=== PATIENT | male | born 1935 | race Caucasian/White ===

== ENCOUNTER 2016-06-15 14:42 | Outpatient (CLI) | payer MEDICARE, OTHER | END 2016-06-15 14:43 | disposition home or self-care (01) | DX: M47.816 Spondylosis without myelopathy or radiculopathy, lumbar region (principal); M51.36 Other intervertebral disc degeneration, lumbar region; M41.85 Other forms of scoliosis, thoracolumbar region ==

== ENCOUNTER 2016-12-17 10:28 | Outpatient (CLI) | payer MEDICARE, OTHER | END 2016-12-17 10:29 | disposition home or self-care (01) | LOC: SC 10:28 | PROVIDERS: ATTEND Nurse Practitioner Family | DX: G47.31 Primary central sleep apnea (principal) | CPT/HCPCS: 99214; G0463; 99212 ==

== ENCOUNTER 2017-03-09 14:54 | Outpatient (CLI) | payer MEDICARE, OTHER | END 2017-03-09 14:55 | disposition home or self-care (01) | LOC: LAB 14:54 | PROVIDERS: ATTEND Urology | DX: N40.1 Benign prostatic hyperplasia with lower urinary tract symptoms (principal) | CPT/HCPCS: 36415; 84153 ==

== ENCOUNTER 2017-05-30 11:44 | Emergency (ER) | payer MEDICARE, OTHER ==
[2017-05-30 11:49] VITALS: BP 163/101
--- NOTE | 2017-05-30 12:15 | ED Physician Documentation ---
PD HPI URI - Stated complaint Stated Complaint: COUGH/CHEST TIGHTNESS/NAUSEA - Chief complaint Chief Complaint: Resp - History obtained from History obtained from: Patient, Family () - History of Present Illness Timing - onset: Other (82-year-old gentleman with history of A. fib/pacemaker on warfarin presents with 2 days of illness. It only really got bad yesterday with cough productive of greenish sputum, mild shortness of breath. He denies fevers, chills, body aches but he does have a mild runny nose. He has had 2 episodes of chest tightness, lasting about an hour each. They were nonexertional. He has no chest pain at this time. No sick contacts or recent travel.) Review of Systems Ten Systems: 10 systems reviewed and negative Constitutional: denies: Fever, Chills Eyes: denies: Decreased vision, Photophobia Ears: denies: Ear pain, Drainage/discharge Nose: reports: Rhinorrhea / runny nose Throat: denies: Sore throat Cardiac: denies: Palpitations, Pedal edema, Calf pain Respiratory: reports: Dyspnea, Cough PD PAST MEDICAL HISTORY - Past Medical History Past Medical History: Yes Cardiovascular: Atrial fibrillation - Past Surgical History Past Surgical History: Yes Ortho: Spine surgery - Present Medications Home Medications: Ambulatory Orders Medication Instructions Recorded Confirmed Albuterol Sulfate [Proventil Hfa 1 - 2 puffs IH Q4H PRN #1 05/30/17 Inhaler] hfa.aer.ad Doxycycline Hyclate 100 mg PO BID #14 tablet 05/30/17 guaiFENesin/CODEINE [Robitussin AC] 5 - 10 ml PO Q6H PRN #120 ml 05/30/17 - Allergies Allergies/Adverse Reactions: Allergies Allergy/AdvReac Type Severity Reaction Status Date / Time No Known Drug Allergies Allergy Verified 05/30/17 11:49 - Living Situation Living Situation: reports: With spouse/s.o. - Social History Does the pt smoke?: No Smoking Status: Former smoker Does the pt drink ETOH?: Yes Does the pt have substance abuse?: No - Family History Family history: reports: Non contributory PD ED PE NORMAL - Vitals Vital signs reviewed: Yes - General General: Alert and oriented X 3, No acute distress - HEENT HEENT: PERRL, EOMI, Ears normal, Moist mucous membranes, Pharynx benign - Neck Neck: Supple, no meningeal sign, No bony TTP - Cardiac Cardiac: RRR, No murmur - Respiratory Respiratory: No respiratory distress, Other (Mildly diminished at the left base and right middle lobe) - Abdomen Abdomen: Soft, Non tender - Extremities Extremities: No deformity, No tenderness to palpate, No edema, No calf tenderness / cord - Neuro Neuro: Alert and oriented X 3, 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, Normal speech - Psych Psych: Normal mood, Normal affect Results - Vitals Vitals: Vital Signs - 24 hr 05/30/17 11:47 Temperature 37.1 C Heart Rate 83 Respiratory 20 Rate Blood Pressure 163/101 H O2 Saturation 96 Oxygen O2 Source Room air - EKG (time done) 1201 Rate: Rate (enter#) (70) Rhythm: Paced Computer interpretation: Agree with computer - Labs Labs: Laboratory Tests 05/30/17 05/30/17 05/30/17 12:30 12:30 12:30 WBC 9.8 RBC 4.10 L Hgb 13.4 L Hct 39.3 L MCV 95.9 H MCH 32.7 H MCHC 34.1 RDW 14.1 Plt Count 138 MPV 8.0 Neut # 7.6 H Lymph # 1.2 L Tama # 0.9 Eos # 0.0 Baso # 0.0 Absolute Nucleated RBC 0.00 Nucleated RBC % 0.0 PT 29.9 H INR 2.8 H Sodium 134 L Potassium 4.2 Chloride 96 L Carbon Dioxide 34 H Anion Gap 4.0 L BUN 15 Creatinine 1.0 Estimated GFR (MDRD) 72 L Glucose 113 H Calcium 9.2 Total Bilirubin 2.1 H AST 34 ALT 32 Alkaline Phosphatase 76 Troponin I Total Protein 6.7 Albumin 4.1 Globulin 2.6 Albumin/Globulin Ratio 1.6 Lipase 22 05/30/17 12:30 WBC RBC Hgb Hct MCV MCH MCHC RDW Plt Count MPV Neut # Lymph # Tama # Eos # Baso # Absolute Nucleated RBC Nucleated RBC % PT INR Sodium Potassium Chloride Carbon Dioxide Anion Gap BUN Creatinine Estimated GFR (MDRD) Glucose Calcium Total Bilirubin AST ALT Alkaline Phosphatase Troponin I < 0.04 Total Protein Albumin Globulin Albumin/Globulin Ratio Lipase - Rads (name of study) 2v chest Radiology: EMP read contemporaneously (Cardiomegaly with mild fluid overload) PD MEDICAL DECISION MAKING - ED course ED course: 82-year-old presents with a syndrome consistent with bronchitis or pneumonia, chest x-ray is relatively clear, the radiologist comments on mild fluid overload. His lab work is reassuring, INR 2.8. The bilirubin of 2.1 was discussed with him and his in follow-up was advised. Departure - Departure Disposition: Home, Self Care Clinical Impression: Bronchitis, Adequate anticoagulation on anticoagulant therapy Condition: Good Record reviewed to determine appropriate education?: Yes Instructions: ED Bronchitis Asthmatic Prescriptions: Albuterol Sulfate [Proventil Hfa Inhaler] 1 - 2 puffs IH Q4H PRN #1 hfa.aer.ad PRN Reason: Cough Doxycycline Hyclate 100 mg PO BID #14 tablet guaiFENesin/CODEINE [Robitussin AC] 5 - 10 ml PO Q6H PRN #120 ml PRN Reason: Cough Comments: Your INR today is 2.8 which is adequate, but I expect it to go up while on antibiotics. Skip your dose tomorrow night and have it checked on Wednesday as is routine. Your bilirubin is a little high at 2.1, discuss this with Dr. Rod in follow-up , follow-up with Dr. Rod later this week. Your blood pressure was elevated today on check into the emergency department. This does not mean that you have hypertension, it is a common phenomenon to come to the emergency department and have elevated blood pressure. I recommend that you see your primary care physician within the week to have it rechecked when you are feeling better.
[2017-05-30 12:37] LABS: BASOPHILS % (AUTO) 0.5 %; EOSINOPHILS % (AUTO) 0.5 %; HGB - HEMOGLOBIN 13.4 g/dL (14.0-18.0); LYMPHOCYTES # (AUTO) 1.2 10^3/uL (1.5-3.5); LYMPHOCYTES % (AUTO) 11.9 %; MEAN CORPUSCULAR HEMOGLOBIN 32.7 pg (27.0-31.0); MEAN CORPUSCULAR HGB CONC 34.1 g/dL (32.0-36.0); MEAN CORPUSCULAR VOLUME 95.9 fL (80.0-94.0); MONOCYTES # (AUTO) 0.9 10^3/uL (0.0-1.0); NEUTROPHILS # (AUTO) 7.6 10^3/uL (1.5-6.6); NEUTROPHILS % (AUTO) 78.1 %; PLT - PLATELET COUNT 138 10^3/uL (130-450); RED CELL DISTRIBUTION WIDTH 14.1 % (12.0-15.0); WHITE BLOOD COUNT 9.8 x10^3/uL (4.8-10.8)
[2017-05-30 12:43] LABS: INR 2.8 (0.8-1.2); PT - PROTHROMBIN TIME 29.9 secs (9.9-12.6)
--- NOTE | 2017-05-30 12:45 | XRAY Preliminary Report ---
Exam: XR CHEST 2 VIEW X-RAY IMPRESSION: 1. No focal consolidation. 2. Cardiomegaly with mild pulmonary vascular congestion. Superimposed infectious process cannot be ex cluded. [facility] SITE ID: [id number]
--- NOTE | 2017-05-30 12:46 | XRAY Report ---
EXAM: CHEST RADIOGRAPHY EXAM DATE: 05/30/2017 12:14 PM. CLINICAL HISTORY: Cough. COMPARISON: Chest radiograph dated 12/23/2012. TECHNIQUE: 2 views. FINDINGS: Lungs/Pleura: Increased interstitial markings in the lung bases with no focal consolidation. No pleur al effusion. Mediastinum: The heart is enlarged. This is new since the prior examination. The pulmonary vasculatur e is indistinct. Other: None. IMPRESSION: 1. No focal consolidation. 2. Cardiomegaly with mild pulmonary vascular congestion. Superimposed infectious process cannot be ex cluded. [facility] Referring Provider Line: [phone] SITE ID: [id number]
[2017-05-30 12:50] LABS: ALBUMIN 4.1 g/dL (3.2-5.5); ALBUMIN/GLOBULIN RATIO 1.6 (1.0-2.2); BILIRUBIN,TOTAL 2.1 mg/dL (0.2-1.0); CALCIUM 9.2 mg/dL (8.5-10.3); TOTAL PROTEIN 6.7 g/dL (6.7-8.2)
== END 2017-05-30 13:10 | disposition home or self-care (01) ==
LOC: ED 11:44
DX: J40 Bronchitis, not specified as acute or chronic (principal); I48.91 Unspecified atrial fibrillation; Z79.01 Long term (current) use of anticoagulants; Z95.0 Presence of cardiac pacemaker; Z87.891 Personal history of nicotine dependence; R03.0 Elevated blood-pressure reading, without diagnosis of hypertension
CPT/HCPCS: 36415; 71046; 80053; 83690; 84484; 85025; 85610; 93005; 99283; 99284

== ENCOUNTER 2017-09-28 08:00 | Outpatient (CLI) | payer MEDICARE, OTHER ==
[2017-09-28 12:43] LABS: BASOPHILS # (AUTO) 0.1 10^3/uL (0.0-0.1); BASOPHILS % (AUTO) 1.2 %; EOSINOPHILS # (AUTO) 0.1 10^3/uL (0.0-0.7); HGB - HEMOGLOBIN 13.7 g/dL (14.0-18.0); LYMPHOCYTES # (AUTO) 1.2 10^3/uL (1.5-3.5); LYMPHOCYTES % (AUTO) 28.3 %; MEAN CORPUSCULAR HEMOGLOBIN 32.7 pg (27.0-31.0); MEAN CORPUSCULAR HGB CONC 33.5 g/dL (32.0-36.0); MEAN CORPUSCULAR VOLUME 97.5 fL (80.0-94.0); MEAN PLATELET VOLUME 8.8 fL (7.4-11.4); MONOCYTES # (AUTO) 0.6 10^3/uL (0.0-1.0); MONOCYTES % (AUTO) 14.6 %; NEUTROPHILS # (AUTO) 2.3 10^3/uL (1.5-6.6); NEUTROPHILS % (AUTO) 52.9 %; PLT - PLATELET COUNT 149 10^3/uL (130-450); RED BLOOD COUNT 4.19 10^6/uL (4.70-6.10); RED CELL DISTRIBUTION WIDTH 14.8 % (12.0-15.0); WHITE BLOOD COUNT 4.4 x10^3/uL (4.8-10.8)
[2017-09-28 13:11] LABS: ALBUMIN 4.1 g/dL (3.2-5.5); ALBUMIN/GLOBULIN RATIO 1.6 (1.0-2.2); BILIRUBIN,TOTAL 0.9 mg/dL (0.2-1.0); CALCIUM 9.3 mg/dL (8.5-10.3); CREATININE 0.9 mg/dL (0.6-1.2); TOTAL PROTEIN 6.7 g/dL (6.7-8.2)
== END 2017-09-28 08:01 ==
LOC: LAB.WCP 08:00
PROVIDERS: ATTEND Family Medicine
DX: R53.83 Other fatigue (principal); I48.91 Unspecified atrial fibrillation; E74.39 Other disorders of intestinal carbohydrate absorption; N28.9 Disorder of kidney and ureter, unspecified
CPT/HCPCS: 36415; 80053; 84443; 85025

== ENCOUNTER 2017-10-04 06:48 | Emergency (ER) | payer MEDICARE, OTHER ==
[2017-10-04] MEDS ORDERED: DEXAMETHASONE 10 MG/ML VIAL PO STA (07:17)
--- NOTE | 2017-10-04 07:19 | ED Physician Documentation ---
PD HPI LOWER EXT INJURY - Stated complaint Stated Complaint: LEFT ANKLE SWOLLEN - Chief complaint Chief Complaint: Ext Problem - History obtained from History obtained from: Patient, Family - History of Present Illness PD HPI LOW EXT INJURY LOCATION: Left, Ankle Type of injury: Other (unknown) Where injury occurred: Home Timing - onset: Last night Timing - duration: Hours Timing - details: Gradual onset, Still present Improved by: Rest, Immobilization Worsened by: Moving, Palpating Associated symptoms: Swelling. No: Weakness, Numbness Contributing factors: Anticoagulated Similar symptoms before: Diagnosis (gout) Recently seen: Not recently seen - Additional information Additional information: 82-year-old male with a history of atrial fibrillation developed spontaneous left ankle pain and swelling yesterday evening. He states that he had been out in his yard came into his home sitting at his computer when he developed pain and swelling in his ankle. The pain was bad enough that he took 2 Vicodin which did not really help much with the pain. He is come in this morning limping able to walk on his ankle with swelling in his ankle. He does relate a prior history of gout Review of Systems Constitutional: denies: Fever Eyes: denies: Decreased vision Ears: denies: Ear pain Nose: denies: Congestion Throat: denies: Sore throat Cardiac: denies: Chest pain / pressure Respiratory: denies: Dyspnea, Cough GI: denies: Abdominal Pain, Nausea, Vomiting : denies: Dysuria Skin: denies: Rash Musculoskeletal: reports: Extremity pain, Joint pain, Joint swelling. denies: Neck pain, Back pain Neurologic: denies: Generalized weakness, Focal weakness, Numbness PD PAST MEDICAL HISTORY - Past Medical History Cardiovascular: Atrial fibrillation - Past Surgical History Past Surgical History: Yes Ortho: Spine surgery - Present Medications Home Medications: Ambulatory Orders Medication Instructions Recorded Confirmed Albuterol Sulfate [Proventil Hfa 1 - 2 puffs IH Q4H PRN #1 05/30/17 Inhaler] hfa.aer.ad Doxycycline Hyclate 100 mg PO BID #14 tablet 05/30/17 guaiFENesin/CODEINE [Robitussin AC] 5 - 10 ml PO Q6H PRN #120 ml 05/30/17 - Allergies Allergies/Adverse Reactions: Allergies Allergy/AdvReac Type Severity Reaction Status Date / Time No Known Drug Allergies Allergy Verified 10/04/17 06:54 - Social History Does the pt smoke?: No Smoking Status: Former smoker Does the pt drink ETOH?: Yes Does the pt have substance abuse?: No PD ED PE NORMAL - Vitals Vital signs reviewed: Yes (hypertensive ) - General General: Alert and oriented X 3, No acute distress, Well developed/nourished - HEENT HEENT: Atraumatic, PERRL, EOMI - Respiratory Respiratory: No respiratory distress - Derm Derm: Normal color, Warm and dry, No rash - Extremities Extremities: No deformity, Other (There is swelling and tenderness to the left ankle joint, both medial and lateral and pain with flexion of the foot. distal n /v intact. ) - Neuro Neuro: No motor deficit, No sensory deficit Eye Opening: Spontaneous Motor: Obeys Commands Verbal: Oriented GCS Score: 15 - Psych Psych: Normal mood, Normal affect Results - Vitals Vitals: Vital Signs - 24 hr 10/04/17 06:52 Temperature 36.5 C Heart Rate 71 Blood Pressure 150/103 H O2 Saturation 100 Oxygen O2 Source Room air - Labs Labs: Laboratory Tests 10/04/17 07:23 Whole Blood INR 2.8 H - Rads (name of study) left ankle Radiology: Prelim report reviewed (Impression: 1. Mild degenerative osteoarthritis of the ankle. 2. A small joint effusion is present. No fracture or other acute osseous abnormality. 3.Mild soft tissue swelling around the ankle.), EMP read indepedently, See rad report Procedures - Splint (location) left ankle Splint applied by: Tech Type of splint: Fiberglass, Posterior Other: Patient tolerated well, No complications, Neurovascular intact, Good alignment PD MEDICAL DECISION MAKING - ED course Complexity details: reviewed old records, reviewed results, re-evaluated patient , considered differential, d/w patient, d/w family ED course: 82-year-old male with history of atrial fibrillation on Coumadin has developed left ankle swelling and pain consistent with acute gout here. He has had gout previously he does not have any known injury to the area there is are no bony abnormalities on the x-ray of the ankle. He does have joint effusion and swelling. He is administered dexamethasone 10 mg orally. Departure - Departure Disposition: 01 Home, Self Care Clinical Impression: Adequate anticoagulation on anticoagulant therapy Gout attack Qualifiers: Gout site: ankle Gout etiology: unspecified cause Laterality: left Qualified Code(s): M10.9 - Gout, unspecified Condition: Stable Instructions: ED Arthritis Gout Follow-Up: Getachew Rod MD [Primary Care Provider] -
--- NOTE | 2017-10-04 07:51 | XRAY Preliminary Report ---
Exam: XR ANKLE 3 VIEW LT IMPRESSION: 1. Mild degenerative osteoarthritis of the ankle. A small joint effusion is present. 2. No fracture or other acute osseous abnormality. 3. Mild soft tissue swelling around the ankle. [facility] SITE ID: [id number]
--- NOTE | 2017-10-04 07:51 | XRAY Report ---
EXAM: LEFT ANKLE RADIOGRAPHY EXAM DATE: 10/04/2017 07:42 AM. CLINICAL HISTORY: Lateral swelling/pain. No known injury. COMPARISON: 01/10/2015. TECHNIQUE: 3 views. FINDINGS: Bones: No fractures or bone lesions. A small calcaneal plantar spur is present. Joints: No subluxation. The ankle mortise is normally aligned. There is mild degenerative osteoarthri tis of the ankle. Small joint effusion is present. Soft Tissues: There is mild soft tissue swelling around the ankle. Extensive vascular calcifications are present. IMPRESSION: 1. Mild degenerative osteoarthritis of the ankle. A small joint effusion is present. 2. No fracture or other acute osseous abnormality. 3. Mild soft tissue swelling around the ankle. [facility] Referring Provider Line: [phone] SITE ID: [id number]
[2017-10-04 09:36] VITALS: BP 143/87
== END 2017-10-04 09:36 | disposition home or self-care (01) ==
LOC: ED 06:48
DX: M10.9 Gout, unspecified (principal); I48.91 Unspecified atrial fibrillation; Z79.01 Long term (current) use of anticoagulants; Z87.891 Personal history of nicotine dependence
CPT/HCPCS: 29515; 85610; 99283

== ENCOUNTER 2017-11-27 08:41 | Outpatient (CLI) | payer MEDICARE, OTHER ==
--- NOTE | 2017-11-28 00:11 | CT Report ---
Procedure Date: 11/27/2017 Accession Number: [id number] / [id number] Procedure: CT - Sinuses CPT Code: FULL RESULT: EXAM: CT MAXILLOFACIAL WITHOUT CONTRAST COMPARISON: CT maxillofacial, 12/25/2014. CLINICAL HISTORY: Chronic pansinusitis, cough. TECHNIQUE: Axial images were acquired of the face without intravenous contrast. Coronal and Sagittal reconstructions are created from source data. In accordance with CT protocol optimization, one or more of the following dose reduction techniques were utilized for this exam: automated exposure control, adjustment of mA and/or KV based on patient size, or use of iterative reconstructive technique. FINDINGS: Incompletely characterized is extensive facet arthropathy involving the left C2-C3 facet, incompletely characterized. Visualized intracranial content shows no discrete masses, there is volume loss. No lytic or blastic bone lesions are seen. Mastoids are clear. Middle ears are clear. Zygomatic arches are intact. Temporomandibular joints are normally located. Medial lateral pterygoid plates are intact. Maxillary sinuses show no evidence of acute or chronic sinusitis. Ethmoid sinuses are clear, there is minimal mucosal thickening anteriorly. Sphenoid sinuses are clear. Nasofrontal ducts are open, frontal sinuses are well-aerated. Findings are quite similar to the 2015 prior study. IMPRESSION: Marked left-sided C2-C3 facet arthropathy, incompletely characterized. No convincing evidence of acute sinusitis. Minimal evidence to suggest chronic sinusitis, there is modest mucosal thickening involving the anterior ethmoid air cells, similar to the prior 2014 study.
== END 2017-11-27 08:42 | disposition home or self-care (01) ==
LOC: DI 08:41
PROVIDERS: ATTEND Otolaryngology
DX: J32.4 Chronic pansinusitis (principal); R05 Cough; M12.88 Other specific arthropathies, not elsewhere classified, other specified site
CPT/HCPCS: 70486

== ENCOUNTER 2017-12-13 10:48 | Outpatient (CLI) | payer MEDICARE, OTHER | END 2017-12-13 10:49 | disposition home or self-care (01) | LOC: SC 10:48 | PROVIDERS: ATTEND Nurse Practitioner Family | DX: G47.33 Obstructive sleep apnea (adult) (pediatric) (principal) | CPT/HCPCS: 99214; G0463; 99212 ==

== ENCOUNTER 2018-02-21 10:20 | Outpatient (CLI) | payer MEDICARE, OTHER | END 2018-02-21 10:21 | disposition home or self-care (01) | LOC: SC 10:20 | PROVIDERS: ATTEND Nurse Practitioner Family | DX: G47.33 Obstructive sleep apnea (adult) (pediatric) (principal) | CPT/HCPCS: 99214; G0463; 99212 ==

== ENCOUNTER 2018-06-07 09:25 | Outpatient (CLI) | payer MEDICARE, OTHER ==
--- NOTE | 2018-06-07 14:54 | XRAY Report ---
Reason: NECK PAIN Procedure Date: 06/07/2018 Accession Number: [id number] / [id number] Procedure: XR - Cervical Spine 2 View CPT Code: FULL RESULT: EXAM: CERVICAL SPINE RADIOGRAPHY EXAM DATE: 06/07/2018 10:22 AM. CLINICAL HISTORY: NECK PAIN. COMPARISONS: Cervical spine 06/16/2012. TECHNIQUE: 3 views. FINDINGS: Alignment: 2 mm anterolisthesis of C4 upon C5 is favored to be degenerative. There is bony fusion of facets at that level. There is cervical kyphosis likely contributing to anterior compression of the C6 vertebral body. Bones: The cervical vertebral bodies and posterior elements are well visualized from the skull base through C7-T1. No fractures or bone lesions. The lateral masses are symmetric. Disks: There is mild disk space narrowing at C3-C4 and C4-C5. There is moderate disk space narrowing at C5-C6. There is severe disk space narrowing at C6-C7 and C7-T1. There are large anterior osteophytes. Facets: Moderate to severe degenerative disease. Soft Tissues: No prevertebral soft tissue swelling. The visualized lung apices are clear. There is calcification of the nuchal ligament. IMPRESSION: Moderate to severe cervical spondylosis without appreciable change. [facility]
--- NOTE | 2018-06-08 10:06 | XRAY Report ---
Reason: NECK PAIN,ANKLE JOINT PAIN,RIGHT Procedure Date: 06/07/2018 Accession Number: [id number] / [id number] Procedure: XR - Ankle 2 View RT CPT Code: FULL RESULT: EXAM: RIGHT ANKLE RADIOGRAPHY EXAM DATE: 06/07/2018 10:19 AM. CLINICAL HISTORY: ANKLE JOINT PAIN,RIGHT. No injury. History of arthritis. COMPARISON: ANKLE 3 VIEW LT 01/10/2015 10:33 AM. TECHNIQUE: 2 views. FINDINGS: Bones: Normal. No fractures or bone lesions. Small ossicles are noted inferior to the medial and lateral malleoli. Joints: Moderate joint space narrowing at the ankle joint diffusely. No subluxation or effusion. Minimal osteophyte formation. No subchondral cyst formation or sclerosis. Soft Tissues: No soft tissue swelling. Extensive atherosclerotic calcification. IMPRESSION: Moderate right ankle joint osteoarthritis. [facility]
== END 2018-06-07 09:26 | disposition home or self-care (01) ==
LOC: DI 09:25
PROVIDERS: ATTEND Family Medicine
DX: M47.812 Spondylosis without myelopathy or radiculopathy, cervical region (principal); M50.30 Other cervical disc degeneration, unspecified cervical region; M48.02 Spinal stenosis, cervical region; M25.78 Osteophyte, vertebrae; M19.071 Primary osteoarthritis, right ankle and foot
CPT/HCPCS: 72040

== ENCOUNTER 2018-07-26 07:25 | Outpatient (CLI) | payer MEDICARE, OTHER ==
[2018-07-26 08:32] LABS: ALBUMIN 3.8 g/dL (3.2-5.5); ALBUMIN/GLOBULIN RATIO 1.3 (1.0-2.2); ALKALINE PHOSPHATASE 72 IU/L (42-121); ALT ALANINE AMINOTRANSFERASE 44 IU/L (10-60); AST ASPARTATE AMINOTRANSFERASE 41 IU/L (10-42); BILIRUBIN,TOTAL 0.7 mg/dL (0.2-1.0); BUN - BLOOD UREA NITROGEN 32 mg/dL (6-20); CHOL/HDL RATIO 2.3 (<5.0); CHOLESTEROL 195 mg/dL; CREATININE 1.4 mg/dL (0.6-1.2); GFR - MDRD 49 (>89); HDL CHOLESTEROL 85 mg/dL; LDL CHOLESTEROL,CALCULATED 101 mg/dL; LDL/HDL RATIO 1.2 (<3.6); TOTAL PROTEIN 6.7 g/dL (6.7-8.2); VLDL CHOLESTEROL 9 mg/dL
[2018-07-26 09:15] LABS: CALCIUM 9.1 mg/dL (8.5-10.3); CARBON DIOXIDE - CO2 29 mmol/L (21-32); CHLORIDE 100 mmol/L (101-111); GLUCOSE 105 mg/dL (70-100); SODIUM 139 mmol/L (135-145)
== END 2018-07-26 07:26 | disposition home or self-care (01) ==
LOC: LAB 07:25
PROVIDERS: ATTEND Internal Medicine Cardiovascular Disease
DX: E78.5 Hyperlipidemia, unspecified (principal); I10 Essential (primary) hypertension
CPT/HCPCS: 36415; 80053; 80061; 83721

== ENCOUNTER 2018-08-01 14:20 | Outpatient (CLI) | payer MEDICARE, OTHER ==
[2018-08-01 14:38] LABS: BILIRUBIN,URINE NEGATIVE (NEGATIVE); GLUCOSE, URINE (UA) NEGATIVE (NEGATIVE); KETONES,URINE (UA) NEGATIVE (NEGATIVE); LEUKOCYTE ESTERASE, URINE NEGATIVE (NEGATIVE); NITRITE,URINE NEGATIVE (NEGATIVE); OCCULT BLOOD,URINE NEGATIVE (NEGATIVE); PROTEIN,URINE NEGATIVE (NEGATIVE); UROBILINOGEN,URINE 0.2 (NORMAL) E.U./dL (NORMAL)
[2018-08-01 14:40] LABS: BASOPHILS # (AUTO) 0.1 10^3/uL (0.0-0.1); BASOPHILS % (AUTO) 1.1 %; EOSINOPHILS # (AUTO) 0.2 10^3/uL (0.0-0.7); EOSINOPHILS % (AUTO) 2.1 %; HGB - HEMOGLOBIN 13.8 g/dL (14.0-18.0); LYMPHOCYTES # (AUTO) 1.3 10^3/uL (1.5-3.5); LYMPHOCYTES % (AUTO) 17.5 %; MEAN CORPUSCULAR HEMOGLOBIN 32.5 pg (27.0-31.0); MEAN CORPUSCULAR HGB CONC 34.2 g/dL (32.0-36.0); MEAN CORPUSCULAR VOLUME 95.2 fL (80.0-94.0); MEAN PLATELET VOLUME 7.8 fL (7.4-11.4); MONOCYTES # (AUTO) 0.7 10^3/uL (0.0-1.0); NEUTROPHILS # (AUTO) 5.1 10^3/uL (1.5-6.6); NEUTROPHILS % (AUTO) 69.3 %; PLT - PLATELET COUNT 167 10^3/uL (130-450); RED BLOOD COUNT 4.26 10^6/uL (4.70-6.10); RED CELL DISTRIBUTION WIDTH 14.8 % (12.0-15.0); WHITE BLOOD COUNT 7.4 x10^3/uL (4.8-10.8)
[2018-08-01 14:45] LABS: BACTERIA,URINE None Seen /HPF (None Seen); CLARITY,URINE CLEAR (CLEAR); RBC,URINE None Seen /HPF (0-5); SQUAMOUS EPITHELIAL CELL,UR NONE SEEN (<= Few)
[2018-08-01 14:51] LABS: MICROALBUM/CREATININE RATIO,UR 7.7 ug/mg (<30.0); MICROALBUMIN,URINE 0.4 mg/dL (0-300.0)
== END 2018-08-01 14:21 | disposition home or self-care (01) ==
LOC: LAB 14:20
PROVIDERS: ATTEND Family Medicine
DX: N18.3 Chronic kidney disease, stage 3 (moderate) (principal)
CPT/HCPCS: 36415; 81001; 82043; 82570; 84443; 85025; 87086

== ENCOUNTER 2018-08-11 15:57 | Outpatient (CLI) | payer MEDICARE, OTHER ==
[2018-08-11 16:18] LABS: ALBUMIN 4.2 g/dL (3.2-5.5); CALCIUM 9.3 mg/dL (8.5-10.3); CREATININE 1.3 mg/dL (0.6-1.2); PHOSPHORUS 3.8 mg/dL (2.5-4.6)
== END 2018-08-11 15:58 | disposition home or self-care (01) ==
LOC: LAB 15:57
PROVIDERS: ATTEND Internal Medicine Nephrology
DX: R94.4 Abnormal results of kidney function studies (principal)
CPT/HCPCS: 36415; 80069

== ENCOUNTER 2018-08-15 08:00 | Outpatient (CLI) | payer MEDICARE, OTHER ==
[2018-08-15 18:50] LABS: BILIRUBIN,URINE NEGATIVE (NEGATIVE); GLUCOSE, URINE (UA) NEGATIVE (NEGATIVE); KETONES,URINE (UA) NEGATIVE (NEGATIVE); LEUKOCYTE ESTERASE, URINE NEGATIVE (NEGATIVE); NITRITE,URINE NEGATIVE (NEGATIVE); OCCULT BLOOD,URINE NEGATIVE (NEGATIVE); PROTEIN,URINE NEGATIVE (NEGATIVE); UROBILINOGEN,URINE 0.2 (NORMAL) E.U./dL (NORMAL)
[2018-08-15 18:52] LABS: CLARITY,URINE CLEAR (CLEAR)
[2018-08-15 19:05] LABS: BACTERIA,URINE None Seen /HPF (None Seen); RBC,URINE None Seen /HPF (0-5); SQUAMOUS EPITHELIAL CELL,UR NONE SEEN (<= Few)
== END 2018-08-15 23:59 | disposition home or self-care (01) ==
LOC: LAB.R 08:00
PROVIDERS: ATTEND Family Medicine
DX: N18.3 Chronic kidney disease, stage 3 (moderate) (principal)
CPT/HCPCS: 81001

== ENCOUNTER 2018-08-17 08:00 | Outpatient (CLI) | payer MEDICARE, OTHER | END 2018-08-17 23:59 | disposition home or self-care (01) | LOC: LAB.WCP 08:00 | PROVIDERS: ATTEND Family Medicine | DX: I48.91 Unspecified atrial fibrillation (principal); Z79.01 Long term (current) use of anticoagulants ==

== ENCOUNTER 2018-08-22 17:08 | Outpatient (CLI) | payer MEDICARE, OTHER ==
--- NOTE | 2018-08-23 11:01 | Ultrasound Report ---
Reason: DECREASED CALCULATED Procedure Date: 08/22/2018 Accession Number: [id number] / [id number] Procedure: US - Retroperitoneal CPT Code: FULL RESULT: EXAM: RENAL ULTRASOUND EXAM DATE: 08/22/2018 05:30 PM. CLINICAL HISTORY: Decreased GFR. History of enlarged prostate. COMPARISON: None. TECHNIQUE: Real-time scanning was performed with static images obtained. FINDINGS: Right Kidney: 11.2 x 5 x 6.4 cm. Normal echotexture with no stones, contour-deforming masses, or hydronephrosis. Possible lower pole parapelvic cyst. Left Kidney: 11 x 5.1 x 4.6 cm. Normal echotexture with no stones, contour-deforming masses, or hydronephrosis. Probable 14 mm lower pole anechoic cyst. Bladder: Bilateral jets seen. The prevoid bladder volume was 250 cc. The postvoid bladder volume was 100 cc. Other: Prostate gland measures 4.2 x 3.2 x 3.9 mm, for estimated volume of 27 cc. IMPRESSION: 1. No appreciable stone or hydronephrosis. 2. Small postvoiding residual 100 cc. [facility]
== END 2018-08-22 17:09 | disposition home or self-care (01) ==
LOC: DI 17:08
PROVIDERS: ATTEND Internal Medicine Nephrology
DX: R94.4 Abnormal results of kidney function studies (principal)
CPT/HCPCS: 76770

== ENCOUNTER 2018-10-12 14:39 | Outpatient (CLI) | payer MEDICARE, OTHER | END 2018-10-12 14:40 | disposition critical access hospital (66) | LOC: EMS 14:39 | PROVIDERS: ATTEND Surgery | DX: M54.5 Low back pain (principal) | CPT/HCPCS: A0425; A0429 ==

== ENCOUNTER 2018-10-12 14:48 | Emergency (ER) | payer MEDICARE, OTHER ==
[2018-10-12] MEDS ORDERED: oxyCODONE 5 MG TABLET PO STA (14:59)
--- NOTE | 2018-10-12 15:01 | ED Physician Documentation ---
PD HPI BACK PAIN - Stated complaint Stated Complaint: L LOWER BACK PX - Chief complaint Chief Complaint: Back Pain - History obtained from History obtained from: Patient, Family, EMS - History of Present Illness Timing - onset: Other (83-year-old gentleman with chronic back pain, also pacemaker in place and on warfarin for atrial fibrillation presents with 2 days of low back pain that started after getting up from a chair. It is severe and progressive low back pain that is sharp and worse with motion in the left lower lumbar spine. It does not radiate. There is no associated weakness, numbness, tingling, saddle anesthesia, incontinence, or fevers. No abdominal pain. He tried tramadol without relief.) Review of Systems Constitutional: denies: Fever, Chills Cardiac: reports: Reviewed and negative Respiratory: reports: Reviewed and negative GI: reports: Reviewed and negative PD PAST MEDICAL HISTORY - Past Medical History Cardiovascular: Atrial fibrillation - Past Surgical History Past Surgical History: Yes Ortho: Spine surgery - Present Medications Home Medications: Ambulatory Orders Medication Instructions Recorded Confirmed Albuterol Sulfate [Proventil Hfa 1 - 2 puffs IH Q4H PRN #1 05/30/17 Inhaler] hfa.aer.ad Doxycycline Hyclate 100 mg PO BID #14 tablet 05/30/17 guaiFENesin/CODEINE [Robitussin AC] 5 - 10 ml PO Q6H PRN #120 ml 05/30/17 Atorvastatin [Lipitor] 0 mg 10/12/18 10/12/18 Finasteride 5 mg PO 10/12/18 10/12/18 Ipratropium [Atrovent] 1 puffs INH Q6H 10/12/18 10/12/18 Lisinopril 5 mg 10/12/18 Loratadine 10 mg PO 10/12/18 10/12/18 Magnesium 250 mg PO 10/12/18 10/12/18 Metoprolol Succinate [Kapspargo 25 mg PO 10/12/18 10/12/18 Sprinkle] Oxycodone HCl/Acetaminophen 1 - 2 each PO Q6H PRN #20 tablet 10/12/18 [Percocet 5-325 mg Tablet] Tamsulosin [Flomax] 0.4 mg PO DAILY 10/12/18 10/12/18 Warfarin [Coumadin] 5 mg PO 1400 10/12/18 10/12/18 traMADol [Ultram] 50 mg PO Q4-6H 10/12/18 10/12/18 - Allergies Allergies/Adverse Reactions: Allergies Allergy/AdvReac Type Severity Reaction Status Date / Time No Known Drug Allergies Allergy Verified 10/12/18 15:04 - Social History Does the pt smoke?: No Smoking Status: Former smoker Does the pt drink ETOH?: Yes Does the pt have substance abuse?: No PD ED PE NORMAL - Vitals Vital signs reviewed: Yes - General General: Alert and oriented X 3, Other (No distress at rest but winces with motion) - Abdomen Abdomen: Soft, Non tender - Back Back: No spinal TTP, Other (Tender in the left paralumbar musculature) - Extremities Extremities: Other (The patient has equal and normal Achilles and patellar reflexes bilaterally. Normal sensation in all areas of the legs. Patient denies saddle anesthesia. Normal strength in flexion-extension at the ankles, knees, and flexion of the hips.) - Neuro Neuro: Alert and oriented X 3, Normal speech Results - Vitals Vitals: Vital Signs - 24 hr 10/12/18 14:51 Temperature 36.6 C Heart Rate 70 Respiratory 18 Rate Blood Pressure 160/93 H O2 Saturation 100 Oxygen O2 Source Room air - Labs Labs: Laboratory Tests 10/12/18 10/12/18 10/12/18 16:36 16:36 16:36 WBC 8.1 RBC 4.17 L Hgb 13.5 L Hct 40.6 L MCV 97.2 H MCH 32.4 H MCHC 33.3 RDW 14.8 Plt Count 145 MPV 8.0 Neut # (Auto) 6.1 Lymph # (Auto) 0.9 L Woodward # (Auto) 0.9 Eos # (Auto) 0.1 Baso # (Auto) 0.0 Absolute Nucleated RBC 0.00 Nucleated RBC % 0.0 PT 42.8 H INR 3.9 H Sodium 134 L Potassium 5.1 H Chloride 96 L Carbon Dioxide 29 Anion Gap 9.0 BUN 23 H Creatinine 1.0 Estimated GFR (MDRD) 72 L Glucose 112 H Calcium 9.0 - Rads (name of study) L spine CT Radiology: EMP read contemporaneously (Multilevel degenerative disease with moderate canal narrowing L4-L5 and L3-L4, no fracture. Increased disc height loss with grade 1 spondylolisthesis at L4-L5) PD MEDICAL DECISION MAKING - ED course ED course: 83-year-old gentleman presents with an acute exacerbation of chronic low back pain. CT is shown. After some pain medication he was ambulatory and functional again and requested discharge. Departure - Departure Disposition: Home, Self Care Clinical Impression: Supratherapeutic INR, Acute exacerbation of chronic low back pain Condition: Good Record reviewed to determine appropriate education?: Yes Instructions: ED Low Back Pain Injury Follow-Up: Kiko Quispe MD [Physician No Access] - Within 1 week Prescriptions: Oxycodone HCl/Acetaminophen [Percocet 5-325 mg Tablet] 1 - 2 each PO Q6H PRN #20 tablet PRN Reason: pain Comments: Skip your warfarin tonight, half dose tomorrow, get your INR checked on Wednesday.
--- NOTE | 2018-10-12 15:45 | CT Report ---
Reason: back pain, L lumbar Procedure Date: 10/12/2018 Accession Number: [id number] / [id number] Procedure: CT - LUMBAR SPINE WO CPT Code: FULL RESULT: EXAM: CT LUMBAR SPINE WITHOUT CONTRAST EXAM DATE: 10/12/2018 03:20 PM. CLINICAL HISTORY: Severe back pain. No trauma. COMPARISONS: LUMBAR SPINE W/O 06/15/2016 3:01 PM. TECHNIQUE: Thin-section axial images were acquired of the lumbar spine from T12 to S1 without contrast. Post-processing: Coronal and sagittal reformats. Other: None. In accordance with CT protocol optimization, one or more of the following dose reduction techniques were utilized for this exam: automated exposure control, adjustment of mA and/or KV based on patient size, or use of iterative reconstructive technique. FINDINGS: Alignment: There is 3 mm of spondylolisthesis at L4-L5. Alignment of the levels appears normal. Bones: Five [id number] lumbar vertebral bodies are present. Negative for acute fracture. No blastic or destructive bone lesion. There is increased degenerative disease. There is superior endplate L2 sclerosis which appears without significant change. There are moderate-sized anterior disk osteophyte spurs from L1-L5. No spondylolysis. Disk Levels/Facets: T12-L1: No significant stenosis. L1-L2: Disk bulge and bilateral mild to moderate facet hypertrophy causes mild central spinal canal narrowing. L2-L3: Broad-based disk bulge and moderate facet hypertrophy with mild disk height loss causes mild to moderate central spinal canal narrowing. L3-L4: Mild to moderate disk height loss with broad-based disk bulge and moderate bilateral facet hypertrophy causing moderate central spinal canal stenosis. L4-L5: Moderate disk height loss is increased since previous. Moderate bilateral facet hypertrophy causing moderate central canal and foraminal stenosis. L5-S1: No significant stenosis. Musculature: Musculature appears symmetric. No paravertebral hematoma or fluid collection. Other: There are diffuse arterial vascular calcifications without aneurysm. IMPRESSION: 1. Multilevel degenerative disease with disk bulge and facet hypertrophy causing moderate spinal canal narrowing L4-L5 and L3-L4. No acute fracture. 2. Increased disk height loss with grade 1 spondylolisthesis at L4-L5, mildly increased compared with 06/15/2016. RADIA
[2018-10-12] MEDS ORDERED: HYDROmorphone 1 MG/ML CARPUJECT IM STA (16:09)
[2018-10-12 16:45] LABS: BASOPHILS % (AUTO) 0.5 %; EOSINOPHILS # (AUTO) 0.1 10^3/uL (0.0-0.7); EOSINOPHILS % (AUTO) 0.9 %; HGB - HEMOGLOBIN 13.5 g/dL (14.0-18.0); LYMPHOCYTES # (AUTO) 0.9 10^3/uL (1.5-3.5); LYMPHOCYTES % (AUTO) 11.5 %; MEAN CORPUSCULAR HEMOGLOBIN 32.4 pg (27.0-31.0); MEAN CORPUSCULAR HGB CONC 33.3 g/dL (32.0-36.0); MEAN CORPUSCULAR VOLUME 97.2 fL (80.0-94.0); MONOCYTES # (AUTO) 0.9 10^3/uL (0.0-1.0); MONOCYTES % (AUTO) 11.5 %; NEUTROPHILS # (AUTO) 6.1 10^3/uL (1.5-6.6); NEUTROPHILS % (AUTO) 75.6 %; PLT - PLATELET COUNT 145 10^3/uL (130-450); RED BLOOD COUNT 4.17 10^6/uL (4.70-6.10); RED CELL DISTRIBUTION WIDTH 14.8 % (12.0-15.0); WHITE BLOOD COUNT 8.1 x10^3/uL (4.8-10.8)
[2018-10-12 16:53] LABS: INR 3.9 (0.8-1.2); PT - PROTHROMBIN TIME 42.8 secs (9.9-12.6)
[2018-10-12 17:25] VITALS: BP 136/82
== END 2018-10-12 17:43 | disposition home or self-care (01) ==
LOC: EDUNIT# → ED 14:48
DX: G89.29 Other chronic pain (principal); M54.5 Low back pain; R79.1 Abnormal coagulation profile; Z95.0 Presence of cardiac pacemaker; Z86.79 Personal history of other diseases of the circulatory system; Z79.01 Long term (current) use of anticoagulants; Z87.891 Personal history of nicotine dependence
CPT/HCPCS: 36415; 72131; 80048; 85025; 85610; 96372; 99283; 99284; A9270; J1170

== ENCOUNTER 2018-11-28 08:00 | Outpatient (CLI) | payer MEDICARE, OTHER | END 2018-11-28 08:01 | disposition home or self-care (01) | LOC: LAB.WCP 08:00 | PROVIDERS: ATTEND Family Medicine | DX: I48.91 Unspecified atrial fibrillation (principal); Z79.01 Long term (current) use of anticoagulants ==

== ENCOUNTER 2018-11-30 10:06 | Outpatient (CLI) | payer MEDICARE, OTHER ==
--- NOTE | 2018-12-05 16:34 | XRAY Report ---
Reason: COUGH Procedure Date: 11/30/2018 Accession Number: [id number] / [id number] Procedure: FL - Modified Barium Swallow W/SP CPT Code: FULL RESULT: EXAM: MODIFIED BARIUM SWALLOW EXAM DATE: 11/30/2018 10:34 AM. CLINICAL HISTORY: Cough. COMPARISON: None. TECHNIQUE: Under the direction of speech pathology, patient swallowed various consistencies of barium under lateral fluoroscopic observation of the neck. Fluoroscopy Time: 37 seconds. Number of Images: 20. FINDINGS: Swallowing Mechanism: Normal oral phase and swallowing reflex. Airway Protection: Normal epiglottic motion. No episodes of tracheal penetration or aspiration with all consistencies of barium. Pharynx: Normal. No significant vallecular or piriform sinus contrast pooling. Other: None. IMPRESSION: Normal modified barium swallow. No aspiration identified. RADIA
== END 2018-11-30 10:07 | disposition home or self-care (01) ==
LOC: DI 10:06
PROVIDERS: ATTEND Otolaryngology
DX: R05 Cough (principal)
CPT/HCPCS: 74230

== ENCOUNTER 2018-12-09 08:00 | Outpatient (CLI) | payer MEDICARE, OTHER | END 2018-12-09 08:01 | disposition home or self-care (01) | LOC: LAB.WCP 08:00 | PROVIDERS: ATTEND Family Medicine | DX: I48.91 Unspecified atrial fibrillation (principal); Z79.01 Long term (current) use of anticoagulants ==

== ENCOUNTER 2018-12-23 | Outpatient (CLI) | payer MEDICARE, OTHER | END 2018-12-23 23:59 | disposition home or self-care (01) ==

== ENCOUNTER 2019-01-06 08:00 | Outpatient (CLI) | payer MEDICARE, OTHER | END 2019-01-06 23:59 | disposition home or self-care (01) | LOC: LAB.N 08:00 | PROVIDERS: ATTEND Family Medicine | DX: I48.91 Unspecified atrial fibrillation (principal); Z79.01 Long term (current) use of anticoagulants | CPT/HCPCS: 85610 ==

== ENCOUNTER 2019-01-18 11:21 | Outpatient (CLI) | payer MEDICARE, OTHER | END 2019-01-18 23:59 | disposition home or self-care (01) | LOC: LAB.N 11:21 | PROVIDERS: ATTEND Family Medicine | DX: Z79.01 Long term (current) use of anticoagulants (principal); I48.91 Unspecified atrial fibrillation | CPT/HCPCS: 85610 ==

== ENCOUNTER 2019-01-24 16:37 | Outpatient (CLI) | payer MEDICARE, OTHER | END 2019-01-24 16:38 | disposition critical access hospital (66) | LOC: EMS 16:37 | PROVIDERS: ATTEND Surgery | DX: R11.0 Nausea (principal); R06.02 Shortness of breath; R05 Cough; R55 Syncope and collapse | CPT/HCPCS: A0425; A0427 ==

== ENCOUNTER 2019-01-24 16:47 | Inpatient (IN) | payer MEDICARE, OTHER ==
--- NOTE | 2019-01-24 16:55 | ED Physician Documentation ---
PD HPI FEVER - Stated complaint Stated Complaint: SOA - History obtained from History obtained from: Patient, EMS - History of Present Illness Timing - onset: Today (He is been very chilled with a productive cough today and feeling short of breath. Denies any pain.) Review of Systems Ten Systems: 10 systems reviewed and negative Constitutional: reports: Fever, Chills, Fatigue Cardiac: denies: Chest pain / pressure, Palpitations, Pedal edema, Calf pain Respiratory: reports: Dyspnea, Cough. denies: Hemoptysis, Wheezing GI: denies: Abdominal Pain, Nausea, Vomiting, Diarrhea PD PAST MEDICAL HISTORY - Past Medical History Cardiovascular: Atrial fibrillation - Past Surgical History Past Surgical History: Yes Ortho: Spine surgery Cardiovascular: Pacemaker - Present Medications Home Medications: Ambulatory Orders Medication Instructions Recorded Confirmed Albuterol Sulfate [Proventil Hfa 1 - 2 puffs IH Q4H PRN #1 05/30/17 Inhaler] [email or web address] Atorvastatin [Lipitor] 20 mg PO DAILY PM 10/12/18 01/24/19 Finasteride 5 mg PO DAILY PM 10/12/18 01/24/19 Ipratropium [Atrovent] 2 puffs INH TID 10/12/18 01/24/19 Loratadine 10 mg PO DAILY PM 10/12/18 01/24/19 Magnesium 500 mg PO DAILY PM 10/12/18 01/24/19 Metoprolol Succinate [Kapspargo 25 mg PO DAILY 10/12/18 01/24/19 Sprinkle] Tamsulosin [Flomax] 0.4 mg PO DAILY PM 10/12/18 01/24/19 Warfarin [Coumadin] 5 mg PO QDWARFARIN 10/12/18 01/24/19 traMADol [Ultram] 50 mg PO PRN PRN 10/12/18 01/24/19 Acetaminophen [Acetaminophen ER] 650 mg PO PRN PRN 01/24/19 01/24/19 Metoprolol Succinate [Toprol Xl] 50 mg PO DAILY PM 01/24/19 01/24/19 Warfarin [Coumadin] 2.5 mg PO QDWARFARIN 01/24/19 01/24/19 - Allergies Allergies/Adverse Reactions: Allergies Allergy/AdvReac Type Severity Reaction Status Date / Time No Known Drug Allergies Allergy Verified 01/24/19 17:02 - Social History Does the pt smoke?: No Smoking Status: Former smoker Does the pt drink ETOH?: Yes Does the pt have substance abuse?: No - Family History Family history: reports: Non contributory PD ED PE NORMAL - Vitals Vital signs reviewed: Yes - General General: Alert and oriented X 3, No acute distress, Well developed/nourished - HEENT HEENT: PERRL, EOMI - Neck Neck: Supple, no meningeal sign, No bony TTP - Cardiac Cardiac: RRR, No murmur - Respiratory Respiratory: No respiratory distress, Other (diminished B bases) - Abdomen Abdomen: Normal bowel sounds, Soft, Non tender - Back Back: No CVA TTP, No spinal TTP - Derm Derm: Normal color, Warm and dry - Extremities Extremities: No edema, No calf tenderness / cord - Neuro Neuro: Alert and oriented X 3, Normal speech Results - Vitals Vitals: Vital Signs - 24 hr 01/24/19 01/24/19 01/24/19 16:51 17:00 17:45 Temperature 37.2 C Heart Rate 69 70 70 Respiratory 24 22 18 Rate Blood Pressure 117/63 117/64 116/58 L O2 Saturation 95 96 97 01/24/19 01/24/19 01/24/19 18:00 18:30 19:00 Temperature Heart Rate 72 70 70 Respiratory 26 H 27 H 28 H Rate Blood Pressure 104/59 L 100/59 L 109/56 L O2 Saturation 98 96 96 Oxygen O2 Source Nasal cannula Oxygen Flow Rate 5 - EKG (time done) 1710 Rate: Rate (enter#) (53) Rhythm: Other (atrial paced) [place]: Normal Intervals: Normal DE QRS: Normal Ischemia: Normal ST segments Computer interpretation: Agree with computer - Labs Labs: Laboratory Tests 01/24/19 01/24/19 01/24/19 16:57 16:57 16:57 WBC 14.0 H RBC 4.05 L Hgb 13.5 L Hct 38.6 L MCV 95.3 H MCH 33.3 H MCHC 35.0 RDW 13.9 Plt Count 145 MPV 10.0 Neut # (Auto) 12.6 H Lymph # (Auto) 0.5 L [place] # (Auto) 0.7 Eos # (Auto) 0.0 Baso # (Auto) 0.1 Absolute Nucleated RBC 0.00 Nucleated RBC % 0.0 PT 43.8 H INR 3.9 H Sodium 134 L Potassium 3.8 Chloride 99 L Carbon Dioxide 22 Anion Gap 13.0 BUN 24 H Creatinine 1.0 Estimated GFR (MDRD) 72 L Glucose 148 H Lactic Acid Calcium 8.9 Total Bilirubin 1.8 H AST 37 ALT 39 Alkaline Phosphatase 73 Troponin I High Sens B-Natriuretic Peptide Total Protein 6.4 L Albumin 3.8 Globulin 2.6 Albumin/Globulin Ratio 1.5 Lipase 30 Urine Color Urine Clarity Urine pH Ur Specific [place] Urine Protein Urine Glucose (UA) Urine Ketones Urine Occult Blood Urine Nitrite Urine Bilirubin Urine Urobilinogen Ur Leukocyte Esterase Ur Microscopic Review Urine Culture Comments 01/24/19 01/24/19 01/24/19 16:57 16:57 16:57 WBC RBC Hgb Hct MCV MCH MCHC RDW Plt Count MPV Neut # (Auto) Lymph # (Auto) [place] # (Auto) Eos # (Auto) Baso # (Auto) Absolute Nucleated RBC Nucleated RBC % PT INR Sodium Potassium Chloride Carbon Dioxide Anion Gap BUN Creatinine Estimated GFR (MDRD) Glucose Lactic Acid 2.1 Calcium Total Bilirubin AST ALT Alkaline Phosphatase Troponin I High Sens 14.1 B-Natriuretic Peptide Total Protein Albumin Globulin Albumin/Globulin Ratio Lipase Urine Color YELLOW Urine Clarity CLEAR Urine pH 7.5 Ur Specific [place] 1.015 Urine Protein NEGATIVE Urine Glucose (UA) NEGATIVE Urine Ketones TRACE Urine Occult Blood NEGATIVE Urine Nitrite NEGATIVE Urine Bilirubin NEGATIVE Urine Urobilinogen 0.2 (NORMAL) Ur Leukocyte Esterase NEGATIVE Ur Microscopic Review NOT INDICATED Urine Culture Comments NOT INDICATED 01/24/19 16:58 WBC RBC Hgb Hct MCV MCH MCHC RDW Plt Count MPV Neut # (Auto) Lymph # (Auto) [place] # (Auto) Eos # (Auto) Baso # (Auto) Absolute Nucleated RBC Nucleated RBC % PT INR Sodium Potassium Chloride Carbon Dioxide Anion Gap BUN Creatinine Estimated GFR (MDRD) Glucose Lactic Acid Calcium Total Bilirubin AST ALT Alkaline Phosphatase Troponin I High Sens B-Natriuretic Peptide 354 H Total Protein Albumin Globulin Albumin/Globulin Ratio Lipase Urine Color Urine Clarity Urine pH Ur Specific [place] Urine Protein Urine Glucose (UA) Urine Ketones Urine Occult Blood Urine Nitrite Urine Bilirubin Urine Urobilinogen Ur Leukocyte Esterase Ur Microscopic Review Urine Culture Comments PD MEDICAL DECISION MAKING - ED course ED course: 83-year-old gentleman on warfarin presents with clinical pneumonia His chest x-ray does not show it yet, but given the white count, productive cough, and Rigors I am treating it as such with Rocephin and Zithromax after blood cultures. He is very mildly altered, very weak per the , 2 person assist. As such she will be being admitted for further evaluation and treatment and I spoke for Dr. Castillo for same at 7:30 PM. Departure - Departure Disposition: 66 [facility] DC/Xfer Clinical Impression: Supratherapeutic INR, Pneumonia Condition: Serious
[2019-01-24 17:06] LABS: BASOPHILS # (AUTO) 0.1 10^3/uL (0.0-0.1); BASOPHILS % (AUTO) 0.4 %; EOSINOPHILS % (AUTO) 0.1 %; HGB - HEMOGLOBIN 13.5 g/dL (14.0-18.0); LYMPHOCYTES # (AUTO) 0.5 10^3/uL (1.5-3.5); LYMPHOCYTES % (AUTO) 3.8 %; MEAN CORPUSCULAR HEMOGLOBIN 33.3 pg (27.0-31.0); MEAN CORPUSCULAR VOLUME 95.3 fL (80.0-94.0); MONOCYTES # (AUTO) 0.7 10^3/uL (0.0-1.0); MONOCYTES % (AUTO) 4.9 %; NEUTROPHILS # (AUTO) 12.6 10^3/uL (1.5-6.6); NEUTROPHILS % (AUTO) 89.9 %; PLT - PLATELET COUNT 145 10^3/uL (130-450); RED BLOOD COUNT 4.05 10^6/uL (4.70-6.10); RED CELL DISTRIBUTION WIDTH 13.9 % (12.0-15.0)
[2019-01-24 17:15] LABS: INR 3.9 (0.8-1.2); PT - PROTHROMBIN TIME 43.8 secs (9.9-12.6)
[2019-01-24 17:18] LABS: ALBUMIN 3.8 g/dL (3.2-5.5); ALBUMIN/GLOBULIN RATIO 1.5 (1.0-2.2); BILIRUBIN,TOTAL 1.8 mg/dL (0.2-1.0); CALCIUM 8.9 mg/dL (8.5-10.3); TOTAL PROTEIN 6.4 g/dL (6.7-8.2)
[2019-01-24] MEDS ORDERED: SODIUM CHLORIDE 0.9% 1,000 ML IV ONE (17:22)
--- NOTE | 2019-01-24 18:18 | XRAY Report ---
Reason: cough fever soa Procedure Date: 01/24/2019 Accession Number: [id number] / [id number] Procedure: XR - Chest 2 View X-Ray CPT Code: 29935 FULL RESULT: EXAM: CHEST RADIOGRAPHY EXAM DATE: 01/24/2019 05:44 PM. CLINICAL HISTORY: Cough fever soa. COMPARISON: CHEST 2 VIEW 05/30/2017 12:13 PM. TECHNIQUE: 2 views. FINDINGS: Lungs/Pleura: Mild pulmonary edema.no focal opacities evident. No pleural effusion. No pneumothorax. Normal volumes. Mediastinum: Moderate cardiomegaly. Dual lead ICD device projected over left chest wall. Other: None. IMPRESSION: Mild pulmonary edema.Moderate cardiomegaly. RADIA
[2019-01-24] MEDS ORDERED: cefTRIAXone 2 GM in SODIUM CHLORIDE 0.9% MINIBAG 100 ML IV STA (18:33)
[2019-01-24] MEDS ORDERED: AZITHROMYCIN INJ 500 MG in SODIUM CHLORIDE 0.9% 250 ML IV STA (18:33)
[2019-01-24 19:21] LABS: BILIRUBIN,URINE NEGATIVE (NEGATIVE); GLUCOSE, URINE (UA) NEGATIVE (NEGATIVE); KETONES,URINE (UA) TRACE mg/dL (NEGATIVE); LEUKOCYTE ESTERASE, URINE NEGATIVE (NEGATIVE); NITRITE,URINE NEGATIVE (NEGATIVE); OCCULT BLOOD,URINE NEGATIVE (NEGATIVE); PH,URINE 7.5 PH (5.0-7.5); PROTEIN,URINE NEGATIVE (NEGATIVE); UROBILINOGEN,URINE 0.2 (NORMAL) E.U./dL (NORMAL)
[2019-01-24 19:25] LABS: CLARITY,URINE CLEAR (CLEAR)
[2019-01-24] MEDS ORDERED: SODIUM CHLORIDE FLUSH 0.9% 10 ML SYRINGE IVP PRN (19:34)
[2019-01-24] MEDS ORDERED: ACETAMINOPHEN 325 MG TABLET PO PRN (19:34)
[2019-01-24] MEDS ORDERED: ONDANSETRON 4 MG/2 ML VIAL IVP PRN (19:34)
[2019-01-24] MEDS: SODIUM CHLORIDE 0.9% 1,000 ML IV SCH (20:40)
[2019-01-24] MEDS ORDERED: IPRATROPIUM/ALBUTEROL 3 ML NEB INH PRN (21:02)
--- NOTE | 2019-01-24 21:07 | HISTORY & PHYSICAL EXAMINATION ---
Chief Complaint - Chief Complaint Chief Complaint: Cough History of Present Illness - Admitted From Admitted From:: Home - History Obtained From Records Reviewed: Yes History obtained from: Patient, Spouse - History of Present Illness HPI Comment/Other: This is a 83 year old male with a past medical history significant for atrial fibrillation s/p pacemaker and on coumadin, ANISH on CPAP, and BPH who presents from home today due to a worsening cough. He reports he has had a chronic cough for a few months now and he has been evaluated by pulmonology and ENT. Last night, his cough became more severe and it woke him up from his sleep. He was unable to sleep well last night and his cough did not get better today so he seeked medical attention. He reports the cough is productive, associated with clear blood tinged sputum at times. He reports intermittent shortness of breath but currently denies dyspnea or chest pain. He also denies fevers but reports chills that began yesterday accompanied with nausea and dry heaves but no emesis. He has also had poor appetite for past 24 hours. He reports feeling weaker the past two days and that normally he ambulates on his own or uses a cane but he required two people for assistance. He reports no recent travel or sick contacts. His reports that EMS mentioned he appeared cyanotic upon their arrival. In the ER, he was afebrile, normotensive and without tachycardia. He was tachypnic and hypoxic requiring 5L of oxygen via nasal cannula. Labs were significant for an elevated white count with a left shift. He also had mild hyponatremia and elevated T bili of 1.8. Troponin was negativ. Lactic was normal. BNP elevated at 354 which is increased compared to prior value of 127 from 6 years ago. X-ray was suggestive of mild pulmonary vascular congestion. Patient will be admitted for further management of his respiratory failure. Of note, I did speak with the patient and his regarding goals of care. The patient states that he is a DNR and that he would not want CPR. He is agreeable to mechanical ventilation but only on a temporary basis. History - Past Medical History Cardiovascular: reports: Atrial fibrillation Respiratory: reports: Sleep apnea, CPAP use Neuro: reports: None Endocrine/Autoimmune: reports: None GI: reports: None : reports: None HEENT: reports: Chronic hearing loss Psych: reports: None Musculoskeletal: reports: Osteoarthritis Derm: reports: None Other Past Medical History: bipap use - Past Surgical History Ortho: reports: Spine surgery Cardiovascular: reports: Pacemaker - Family & Social History Family History Comment/Other: He reports his father from heart disease when the patient was a child. He has a brother who had Hogkin's. His mother has diabetes. He reports no other family history. Living arrangement: At home Living Situation: With spouse/s.o. Social History Notes: He has lived on [facility] for the past 20 years with his . 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 He smoked a pack a year for 20 years but quite in 1974. He drinks one glass of wine a day. - Substance History Use: Uses substance without health or social issues: Alcohol Meds/Allgy - Home Medications Home Medications: Ambulatory Orders Medication Instructions Recorded Confirmed Albuterol Sulfate [Proventil Hfa 1 - 2 puffs IH Q4H PRN #1 05/30/17 Inhaler] [email or web address] Atorvastatin [Lipitor] 20 mg PO DAILY PM 10/12/18 01/24/19 Finasteride 5 mg PO DAILY PM 10/12/18 01/24/19 Ipratropium [Atrovent] 2 puffs INH TID 10/12/18 01/24/19 Loratadine 10 mg PO DAILY PM 10/12/18 01/24/19 Magnesium 500 mg PO DAILY PM 10/12/18 01/24/19 Metoprolol Succinate [Kapspargo 25 mg PO DAILY 10/12/18 01/24/19 Sprinkle] Tamsulosin [Flomax] 0.4 mg PO DAILY PM 10/12/18 01/24/19 Warfarin [Coumadin] 5 mg PO QDWARFARIN 10/12/18 01/24/19 traMADol [Ultram] 50 mg PO PRN PRN 10/12/18 01/24/19 Acetaminophen [Acetaminophen ER] 650 mg PO PRN PRN 01/24/19 01/24/19 Metoprolol Succinate [Toprol Xl] 50 mg PO DAILY PM 01/24/19 01/24/19 Warfarin [Coumadin] 2.5 mg PO QDWARFARIN 01/24/19 01/24/19 - Allergies Allergies/Adverse Reactions: Allergies Allergy/AdvReac Type Severity Reaction Status Date / Time No Known Drug Allergies Allergy Verified 01/24/19 17:02 Review of Systems - Constitutional Constitutional: reports: Fatigue, Chills, Weakness, Poor appetite. denies: Fever - Ears, Nose & Throat Ears, Nose & Throat: reports: Hearing loss - Cardiovascular Cariovascular: reports: Decr. exercise tolerance. denies: Chest pain, Edema, Lightheadedness - Respiratory Respiratory: reports: Cough, Sputum production. denies: Hemoptysis, SOB at rest, SOB with exertion - Gastrointestinal Gastrointestinal: reports: Nausea, Poor appetite. denies: Abdominal pain, Constipation, Diarrhea, Black stools, Bloody stools, Vomiting - Genitourinary Genitourinary: denies: Dysuria, Frequency, Urgency, Hematuria - Musculoskeletal Musculoskeletal: denies: Limited range of motion, Muscle weakness - Integumentary Integumentary: denies: Rash - Neurological Neurological: reports: General weakness. denies: Focal weakness, Headache, Dizziness, Numbness - Hematologic/Lymphatic Hematologic/Lymphatic: denies: Bleeding tendencies - All Other Systems All Other Systems: reports: Reviewed and negative Prior Level of Functionality: He is independent with ADL's. Normally ambulates on his own or with a cane. Exam - Vital Signs Reviewed Vital Signs: Yes Vital Signs: Vital Signs x48h Temp Pulse Pulse Resp BP BP Pulse Ox 01/24/19 20:10 37.4 C 71 24 93/55 L 96 01/24/19 19:30 70 20 106/60 95 01/24/19 19:00 70 28 H 109/56 L 96 01/24/19 18:30 70 27 H 100/59 L 96 01/24/19 18:00 72 26 H 104/59 L 98 01/24/19 17:45 70 18 116/58 L 97 01/24/19 17:00 70 22 117/64 96 01/24/19 16:51 37.2 C 69 24 117/63 95 - Physical Exam General Appearance: positive: No acute distress, Alert Eyes Bilateral: positive: Normal inspection, Conjunctivae nml ENT: positive: Dry mucous membranes Neck: positive: Nml inspection Respiratory: positive: Rales, Other (Tachypnic but not in respiratory distress.). negative: Wheezes, Rhonchi Cardiovascular: positive: Regular rate & rhythm, No murmur. negative: Tachycardia, Bradycardia, Systolic murmur, Diastolic murmur Abdomen: positive: Non-tender, No distention. negative: Tenderness, Guarding, Rebound Skin: positive: Color nml, No rash, Warm, Dry Extremities: positive: No pedal edema Neurologic/Psychiatric: positive: Oriented x3, Other (No focal motor deficits). negative: Disoriented to person, Disoriented to place, Disoriented to time, Sensory loss Sepsis Event Note (H) - Evaluation Current Stage of Sepsis: Sepsis Possible source of Sepsis: positive: Pulmonary - Sepsis Criteria Sepsis Criteria: Recorded Respiratory Rate greater than 20, Respiratory: Increasing oxygen requirements, WBC count greater than 12,000 or less than 4000 Conclusion/Plan - Problem List (1) Acute respiratory failure with hypoxia Conclusion/Plan: Suspect this is secondary to pneumonia rather than CHF. Although his x-ray does not reveal an obvious infiltrate and is suggestive of mild pulmonary vascular c ongestion, I believe this is more likely pneumonia given his acute presentation, elevated white count and lack of lower extremity edema. His BNP is also only minimally elevated. Required 5L of oxygen via nasal cannula on admission. - IV antibiotics - Duoneb PRN - Tessalon PRN - Check Echo - Supplemental oxygen as needed, wean for goal O2 > 92% (2) Sepsis due to pneumonia Conclusion/Plan: Presented with leukocytosis, cough, hypoxia, and tachypnea. No hypotension or lactic acidosis. X-ray and symptoms and suggestive of pulmonary source. Urinalysis is unremarkable. - Ceftriaxone IV and Azithromycin to cover for community acquired pneumonia - IV hydration - Follow up blood cultures - Daily CBC (3) Atrial fibrillation Conclusion/Plan: V paced on telemetry. On Coumadin and Metoprolol. INR elevated. - Hold metoprolol in setting of sepsis, will restart as he clinically improves - Monitor on telemetry (4) Hyponatremia Conclusion/Plan: Suspect this is hypovolemic hyponatremia as he appears hypovolemic on exam. Sodium is 134. - Should improve with IV hydration - Monitor BMP (5) Supratherapeutic INR Conclusion/Plan: INR elevated at 3.9. Reports INR last week was 2.3. No signs of significant bleeding although he reports blood tinged sputum. - Hold coumadin tonight - Check INR in AM (6) BPH (benign prostatic hyperplasia) Conclusion/Plan: He is on Flomax and Finasteride at home. Stable. - Resume home medications in AM (7) ANISH on CPAP Conclusion/Plan: Stable. - Continue home CPAP (8) Hyperlipidemia Conclusion/Plan: Stable. On statin. - Resume Statin - Lab Results Lab results reviewed: Yes Lisandro Bones: 01/24/19 16:57 01/24/19 16:57 - Diagnostic Imaging Results Diagnostic Imaging Results: positive: Final report reviewed, Read independently Core Measures - Anticipated LOS I expect patient to be DC'd or transferred within 96 hours.: Yes - Issues Hospital Issues and Management Plan: Acute hypoxic respiratory failure and sepsis secondary to pneumonia requiring IV antibiotics. - DVT/VTE - Prophylaxis VTE/DVT Device ordered at admit?: Yes VTE/DVT Prophylaxis med ordered at admit?: No
[2019-01-25] MEDS: SODIUM CHLORIDE FLUSH 0.9% 10 ML SYRINGE IVP SCH ×4 (01:11→23:45)
[2019-01-25 05:25] LABS: BASOPHILS % (AUTO) 0.2 %; EOSINOPHILS % (AUTO) 0.2 %; HGB - HEMOGLOBIN 11.7 g/dL (14.0-18.0); LYMPHOCYTES % (AUTO) 5.5 %; MEAN CORPUSCULAR HEMOGLOBIN 32.8 pg (27.0-31.0); MEAN CORPUSCULAR HGB CONC 33.7 g/dL (32.0-36.0); MEAN CORPUSCULAR VOLUME 97.2 fL (80.0-94.0); MEAN PLATELET VOLUME 10.5 fL (7.4-11.4); MONOCYTES % (AUTO) 5.4 %; NEUTROPHILS % (AUTO) 87.7 %; PLT - PLATELET COUNT 122 10^3/uL (130-450); RED BLOOD COUNT 3.57 10^6/uL (4.70-6.10); RED CELL DISTRIBUTION WIDTH 14.6 % (12.0-15.0); WHITE BLOOD COUNT 16.9 x10^3/uL (4.8-10.8)
[2019-01-25 05:33] LABS: INR 3.4 (0.8-1.2); PT - PROTHROMBIN TIME 37.8 secs (9.9-12.6)
[2019-01-25 05:36] LABS: ABNORMAL LYMPHS % (MANUAL) 0 %; BAND NEUTROPHILS % (MANUAL) 0 %
[2019-01-25 05:37] LABS: CALCIUM 8.1 mg/dL (8.5-10.3); CREATININE 1.1 mg/dL (0.6-1.2); MAGNESIUM 1.6 mg/dL (1.7-2.8); PHOSPHORUS 3.7 mg/dL (2.5-4.6)
[2019-01-25 05:57] LABS: LYMPHOCYTES # (MANUAL) 0.7 10^3/uL (1.5-3.5); LYMPHOCYTES % (MANUAL) 4 %; MONOCYTES # (MANUAL) 0.8 10^3/uL (0.0-1.0)
[2019-01-25 05:58] LABS: PLATELET MORPHOLOGY NORMAL APPEARANCE (NORMAL); RBC MORPHOLOGY (MULTIPLE) NORMAL APPEARANCE (NORMAL)
[2019-01-25 05:59] LABS: DIFFERENTIAL COMMENT MANUAL DIFFERENTIAL; PLATELET ESTIMATE, MANUAL DECREASED (<130,000) (NORMAL)
[2019-01-25] MEDS: SODIUM CHLORIDE 0.9% 1,000 ML IV SCH (06:18)
[2019-01-25] MEDS ORDERED: SODIUM CHLORIDE 0.9% 1,000 ML IV SCH (07:48)
[2019-01-25] MEDS ORDERED: ALBUTEROL NEB 2.5 MG/3 ML INH PRN (07:52)
[2019-01-25] MEDS: MAGNESIUM OXIDE 400 MG TABLET PO SCH (09:12)
--- NOTE | 2019-01-25 14:17 | PROVIDER PROGRESS NOTE ---
Subjective - Prog Note Date Prog Note Date: 01/25/19 - Subjective Pt reports feeling: Improved Subjective: pt report he feel better, and breath better. his sats was 100% on room air now. But pt's WBC increased from yesterday. pt report he still had cough. he denies fever, chill, chest pain, headache. Current Medications - Current Medications Current Medications: Active Medications Acetaminophen (Tylenol) 650 mg PO Q6HR PRN PRN Reason: Pain 1 to 4 Albuterol () 2.5 mg INH RTQ4H PRN PRN Reason: Wheezing Albuterol/Ipratropium (Duoneb) 3 ml INH Q4HR PRN PRN Reason: Wheezing Atorvastatin Calcium (Lipitor) 20 mg PO QPM [facility] Benzonatate (Tessalon) 100 mg PO TID PRN PRN Reason: Cough Finasteride (Proscar) 5 mg PO DAILY PM [facility] Guaifenesin (Robitussin Liquid) 100 mg PO Q6HR PRN PRN Reason: Cough Azithromycin 500 mg/ Sodium (Chloride) 250 mls @ 250 mls/hr IV Q24H [facility] Ceftriaxone Sodium 1 gm/ (Sodium Chloride) 100 mls @ 200 mls/hr IV Q24H [facility] Magnesium Oxide (Mag Ox) 400 mg PO DAILYWM [facility] Last Admin: 01/25/19 09:12 Dose: 400 mg Metoprolol Succinate (Toprol Xl) 50 mg PO DAILY PM [facility] Non-Formulary Medication (Loratadine [Loratadine]) 10 mg PO DAILY PM [facility] Non-Formulary Medication (Metoprolol Succinate [Kapspargo Sprinkle]) 25 mg PO DAILY [facility] Ondansetron HCl (Zofran Inj) 4 mg IVP Q6HR PRN PRN Reason: Nausea / Vomiting Sodium Chloride (Normal Saline Flush 0.9%) 10 ml IVP PRN PRN PRN Reason: NEEDED PER PROVIDER ORDERS Sodium Chloride (Normal Saline Flush 0.9%) 10 ml IVP 0100,0900,1700 [facility] Last Admin: 01/25/19 09:12 Dose: Not Given Tamsulosin HCl (Flomax) 0.4 mg PO DAILY PM [facility] Tramadol HCl (Ultram) 50 mg PO PRN PRN PRN Reason: PAIN Atorvastatin [Lipitor] 20 mg PO DAILY PM 10/12/18 Finasteride 5 mg PO DAILY PM 10/12/18 Ipratropium [Atrovent] 2 puffs INH TID 10/12/18 Loratadine 10 mg PO DAILY PM 10/12/18 Magnesium 500 mg PO DAILY PM 10/12/18 Metoprolol Succinate [Kapspargo Sprinkle] 25 mg PO DAILY 10/12/18 Tamsulosin [Flomax] 0.4 mg PO DAILY PM 10/12/18 Warfarin [Coumadin] 5 mg PO QDWARFARIN 10/12/18 traMADol [Ultram] 50 mg PO PRN PRN 10/12/18 Acetaminophen [Acetaminophen ER] 650 mg PO PRN PRN 01/24/19 Metoprolol Succinate [Toprol Xl] 50 mg PO DAILY PM 01/24/19 Warfarin [Coumadin] 2.5 mg PO QDWARFARIN 01/24/19 Objective - Vital Signs/Intake & Output Reviewed Vital Signs: Yes Vital Signs: Vital Signs x48h Temp Pulse Pulse Pulse Pulse Resp BP 01/25/19 12:19 37.0 C 69 16 01/25/19 10:10 70 70 132/70 H 01/25/19 09:12 66 18 01/25/19 08:00 36.9 C 70 17 BP BP Pulse Ox 01/25/19 12:19 129/69 100 01/25/19 10:10 116/66 01/25/19 09:12 01/25/19 08:00 128/66 94 Intake & Output: Intake & Output 01/22/19 01/23/19 01/24/19 01/25/19 23:59 23:59 23:59 23:59 Intake Total 1450 1213.333 Output Total 750 Balance 1450 463.333 - Objective General Appearance: positive: No acute distress, Alert. negative: Lethargic Eyes Bilateral: positive: Normal inspection, PERRL, No lid inflammation, Conjunctivae nml ENT: positive: ENT inspection nml, Pharynx nml, No signs of dehydration. negative: Purulent nasal drainage, Pharyngeal erythema, Oral lesions Neck: positive: Nml inspection, Thyroid nml, No JVD, Trachea midline. negative: Thyromegaly, Lymphadenopathy (R), Lymphadenopathy (L), Stiff neck, Swelling/bruising, Tracheal deviation Respiratory: positive: Chest non-tender, No respiratory distress. negative: Wheezes, Rales, Rhonchi Cardiovascular: positive: Regular rate & rhythm, No murmur, No gallop. negative: Irregularly irregular, Extrasystoles, Tachycardia, Bradycardia, JVD present, Systolic murmur, Diastolic murmur Peripheral Pulses: 2+ Radial (R), 2+ Radial (L), 2+ Dorsalis pedis (R), 2+ Dorsalis pedis (L) Abdomen: positive: Non-tender, No organomegaly, Nml bowel sounds, No distention. negative: Tenderness, Guarding, Rebound Back: positive: Nml inspection. negative: CVA tenderness (R), CVA tenderness (L) Skin: positive: Color nml, No rash, Warm, Dry. negative: Cyanosis, Diaphoresis, Pallor Extremities: positive: Non-tender, Full ROM, Nml appearance. negative: Calf tenderness, Joint swelling, Wenceslao's sign/cords Neurologic/Psychiatric: positive: Oriented x3, Motor nml, Sensation nml, Mood/affect nml. negative: Weakness, Sensory loss, Facial droop, Slurred/abnml speech, Depressed mood/affect - Lab Results Fish Bones: 01/25/19 05:00 01/25/19 05:00 Other Labs: Lab Results x24hrs 01/25/19 01/25/19 01/25/19 Range/Units 05:00 05:00 05:00 WBC 16.9 H (4.8-10.8) x10^3/uL RBC 3.57 L (4.70-6.10) 10^6/uL Hgb 11.7 L (14.0-18.0) g/dL Hct 34.7 L (42.0-52.0) % MCV 97.2 H (80.0-94.0) fL MCH 32.8 H (27.0-31.0) pg MCHC 33.7 (32.0-36.0) g/dL RDW 14.6 (12.0-15.0) % Plt Count 122 L (130-450) 10^3/uL MPV 10.5 (7.4-11.4) fL Neut # (Auto) Not Reportable (1.5-6.6) 10^3/uL Lymph # (Auto) Not Reportable (1.5-3.5) 10^3/uL [place] # (Auto) Not Reportable (0.0-1.0) 10^3/uL Eos # (Auto) Not Reportable (0.0-0.7) 10^3/uL Baso # (Auto) Not Reportable (0.0-0.1) 10^3/uL Absolute Nucleated RBC Not Reportable x10^3/uL Total Counted 100 Band Neuts % (Manual) 0 (0 - 10) % Abnorm Lymph % (Manual) 0 % Nucleated RBC % Not Reportable /100WBC Neutrophils # (Manual) 15.4 H (1.5-6.6) 10^3/uL Lymphocytes # (Manual) 0.7 L (1.5-3.5) 10^3/uL Monocytes # (Manual) 0.8 (0.0-1.0) 10^3/uL Eosinophils # (Manual) 0.0 (0-0.7) 10^3/uL Basophils # (Manual) 0.0 (0-0.1) 10^3/uL Differential Comment MANUAL DIFFERENTIAL WBC Morphology NORMAL APPEARANCE (NORMAL) Platelet Estimate DECREASED (<130,000) (NORMAL) Platelet Morphology NORMAL APPEARANCE (NORMAL) RBC Morph Micro Appear NORMAL APPEARANCE (NORMAL) PT 37.8 H (9.9-12.6) secs INR 3.4 H (0.8-1.2) Sodium 137 (135-145) mmol/L Potassium 4.1 (3.5-5.0) mmol/L Chloride 104 (101-111) mmol/L Carbon Dioxide 24 (21-32) mmol/L Anion Gap 9.0 (6-13) BUN 23 H (6-20) mg/dL Creatinine 1.1 (0.6-1.2) mg/dL Estimated GFR (MDRD) 64 L (>89) Glucose 137 H (70-100) mg/dL Lactic Acid (0.5-2.2) mmol/L Calcium 8.1 L (8.5-10.3) mg/dL Phosphorus 3.7 (2.5-4.6) mg/dL Magnesium 1.6 L (1.7-2.8) mg/dL Total Bilirubin (0.2-1.0) mg/dL AST (10-42) IU/L ALT (10-60) IU/L Alkaline Phosphatase (42-121) IU/L Troponin I High Sens (2.3-19.7) pg/mL B-Natriuretic Peptide (5-100) pg/mL Total Protein (6.7-8.2) g/dL Albumin (3.2-5.5) g/dL Globulin (2.1-4.2) g/dL Albumin/Globulin Ratio (1.0-2.2) Lipase (22-51) U/L Urine Color Urine Clarity (CLEAR) Urine pH (5.0-7.5) PH Ur Specific [place] (1.002-1.030) Urine Protein (NEGATIVE) mg/dL Urine Glucose (UA) (NEGATIVE) mg/dL Urine Ketones (NEGATIVE) mg/dL Urine Occult Blood (NEGATIVE) Urine Nitrite (NEGATIVE) Urine Bilirubin (NEGATIVE) Urine Urobilinogen (NORMAL) E.U./dL Ur Leukocyte Esterase (NEGATIVE) Ur Microscopic Review Urine Culture Comments 01/24/19 01/24/19 01/24/19 Range/Units 16:58 16:57 16:57 WBC (4.8-10.8) x10^3/uL RBC (4.70-6.10) 10^6/uL Hgb (14.0-18.0) g/dL Hct (42.0-52.0) % MCV (80.0-94.0) fL MCH (27.0-31.0) pg MCHC (32.0-36.0) g/dL RDW (12.0-15.0) % Plt Count (130-450) 10^3/uL MPV (7.4-11.4) fL Neut # (Auto) (1.5-6.6) 10^3/uL Lymph # (Auto) (1.5-3.5) 10^3/uL [place] # (Auto) (0.0-1.0) 10^3/uL Eos # (Auto) (0.0-0.7) 10^3/uL Baso # (Auto) (0.0-0.1) 10^3/uL Absolute Nucleated RBC x10^3/uL Total Counted Band Neuts % (Manual) (0 - 10) % Abnorm Lymph % (Manual) % Nucleated RBC % /100WBC Neutrophils # (Manual) (1.5-6.6) 10^3/uL Lymphocytes # (Manual) (1.5-3.5) 10^3/uL Monocytes # (Manual) (0.0-1.0) 10^3/uL Eosinophils # (Manual) (0-0.7) 10^3/uL Basophils # (Manual) (0-0.1) 10^3/uL Differential Comment WBC Morphology (NORMAL) Platelet Estimate (NORMAL) Platelet Morphology (NORMAL) RBC Morph Micro Appear (NORMAL) PT (9.9-12.6) secs INR (0.8-1.2) Sodium (135-145) mmol/L Potassium (3.5-5.0) mmol/L Chloride (101-111) mmol/L Carbon Dioxide (21-32) mmol/L Anion Gap (6-13) BUN (6-20) mg/dL Creatinine (0.6-1.2) mg/dL Estimated GFR (MDRD) (>89) Glucose (70-100) mg/dL Lactic Acid 2.1 (0.5-2.2) mmol/L Calcium (8.5-10.3) mg/dL Phosphorus (2.5-4.6) mg/dL Magnesium (1.7-2.8) mg/dL Total Bilirubin (0.2-1.0) mg/dL AST (10-42) IU/L ALT (10-60) IU/L Alkaline Phosphatase (42-121) IU/L Troponin I High Sens (2.3-19.7) pg/mL B-Natriuretic Peptide 354 H (5-100) pg/mL Total Protein (6.7-8.2) g/dL Albumin (3.2-5.5) g/dL Globulin (2.1-4.2) g/dL Albumin/Globulin Ratio (1.0-2.2) Lipase (22-51) U/L Urine Color YELLOW Urine Clarity CLEAR (CLEAR) Urine pH 7.5 (5.0-7.5) PH Ur Specific [place] 1.015 (1.002-1.030) Urine Protein NEGATIVE (NEGATIVE) mg/dL Urine Glucose (UA) NEGATIVE (NEGATIVE) mg/dL Urine Ketones TRACE (NEGATIVE) mg/dL Urine Occult Blood NEGATIVE (NEGATIVE) Urine Nitrite NEGATIVE (NEGATIVE) Urine Bilirubin NEGATIVE (NEGATIVE) Urine Urobilinogen 0.2 (NORMAL) (NORMAL) E.U./dL Ur Leukocyte Esterase NEGATIVE (NEGATIVE) Ur Microscopic Review NOT INDICATED Urine Culture Comments NOT INDICATED 01/24/19 01/24/19 01/24/19 Range/Units 16:57 16:57 16:57 WBC (4.8-10.8) x10^3/uL RBC (4.70-6.10) 10^6/uL Hgb (14.0-18.0) g/dL Hct (42.0-52.0) % MCV (80.0-94.0) fL MCH (27.0-31.0) pg MCHC (32.0-36.0) g/dL RDW (12.0-15.0) % Plt Count (130-450) 10^3/uL MPV (7.4-11.4) fL Neut # (Auto) (1.5-6.6) 10^3/uL Lymph # (Auto) (1.5-3.5) 10^3/uL [place] # (Auto) (0.0-1.0) 10^3/uL Eos # (Auto) (0.0-0.7) 10^3/uL Baso # (Auto) (0.0-0.1) 10^3/uL Absolute Nucleated RBC x10^3/uL Total Counted Band Neuts % (Manual) (0 - 10) % Abnorm Lymph % (Manual) % Nucleated RBC % /100WBC Neutrophils # (Manual) (1.5-6.6) 10^3/uL Lymphocytes # (Manual) (1.5-3.5) 10^3/uL Monocytes # (Manual) (0.0-1.0) 10^3/uL Eosinophils # (Manual) (0-0.7) 10^3/uL Basophils # (Manual) (0-0.1) 10^3/uL Differential Comment WBC Morphology (NORMAL) Platelet Estimate (NORMAL) Platelet Morphology (NORMAL) RBC Morph Micro Appear (NORMAL) PT 43.8 H (9.9-12.6) secs INR 3.9 H (0.8-1.2) Sodium 134 L (135-145) mmol/L Potassium 3.8 (3.5-5.0) mmol/L Chloride 99 L (101-111) mmol/L Carbon Dioxide 22 (21-32) mmol/L Anion Gap 13.0 (6-13) BUN 24 H (6-20) mg/dL Creatinine 1.0 (0.6-1.2) mg/dL Estimated GFR (MDRD) 72 L (>89) Glucose 148 H (70-100) mg/dL Lactic Acid (0.5-2.2) mmol/L Calcium 8.9 (8.5-10.3) mg/dL Phosphorus (2.5-4.6) mg/dL Magnesium (1.7-2.8) mg/dL Total Bilirubin 1.8 H (0.2-1.0) mg/dL AST 37 (10-42) IU/L ALT 39 (10-60) IU/L Alkaline Phosphatase 73 (42-121) IU/L Troponin I High Sens 14.1 (2.3-19.7) pg/mL B-Natriuretic Peptide (5-100) pg/mL Total Protein 6.4 L (6.7-8.2) g/dL Albumin 3.8 (3.2-5.5) g/dL Globulin 2.6 (2.1-4.2) g/dL Albumin/Globulin Ratio 1.5 (1.0-2.2) Lipase 30 (22-51) U/L Urine Color Urine Clarity (CLEAR) Urine pH (5.0-7.5) PH Ur Specific [place] (1.002-1.030) Urine Protein (NEGATIVE) mg/dL Urine Glucose (UA) (NEGATIVE) mg/dL Urine Ketones (NEGATIVE) mg/dL Urine Occult Blood (NEGATIVE) Urine Nitrite (NEGATIVE) Urine Bilirubin (NEGATIVE) Urine Urobilinogen (NORMAL) E.U./dL Ur Leukocyte Esterase (NEGATIVE) Ur Microscopic Review Urine Culture Comments 01/24/19 Range/Units 16:57 WBC 14.0 H (4.8-10.8) x10^3/uL RBC 4.05 L (4.70-6.10) 10^6/uL Hgb 13.5 L (14.0-18.0) g/dL Hct 38.6 L (42.0-52.0) % MCV 95.3 H (80.0-94.0) fL MCH 33.3 H (27.0-31.0) pg MCHC 35.0 (32.0-36.0) g/dL RDW 13.9 (12.0-15.0) % Plt Count 145 (130-450) 10^3/uL MPV 10.0 (7.4-11.4) fL Neut # (Auto) 12.6 H (1.5-6.6) 10^3/uL Lymph # (Auto) 0.5 L (1.5-3.5) 10^3/uL [place] # (Auto) 0.7 (0.0-1.0) 10^3/uL Eos # (Auto) 0.0 (0.0-0.7) 10^3/uL Baso # (Auto) 0.1 (0.0-0.1) 10^3/uL Absolute Nucleated RBC 0.00 x10^3/uL Total Counted Band Neuts % (Manual) (0 - 10) % Abnorm Lymph % (Manual) % Nucleated RBC % 0.0 /100WBC Neutrophils # (Manual) (1.5-6.6) 10^3/uL Lymphocytes # (Manual) (1.5-3.5) 10^3/uL Monocytes # (Manual) (0.0-1.0) 10^3/uL Eosinophils # (Manual) (0-0.7) 10^3/uL Basophils # (Manual) (0-0.1) 10^3/uL Differential Comment WBC Morphology (NORMAL) Platelet Estimate (NORMAL) Platelet Morphology (NORMAL) RBC Morph Micro Appear (NORMAL) PT (9.9-12.6) secs INR (0.8-1.2) Sodium (135-145) mmol/L Potassium (3.5-5.0) mmol/L Chloride (101-111) mmol/L Carbon Dioxide (21-32) mmol/L Anion Gap (6-13) BUN (6-20) mg/dL Creatinine (0.6-1.2) mg/dL Estimated GFR (MDRD) (>89) Glucose (70-100) mg/dL Lactic Acid (0.5-2.2) mmol/L Calcium (8.5-10.3) mg/dL Phosphorus (2.5-4.6) mg/dL Magnesium (1.7-2.8) mg/dL Total Bilirubin (0.2-1.0) mg/dL AST (10-42) IU/L ALT (10-60) IU/L Alkaline Phosphatase (42-121) IU/L Troponin I High Sens (2.3-19.7) pg/mL B-Natriuretic Peptide (5-100) pg/mL Total Protein (6.7-8.2) g/dL Albumin (3.2-5.5) g/dL Globulin (2.1-4.2) g/dL Albumin/Globulin Ratio (1.0-2.2) Lipase (22-51) U/L Urine Color Urine Clarity (CLEAR) Urine pH (5.0-7.5) PH Ur Specific [place] (1.002-1.030) Urine Protein (NEGATIVE) mg/dL Urine Glucose (UA) (NEGATIVE) mg/dL Urine Ketones (NEGATIVE) mg/dL Urine Occult Blood (NEGATIVE) Urine Nitrite (NEGATIVE) Urine Bilirubin (NEGATIVE) Urine Urobilinogen (NORMAL) E.U./dL Ur Leukocyte Esterase (NEGATIVE) Ur Microscopic Review Urine Culture Comments ABX Reporting Has patient been on IV antibiotics over the past 48 hours?: Yes Sepsis Event Note (H) - Evaluation Current Stage of Sepsis: Sepsis Possible source of Sepsis: positive: Pulmonary - Sepsis Criteria Sepsis Criteria: Recorded Respiratory Rate greater than 20, Respiratory: Increasing oxygen requirements, WBC count greater than 12,000 or less than 4000 Assessment/Plan - Problem List (1) Acute respiratory failure with hypoxia Impression: 01/25 clinic pt had great improved. pt had 100% sats on room air. but pt's WBC continue increased continue antibiotics treatment continue breath treatment PRN check sputum culture ECHO reveals 65% EF, but mild to moderate right abnormal pressure, RVSP 48 mmHG hold IVF of NS (2) Sepsis due to pneumonia Conclusion/Plan: 01/25 great improved. pt's BP is normative now, 100% sats on room air. but WBC continue increased. continue antibiotics followup blood culture continue lab and vital monitor (3) Atrial fibrillation Conclusion/Plan: 01/25 stable. since pt's BP is normal, reconcile pt's home metoprolol hold Coumadin, daily PT/INR test continue tele and vital monitor (4) Hyponatremia Conclusion/Plan: 01/25 resolved. (5) Supratherapeutic INR Conclusion/Plan: 01/25 pt's INR was still 3.4, pt is on antibiotics hold Coumadin today, continue PT/INR test (6) BPH (benign prostatic hyperplasia) Conclusion/Plan: Resume home medications (7) ANISH on CPAP Conclusion/Plan: Stable, Continue home CPAP (8) Hyperlipidemia Conclusion/Plan: Stable. Resume Statin
[2019-01-25] MEDS: AZITHROMYCIN INJ 500 MG in SODIUM CHLORIDE 0.9% 250 ML IV SCH (17:03)
[2019-01-25] MEDS: cefTRIAXone 1 GM in SODIUM CHLORIDE 0.9% MINIBAG 100 ML IV SCH (19:14)
[2019-01-25] MEDS: BENZONATATE 100 MG CAPSULE PO PRN (21:04)
[2019-01-25] MEDS: ATORVASTATIN 40 MG TABLET PO SCH (21:04)
[2019-01-25] MEDS: TAMSULOSIN 0.4 MG CAPSULE PO SCH (21:05)
[2019-01-25] MEDS: FINASTERIDE 5 MG TABLET PO SCH (21:05)
[2019-01-25] MEDS: METOPROLOL SUCCINATE 50 MG TABLET PO SCH (21:05)
[2019-01-25] MEDS: LORATADINE 10 MG TABLET PO SCH (21:09)
[2019-01-25] MEDS: ZOLPIDEM 5 MG TABLET PO PRN (22:33)
[2019-01-26] MEDS: traMADol 50 MG TABLET PO PRN (04:34)
[2019-01-26] MEDS: guaiFENesin 100 MG/5 ML UDC PO PRN ×2 (04:34→16:42)
[2019-01-26 05:12] LABS: BASOPHILS % (AUTO) 0.3 %; EOSINOPHILS # (AUTO) 0.1 10^3/uL (0.0-0.7); EOSINOPHILS % (AUTO) 0.5 %; HGB - HEMOGLOBIN 11.4 g/dL (14.0-18.0); LYMPHOCYTES # (AUTO) 0.9 10^3/uL (1.5-3.5); LYMPHOCYTES % (AUTO) 8.7 %; MEAN CORPUSCULAR HEMOGLOBIN 33.1 pg (27.0-31.0); MEAN CORPUSCULAR HGB CONC 33.9 g/dL (32.0-36.0); MEAN CORPUSCULAR VOLUME 97.7 fL (80.0-94.0); MEAN PLATELET VOLUME 10.9 fL (7.4-11.4); MONOCYTES # (AUTO) 0.8 10^3/uL (0.0-1.0); MONOCYTES % (AUTO) 7.8 %; NEUTROPHILS # (AUTO) 8.3 10^3/uL (1.5-6.6); PLT - PLATELET COUNT 112 10^3/uL (130-450); RED BLOOD COUNT 3.44 10^6/uL (4.70-6.10); RED CELL DISTRIBUTION WIDTH 14.5 % (12.0-15.0); WHITE BLOOD COUNT 10.1 x10^3/uL (4.8-10.8)
[2019-01-26 05:20] LABS: CALCIUM 8.4 mg/dL (8.5-10.3); CREATININE 0.9 mg/dL (0.6-1.2); MAGNESIUM 1.8 mg/dL (1.7-2.8)
[2019-01-26 05:30] LABS: INR 2.5 (0.8-1.2); PT - PROTHROMBIN TIME 27.7 secs (9.9-12.6)
[2019-01-26] MEDS: METOPROLOL SUCCINATE 25 MG TABLET PO SCH (08:53)
[2019-01-26] MEDS: MAGNESIUM OXIDE 400 MG TABLET PO SCH (08:53)
[2019-01-26] MEDS: POLYETHYLENE GLYCOL 3350 17 GM PACKET PO SCH (08:53)
[2019-01-26] MEDS: SODIUM CHLORIDE FLUSH 0.9% 10 ML SYRINGE IVP SCH ×3 (08:53→23:49)
[2019-01-26] MEDS ORDERED: WARFARIN 2.5 MG TABLET PO SCH (14:00)
--- NOTE | 2019-01-26 15:12 | PROVIDER PROGRESS NOTE ---
Subjective - Prog Note Date Prog Note Date: 01/26/19 - Subjective Pt reports feeling: Improved Subjective: pt report he still strong cough with bloody stain on the sputum. pt report he is previous smoker, wish to have CT image study of his chest. pt denies chest pain, fever, chill. Current Medications - Current Medications Current Medications: Active Medications Acetaminophen (Tylenol) 650 mg PO Q6HR PRN PRN Reason: Pain 1 to 4 Albuterol () 2.5 mg INH RTQ4H PRN PRN Reason: Wheezing Albuterol/Ipratropium (Duoneb) 3 ml INH Q4HR PRN PRN Reason: Wheezing Atorvastatin Calcium (Lipitor) 20 mg PO QPM [facility] Last Admin: 01/25/19 21:04 Dose: 20 mg Benzonatate (Tessalon) 100 mg PO TID PRN PRN Reason: Cough Last Admin: 01/25/19 21:04 Dose: 100 mg Finasteride (Proscar) 5 mg PO QPM [facility] Last Admin: 01/25/19 21:05 Dose: 5 mg Guaifenesin (Robitussin Liquid) 100 mg PO Q6HR PRN PRN Reason: Cough Last Admin: 01/26/19 04:34 Dose: 100 mg Azithromycin 500 mg/ Sodium (Chloride) 250 mls @ 250 mls/hr IV Q24H [facility] Last Infusion: 01/25/19 18:03 Dose: Infused Ceftriaxone Sodium 1 gm/ (Sodium Chloride) 100 mls @ 200 mls/hr IV Q24H [facility] Last Infusion: 01/25/19 19:44 Dose: Infused Loratadine (Claritin) 10 mg PO QPM [facility] Last Admin: 01/25/19 21:09 Dose: 10 mg Magnesium Oxide (Mag Ox) 400 mg PO DAILYWM [facility] Last Admin: 01/26/19 08:53 Dose: 400 mg Metoprolol Succinate (Toprol Xl) 25 mg PO DAILY [facility] Last Admin: 01/26/19 08:53 Dose: 25 mg Metoprolol Succinate (Toprol Xl) 50 mg PO QPM [facility] Last Admin: 01/25/19 21:05 Dose: 50 mg Ondansetron HCl (Zofran Inj) 4 mg IVP Q6HR PRN PRN Reason: Nausea / Vomiting Polyethylene Glycol (Miralax) 17 gm PO DAILY [facility] Last Admin: 01/26/19 08:53 Dose: 17 gm Sodium Chloride (Normal Saline Flush 0.9%) 10 ml IVP PRN PRN PRN Reason: NEEDED PER PROVIDER ORDERS Sodium Chloride (Normal Saline Flush 0.9%) 10 ml IVP 0100,0900,1700 [facility] Last Admin: 01/26/19 08:53 Dose: 10 ml Tamsulosin HCl (Flomax) 0.4 mg PO QPM [facility] Last Admin: 01/25/19 21:05 Dose: 0.4 mg Tramadol HCl (Ultram) 50 mg PO Q6H PRN PRN Reason: PAIN Last Admin: 01/26/19 04:34 Dose: 50 mg Warfarin Sodium (Coumadin) 2.5 mg PO QDWARFARIN [facility] Warfarin Sodium (Coumadin) 5 mg PO QDWARFARIN [facility] Zolpidem Tartrate (Ambien) 5 mg PO QPM PRN PRN Reason: Insomnia Last Admin: 01/25/19 22:33 Dose: 5 mg Atorvastatin [Lipitor] 20 mg PO DAILY PM 10/12/18 Finasteride 5 mg PO DAILY PM 10/12/18 Ipratropium [Atrovent] 2 puffs INH TID 10/12/18 Loratadine 10 mg PO DAILY PM 10/12/18 Magnesium 500 mg PO DAILY PM 10/12/18 Metoprolol Succinate [Kapspargo Sprinkle] 25 mg PO DAILY 10/12/18 Tamsulosin [Flomax] 0.4 mg PO DAILY PM 10/12/18 Warfarin [Coumadin] 5 mg PO QDWARFARIN 10/12/18 traMADol [Ultram] 50 mg PO PRN PRN 10/12/18 Acetaminophen [Acetaminophen ER] 650 mg PO PRN PRN 01/24/19 Metoprolol Succinate [Toprol Xl] 50 mg PO DAILY PM 01/24/19 Warfarin [Coumadin] 2.5 mg PO QDWARFARIN 01/24/19 Objective - Vital Signs/Intake & Output Reviewed Vital Signs: Yes Vital Signs: Vital Signs x48h Temp Pulse Resp BP Pulse Ox 01/26/19 13:00 37.1 C 74 17 130/76 98 01/26/19 09:00 37.1 C 70 19 125/70 91 L Intake & Output: Intake & Output 01/23/19 01/24/19 01/25/19 09/05/19 23:59 23:59 23:59 23:59 Intake Total 1450 2253.333 0 Output Total 1970 1025 Balance 1450 283.333 -1025 - Objective General Appearance: positive: No acute distress, Alert. negative: Lethargic Eyes Bilateral: positive: Normal inspection, PERRL, No lid inflammation, Conjunctivae nml ENT: positive: ENT inspection nml, Pharynx nml, No signs of dehydration. negative: Purulent nasal drainage, Pharyngeal erythema, Oral lesions Neck: positive: Nml inspection, Thyroid nml, No JVD, Trachea midline. negative: Thyromegaly, Lymphadenopathy (R), Lymphadenopathy (L), Stiff neck, Swe lling/bruising, Tracheal deviation Respiratory: positive: Chest non-tender, No respiratory distress. negative: Wheezes, Rales, Rhonchi Cardiovascular: positive: Regular rate & rhythm, No murmur, No gallop. negative: Irregularly irregular, Extrasystoles, Tachycardia, Bradycardia, JVD present, Systolic murmur, Diastolic murmur Peripheral Pulses: 2+ Radial (R), 2+ Radial (L), 2+ Dorsalis pedis (R), 2+ Dorsalis pedis (L) Abdomen: positive: Non-tender, No organomegaly, Nml bowel sounds, No distention. negative: Tenderness, Guarding, Rebound Back: positive: Nml inspection. negative: CVA tenderness (R), CVA tenderness (L) Skin: positive: Color nml, No rash, Warm, Dry. negative: Cyanosis, Diaphoresis, Pallor Extremities: positive: Non-tender, Full ROM, Nml appearance. negative: Calf tenderness, Joint swelling, Wenceslao's sign/cords Neurologic/Psychiatric: positive: Oriented x3, Motor nml, Sensation nml, Mood/affect nml. negative: Weakness, Sensory loss, Facial droop, Slurred/abnml speech, Depressed mood/affect - Lab Results Fish Bones: 01/26/19 04:55 01/26/19 04:55 Other Labs: Lab Results x24hrs 01/26/19 01/26/19 01/26/19 Range/Units 04:55 04:55 04:55 WBC (4.8-10.8) x10^3/uL RBC (4.70-6.10) 10^6/uL Hgb (14.0-18.0) g/dL Hct (42.0-52.0) % MCV (80.0-94.0) fL MCH (27.0-31.0) pg MCHC (32.0-36.0) g/dL RDW (12.0-15.0) % Plt Count (130-450) 10^3/uL MPV (7.4-11.4) fL Neut # (Auto) (1.5-6.6) 10^3/uL Lymph # (Auto) (1.5-3.5) 10^3/uL [place] # (Auto) (0.0-1.0) 10^3/uL Eos # (Auto) (0.0-0.7) 10^3/uL Baso # (Auto) (0.0-0.1) 10^3/uL Absolute Nucleated RBC x10^3/uL Nucleated RBC % /100WBC PT 27.7 H (9.9-12.6) secs INR 2.5 H (0.8-1.2) Sodium 134 L (135-145) mmol/L Potassium 4.0 (3.5-5.0) mmol/L Chloride 101 (101-111) mmol/L Carbon Dioxide 26 (21-32) mmol/L Anion Gap 7.0 (6-13) BUN 17 (6-20) mg/dL Creatinine 0.9 (0.6-1.2) mg/dL Estimated GFR (MDRD) 81 L (>89) Glucose 122 H (70-100) mg/dL Calcium 8.4 L (8.5-10.3) mg/dL Phosphorus 2.0 L (2.5-4.6) mg/dL Magnesium 1.8 (1.7-2.8) mg/dL B-Natriuretic Peptide 287 H (5-100) pg/mL 01/26/19 Range/Units 04:55 WBC 10.1 (4.8-10.8) x10^3/uL RBC 3.44 L (4.70-6.10) 10^6/uL Hgb 11.4 L (14.0-18.0) g/dL Hct 33.6 L (42.0-52.0) % MCV 97.7 H (80.0-94.0) fL MCH 33.1 H (27.0-31.0) pg MCHC 33.9 (32.0-36.0) g/dL RDW 14.5 (12.0-15.0) % Plt Count 112 L (130-450) 10^3/uL MPV 10.9 (7.4-11.4) fL Neut # (Auto) 8.3 H (1.5-6.6) 10^3/uL Lymph # (Auto) 0.9 L (1.5-3.5) 10^3/uL [place] # (Auto) 0.8 (0.0-1.0) 10^3/uL Eos # (Auto) 0.1 (0.0-0.7) 10^3/uL Baso # (Auto) 0.0 (0.0-0.1) 10^3/uL Absolute Nucleated RBC 0.00 x10^3/uL Nucleated RBC % 0.0 /100WBC PT (9.9-12.6) secs INR (0.8-1.2) Sodium (135-145) mmol/L Potassium (3.5-5.0) mmol/L Chloride (101-111) mmol/L Carbon Dioxide (21-32) mmol/L Anion Gap (6-13) BUN (6-20) mg/dL Creatinine (0.6-1.2) mg/dL Estimated GFR (MDRD) (>89) Glucose (70-100) mg/dL Calcium (8.5-10.3) mg/dL Phosphorus (2.5-4.6) mg/dL Magnesium (1.7-2.8) mg/dL B-Natriuretic Peptide (5-100) pg/mL ABX Reporting Has patient been on IV antibiotics over the past 48 hours?: Yes Sepsis Event Note (H) - Evaluation Current Stage of Sepsis: Sepsis Possible source of Sepsis: positive: Pulmonary - Sepsis Criteria Sepsis Criteria: Recorded Respiratory Rate greater than 20, Respiratory: Increasing oxygen requirements, WBC count greater than 12,000 or less than 4000 Assessment/Plan - Problem List (1) Acute respiratory failure with hypoxia Impression: 01/26 improved. 98% sats on room air. WBC is 10.1 continue antibiotics 01/25 clinic pt had great improved. pt had 100% sats on room air. but pt's WBC continue increased continue antibiotics treatment continue breath treatment PRN check sputum culture ECHO reveals 65% EF, but mild to moderate right abnormal pressure, RVSP 48 mmHG hold IVF of NS (2) Sepsis due to pneumonia Conclusion/Plan: 01/26 resolved. BP is normative 01/25 great improved. pt's BP is normative now, 100% sats on room air. but WBC continue increased. continue antibiotics followup blood culture continue lab and vital monitor (3) Atrial fibrillation Conclusion/Plan: 01/26 INR is 2.5 now, hold Coumadin today. pt report he had bloody stained sputum continue PT/INR check 01/25 stable. since pt's BP is normal, reconcile pt's home metoprolol hold Coumadin, daily PT/INR test continue tele and vital monitor (4) Hyponatremia Conclusion/Plan: 01/25 resolved. (5) Supratherapeutic INR Conclusion/Plan: 01/25 pt's INR was still 3.4, pt is on antibiotics hold Coumadin today, continue PT/INR test (6) BPH (benign prostatic hyperplasia) Conclusion/Plan: Resume home medications (7) ANISH on CPAP Conclusion/Plan: Stable, Continue home CPAP (8) Hyperlipidemia Conclusion/Plan: Stable. Resume Statin (9) cough with bloody stained sputum 01/26 will do CTA scan for pt, unfortunately CTA is not working today, will order for tomorrow. HGB is stable now. pt has hx of cigarette smoker hold Coumadin sputum culture
[2019-01-26] MEDS: BENZONATATE 100 MG CAPSULE PO PRN (16:42)
[2019-01-26] MEDS ORDERED: SODIUM CHLORIDE 0.9% 1,000 ML IV SCH (17:00)
[2019-01-26] MEDS: AZITHROMYCIN INJ 500 MG in SODIUM CHLORIDE 0.9% 250 ML IV SCH (18:01)
--- NOTE | 2019-01-26 18:05 | XRAY Report ---
Reason: fever Procedure Date: 01/26/2019 Accession Number: [id number] / [id number] Procedure: XR - Chest 1 View X-Ray CPT Code: 82284 FULL RESULT: EXAM: CHEST RADIOGRAPHY. EXAM DATE: 01/26/2019 04:54 PM. CLINICAL HISTORY: Fever. COMPARISON: CHEST 2 VIEW 01/24/2019 5:29 PM. TECHNIQUE: 1 view. FINDINGS: Lungs/Pleura: Perihilar and infrahilar haziness, right worse than left. No peripheral opacities evident. No pleural effusion. No pneumothorax. Mediastinum: Large heart. Other: Stable dual-lead left pacemaker. IMPRESSION: Cardiomegaly with perihilar and infrahilar haziness concerning for pulmonary edema, pneumonia less likely. [facility]
[2019-01-26] MEDS: cefTRIAXone 1 GM in SODIUM CHLORIDE 0.9% MINIBAG 100 ML IV SCH (19:19)
[2019-01-26] MEDS: FINASTERIDE 5 MG TABLET PO SCH (20:35)
[2019-01-26] MEDS: TAMSULOSIN 0.4 MG CAPSULE PO SCH (20:35)
[2019-01-26] MEDS: METOPROLOL SUCCINATE 50 MG TABLET PO SCH (20:36)
[2019-01-26] MEDS: ATORVASTATIN 40 MG TABLET PO SCH (20:36)
[2019-01-26] MEDS: LORATADINE 10 MG TABLET PO SCH (20:36)
[2019-01-27] MEDS: traMADol 50 MG TABLET PO PRN (00:17)
[2019-01-27] MEDS: guaiFENesin 100 MG/5 ML UDC PO PRN (00:17)
[2019-01-27 05:29] LABS: BASOPHILS % (AUTO) 0.4 %; EOSINOPHILS # (AUTO) 0.1 10^3/uL (0.0-0.7); EOSINOPHILS % (AUTO) 1.7 %; HGB - HEMOGLOBIN 10.6 g/dL (14.0-18.0); LYMPHOCYTES # (AUTO) 0.9 10^3/uL (1.5-3.5); LYMPHOCYTES % (AUTO) 12.3 %; MEAN CORPUSCULAR HEMOGLOBIN 33.1 pg (27.0-31.0); MEAN CORPUSCULAR HGB CONC 34.2 g/dL (32.0-36.0); MEAN CORPUSCULAR VOLUME 96.9 fL (80.0-94.0); MEAN PLATELET VOLUME 10.3 fL (7.4-11.4); MONOCYTES # (AUTO) 0.7 10^3/uL (0.0-1.0); MONOCYTES % (AUTO) 9.1 %; NEUTROPHILS # (AUTO) 5.7 10^3/uL (1.5-6.6); NEUTROPHILS % (AUTO) 75.7 %; PLT - PLATELET COUNT 121 10^3/uL (130-450); RED CELL DISTRIBUTION WIDTH 13.9 % (12.0-15.0); WHITE BLOOD COUNT 7.5 x10^3/uL (4.8-10.8)
[2019-01-27 05:39] LABS: INR 1.7 (0.8-1.2); PT - PROTHROMBIN TIME 19.6 secs (9.9-12.6)
[2019-01-27 05:40] LABS: CALCIUM 8.1 mg/dL (8.5-10.3); CREATININE 0.8 mg/dL (0.6-1.2); MAGNESIUM 1.8 mg/dL (1.7-2.8); PHOSPHORUS 2.6 mg/dL (2.5-4.6)
[2019-01-27] MEDS ORDERED: IOVERSOL 320 100 ML VIAL IVP ONE ×2 (07:50→10:18)
[2019-01-27] MEDS: POLYETHYLENE GLYCOL 3350 17 GM PACKET PO SCH (08:24)
[2019-01-27] MEDS: METOPROLOL SUCCINATE 25 MG TABLET PO SCH (08:24)
[2019-01-27] MEDS: MAGNESIUM OXIDE 400 MG TABLET PO SCH (08:24)
[2019-01-27] MEDS: SODIUM CHLORIDE FLUSH 0.9% 10 ML SYRINGE IVP SCH ×3 (08:25→23:42)
[2019-01-27] MEDS ORDERED: FUROSEMIDE 20 MG TABLET PO SCH (09:00)
--- NOTE | 2019-01-27 09:03 | CT Report ---
Reason: cough with bloody stain Procedure Date: 01/27/2019 Accession Number: [id number] / [id number] Procedure: CT - ANGIO CHEST W/WO CPT Code: FULL RESULT: EXAM: CT ANGIOGRAM CHEST EXAM DATE: 01/27/2019 08:26 AM. CLINICAL HISTORY: Cough with bloody stain. COMPARISON: None. TECHNIQUE: Routine helical imaging was performed through the chest in the pulmonary arterial phase. IV Contrast: Opti-320 80 mL. Reconstructions: Coronal 3-D MIP reconstructions.Sagittal and coronal. In accordance with CT protocol optimization, one or more of the following dose reduction techniques were utilized for this exam: automated exposure control, adjustment of mA and/or KV based on patient size, or use of iterative reconstructive technique. FINDINGS: Pulmonary Arteries: Diagnostic quality: Adequate through the segmental arteries. No evidence for acute or chronic pulmonary emboli. Lungs/Pleura: Small layering lateral pleural effusions. Extensive left lower lobe consolidation. Bilateral interstitial thickening. 2 adjacent versus 1 lobulated region of consolidation posterior right lower lobe measures 3 x 1.2 cm on series 5 image 77. A similar area of consolidation within the posterior right upper lobe measures 1.6 x 1.2 cm on series 5 image 68. Elongated consolidation within posterior aspect lateral right middle of series 5 image 79 corresponding to sagittal image 140. Mediastinum: Cardiomegaly with cardiothoracic ratio 15.5/26.3. Extensive LAD and circumflex with internal calcifications. Mediastinal adenopathy with left lower paratracheal lymph node measuring 1.2 cm short axis. Increased number of mediastinal lymph nodes. Shotty bilateral hilar lymph nodes. Thoracic Aorta: Unremarkable. Upper Abdomen: Partial fatty replacement of visualized pancreatic tail and body. Nodular liver contour. Small calcific density along gallbladder and adjacent to the right liver lobe. Other: Thoracic spine DISH. IMPRESSION: 1. No pulmonary emboli. 2. Congestive heart failure with small layering bilateral pleural effusions and interstitial edema. 3. Multiple areas of consolidation, most pronounced within left lower lobe. Nodular regions of consolidation within posterior right lower lobe, lateral right middle lobe and posterior right upper lobe. Mediastinal adenopathy. Question pneumonia. Cannot exclude neoplasm. Recommend follow-up. 4. Cirrhotic liver morphology with nodular contour. Recommend clinical correlation. 5. Small calcification along the gallbladder and adjacent liver. Question liver parenchymal calcification/granuloma or gallstone. RADIA
[2019-01-27] MEDS: AZITHROMYCIN 250 MG TABLET PO SCH (10:35)
--- NOTE | 2019-01-27 12:33 | Discharge Plan ---
Discharge Plan Problem Reviewed?: Yes Disposition: Home, Self Care Condition: Poor Prescriptions: Benzonatate [Tessalon] 100 mg PO TID PRN #15 capsule PRN Reason: Cough cefUROXime axetil [Ceftin] 500 mg PO Q12H #14 tablet Diet: Regular Activity Restrictions: Activity as Tolerated Shower Restrictions: No (fall precaution) Instruction Topics: Cefuroxime tablets, ED Cough Chronic Cause Unkn Ch, Pneumonia Health Concerns: chronic cough with consolidations and mediastinal adenopathy. Plan of Treatment: your report you had chronic cough for over three years. you have CTA of your chest study on today. Discuss the result of CTA and care plan with your . advise you followup business rules analyst closely. You are prescribed Ceftin antibiotic to finish the treatment course. Care Goals: stabilization and improvement of your medical conditions Assessment: assessment as the above discussion. Additional Instructions or Follow Up instructions: you may followup your PCP in one week, and recheck your PT/INR. You may followup your business rules analyst as out-pt. Should your symptoms return or worsen, you may present ER or call 911 for help. No Smoking: If you smoke, Please STOP! Call for help. Follow-up with: GERMANIA TAVERA MD [Primary Care Provider] -
--- NOTE | 2019-01-27 12:50 | DISCHARGE SUMMARY ---
Discharge Summary Discharge Date: 01/27/19 Discharging Provider: SCOTT Primary Care Provider: Dr. Lr Condition at Discharge: Poor Discharge Disposition: 01 Home, Self Care Discharge Facility Name: home - ALLERGIES Allergies/Adverse Reactions: Allergies Allergy/AdvReac Type Severity Reaction Status Date / Time No Known Drug Allergies Allergy Verified 01/24/19 17:02 - MEDICATIONS Home Medications: Ambulatory Orders Medication Instructions Recorded Confirmed Albuterol Sulfate [Proventil Hfa 1 - 2 puffs IH Q4H PRN #1 05/30/17 01/25/19 Inhaler] [email or web address] Atorvastatin [Lipitor] 20 mg PO DAILY PM 10/12/18 01/24/19 Finasteride 5 mg PO DAILY PM 10/12/18 01/24/19 Ipratropium [Atrovent] 2 puffs INH TID 10/12/18 01/24/19 Loratadine 10 mg PO DAILY PM 10/12/18 01/24/19 Magnesium 500 mg PO DAILY PM 10/12/18 01/24/19 Metoprolol Succinate [Kapspargo 25 mg PO DAILY 10/12/18 01/24/19 Sprinkle] Tamsulosin [Flomax] 0.4 mg PO DAILY PM 10/12/18 01/24/19 Warfarin [Coumadin] 5 mg PO QDWARFARIN 10/12/18 01/24/19 traMADol [Ultram] 50 mg PO PRN PRN 10/12/18 01/24/19 Acetaminophen [Acetaminophen ER] 650 mg PO PRN PRN 01/24/19 01/24/19 Metoprolol Succinate [Toprol Xl] 50 mg PO DAILY PM 01/24/19 01/24/19 Warfarin [Coumadin] 2.5 mg PO QDWARFARIN 01/24/19 01/24/19 Benzonatate [Tessalon] 100 mg PO TID PRN #15 capsule 01/27/19 cefUROXime axetil [Ceftin] 500 mg PO Q12H #14 tablet 01/27/19 - LABS Result Diagrams: 01/27/19 05:00 01/27/19 05:00 - SEPSIS Current Stage of Sepsis: Sepsis Possible source of Sepsis: Pulmonary Sepsis Criteria: Recorded Respiratory Rate greater than 20, Respiratory: Increasing oxygen requirements, WBC count greater than 12,000 or less than 4000
[2019-01-27] MEDS ORDERED: WARFARIN 5 MG TABLET PO SCH (14:00)
--- NOTE | 2019-01-27 16:42 | PROVIDER PROGRESS NOTE ---
Subjective - Prog Note Date Prog Note Date: 01/27/19 - Subjective Pt reports feeling: Improved Subjective: pt report he still had bloody stain sputum and has persistent cough. pt's report pt had over three years chronic cough from . CTA of chest today reveals multiple areas of consolidation, mediastinal adenopathy, question pneumonia, can not exclude neoplasm, recommend followup. Pt had heat treating operator in [facility]. I called [facility], Dr. Hicks, she was on the call. She recommended pt followup her on next week. her office will call pt on next Wednesday01/30/19, also she gave pt her office phone number for communication. Plan: continue treat pt's pneumonia today, d/c pt on tomorrow with oral antibiotics and followup Dr Hicks on her office in next week. pt's BNP increased. CTA reveals CHF, small pleural effusion and interstitial edema Current Medications - Current Medications Current Medications: Active Medications Acetaminophen (Tylenol) 650 mg PO Q6HR PRN PRN Reason: Pain 1 to 4 Albuterol () 2.5 mg INH RTQ4H PRN PRN Reason: Wheezing Albuterol/Ipratropium (Duoneb) 3 ml INH Q4HR PRN PRN Reason: Wheezing Atorvastatin Calcium (Lipitor) 20 mg PO QPM [facility] Last Admin: 01/26/19 20:36 Dose: 20 mg Azithromycin (Zithromax) 250 mg PO DAILY [facility] Last Admin: 01/27/19 10:35 Dose: 250 mg Benzonatate (Tessalon) 100 mg PO TID PRN PRN Reason: Cough Last Admin: 01/26/19 16:42 Dose: 100 mg Docusate Sodium (Colace 250mg Capsule) 250 - 500 mg PO DAILY [facility] Finasteride (Proscar) 5 mg PO QPM [facility] Last Admin: 01/26/19 20:35 Dose: 5 mg Furosemide (Lasix) 20 mg PO BIDDIURETIC [facility] Guaifenesin (Robitussin Liquid) 100 mg PO Q6HR PRN PRN Reason: Cough Last Admin: 01/27/19 00:17 Dose: 100 mg Ceftriaxone Sodium 1 gm/ (Sodium Chloride) 100 mls @ 200 mls/hr IV Q24H [facility] Last Infusion: 01/26/19 19:50 Dose: Infused Loratadine (Claritin) 10 mg PO QPM [facility] Last Admin: 01/26/19 20:36 Dose: 10 mg Magnesium Oxide (Mag Ox) 400 mg PO DAILYWM [facility] Last Admin: 01/27/19 08:24 Dose: 400 mg Metoprolol Succinate (Toprol Xl) 25 mg PO DAILY [facility] Last Admin: 01/27/19 08:24 Dose: 25 mg Metoprolol Succinate (Toprol Xl) 50 mg PO QPM [facility] Last Admin: 01/26/19 20:36 Dose: 50 mg Ondansetron HCl (Zofran Inj) 4 mg IVP Q6HR PRN PRN Reason: Nausea / Vomiting Polyethylene Glycol (Miralax) 17 gm PO DAILY [facility] Last Admin: 01/27/19 08:24 Dose: 17 gm Senna (Senokot) 8.6 - 17.2 mg PO DAILY [facility] Sodium Chloride (Normal Saline Flush 0.9%) 10 ml IVP PRN PRN PRN Reason: NEEDED PER PROVIDER ORDERS Sodium Chloride (Normal Saline Flush 0.9%) 10 ml IVP 0100,0900,1700 [facility] Last Admin: 01/27/19 08:25 Dose: 10 ml Tamsulosin HCl (Flomax) 0.4 mg PO QPM [facility] Last Admin: 01/26/19 20:35 Dose: 0.4 mg Tramadol HCl (Ultram) 50 mg PO Q6H PRN PRN Reason: PAIN Last Admin: 01/27/19 00:17 Dose: 50 mg Zolpidem Tartrate (Ambien) 5 mg PO QPM PRN PRN Reason: Insomnia Last Admin: 01/25/19 22:33 Dose: 5 mg Atorvastatin [Lipitor] 20 mg PO DAILY PM 10/12/18 Finasteride 5 mg PO DAILY PM 10/12/18 Ipratropium [Atrovent] 2 puffs INH TID 10/12/18 Loratadine 10 mg PO DAILY PM 10/12/18 Magnesium 500 mg PO DAILY PM 10/12/18 Metoprolol Succinate [Kapspargo Sprinkle] 25 mg PO DAILY 10/12/18 Tamsulosin [Flomax] 0.4 mg PO DAILY PM 10/12/18 Warfarin [Coumadin] 5 mg PO QDWARFARIN 10/12/18 traMADol [Ultram] 50 mg PO PRN PRN 10/12/18 Acetaminophen [Acetaminophen ER] 650 mg PO PRN PRN 01/24/19 Metoprolol Succinate [Toprol Xl] 50 mg PO DAILY PM 01/24/19 Warfarin [Coumadin] 2.5 mg PO QDWARFARIN 01/24/19 Objective - Vital Signs/Intake & Output Reviewed Vital Signs: Yes Vital Signs: Vital Signs x48h Temp Pulse Resp BP Pulse Ox 01/27/19 15:58 37.4 C 74 20 110/69 97 01/27/19 11:52 36.6 C 71 18 120/79 98 Intake & Output: Intake & Output 01/24/19 01/25/19 01/26/19 01/27/19 23:59 23:59 23:59 23:59 Intake Total 1450 2253.333 750 340 Output Total 1970 1325 1550 Balance 1450 283.333 -752 -1210 - Objective General Appearance: positive: No acute distress, Alert. negative: Lethargic Eyes Bilateral: positive: Normal inspection, PERRL, No lid inflammation, Conjunctivae nml ENT: positive: ENT inspection nml, Pharynx nml, No signs of dehydration. negative: Purulent nasal drainage, Pharyngeal erythema, Oral lesions Neck: positive: Nml inspection, Thyroid nml, No JVD, Trachea midline. negative: Thyromegaly, Lymphadenopathy (R), Lymphadenopathy (L), Stiff neck, Swel ling/bruising, Tracheal deviation Respiratory: positive: Chest non-tender, No respiratory distress. negative: Wheezes, Rales, Rhonchi Cardiovascular: positive: Regular rate & rhythm, No murmur, No gallop. negative: Irregularly irregular, Extrasystoles, Tachycardia, Bradycardia, JVD present, Systolic murmur, Diastolic murmur Peripheral Pulses: 2+ Radial (R), 2+ Radial (L), 2+ Dorsalis pedis (R), 2+ Dorsalis pedis (L) Abdomen: positive: Non-tender, No organomegaly, Nml bowel sounds, No distention. negative: Tenderness, Guarding, Rebound Back: positive: Nml inspection. negative: CVA tenderness (R), CVA tenderness (L) Skin: positive: Color nml, No rash, Warm, Dry. negative: Cyanosis, Diaphoresis, Pallor Extremities: positive: Non-tender, Full ROM, Nml appearance. negative: Calf tenderness, Joint swelling, Wenceslao's sign/cords Neurologic/Psychiatric: positive: Oriented x3, Sensation nml, Mood/affect nml. negative: Weakness, Sensory loss, Facial droop, Slurred/abnml speech, Depressed mood/affect - Lab Results Fish Bones: 01/27/19 05:00 01/27/19 05:00 Other Labs: Lab Results x24hrs 01/27/19 01/27/19 01/27/19 Range/Units 15:07 05:00 05:00 WBC (4.8-10.8) x10^3/uL RBC (4.70-6.10) 10^6/uL Hgb (14.0-18.0) g/dL Hct (42.0-52.0) % MCV (80.0-94.0) fL MCH (27.0-31.0) pg MCHC (32.0-36.0) g/dL RDW (12.0-15.0) % Plt Count (130-450) 10^3/uL MPV (7.4-11.4) fL Neut # (Auto) (1.5-6.6) 10^3/uL Lymph # (Auto) (1.5-3.5) 10^3/uL Yell # (Auto) (0.0-1.0) 10^3/uL Eos # (Auto) (0.0-0.7) 10^3/uL Baso # (Auto) (0.0-0.1) 10^3/uL Absolute Nucleated RBC x10^3/uL Nucleated RBC % /100WBC PT (9.9-12.6) secs INR (0.8-1.2) Sodium 134 L (135-145) mmol/L Potassium 4.2 (3.5-5.0) mmol/L Chloride 102 (101-111) mmol/L Carbon Dioxide 26 (21-32) mmol/L Anion Gap 6.0 (6-13) BUN 17 (6-20) mg/dL Creatinine 0.8 (0.6-1.2) mg/dL Estimated GFR (MDRD) 93 (>89) Glucose 110 H (70-100) mg/dL Lactic Acid (0.5-2.2) mmol/L Calcium 8.1 L (8.5-10.3) mg/dL Phosphorus 2.6 (2.5-4.6) mg/dL Magnesium 1.8 (1.7-2.8) mg/dL B-Natriuretic Peptide 413 H 398 H (5-100) pg/mL 01/27/19 01/27/19 01/26/19 Range/Units 05:00 05:00 17:00 WBC 7.5 (4.8-10.8) x10^3/uL RBC 3.20 L (4.70-6.10) 10^6/uL Hgb 10.6 L (14.0-18.0) g/dL Hct 31.0 L (42.0-52.0) % MCV 96.9 H (80.0-94.0) fL MCH 33.1 H (27.0-31.0) pg MCHC 34.2 (32.0-36.0) g/dL RDW 13.9 (12.0-15.0) % Plt Count 121 L (130-450) 10^3/uL MPV 10.3 (7.4-11.4) fL Neut # (Auto) 5.7 (1.5-6.6) 10^3/uL Lymph # (Auto) 0.9 L (1.5-3.5) 10^3/uL Yell # (Auto) 0.7 (0.0-1.0) 10^3/uL Eos # (Auto) 0.1 (0.0-0.7) 10^3/uL Baso # (Auto) 0.0 (0.0-0.1) 10^3/uL Absolute Nucleated RBC 0.00 x10^3/uL Nucleated RBC % 0.0 /100WBC PT 19.6 H (9.9-12.6) secs INR 1.7 H (0.8-1.2) Sodium (135-145) mmol/L Potassium (3.5-5.0) mmol/L Chloride (101-111) mmol/L Carbon Dioxide (21-32) mmol/L Anion Gap (6-13) BUN (6-20) mg/dL Creatinine (0.6-1.2) mg/dL Estimated GFR (MDRD) (>89) Glucose (70-100) mg/dL Lactic Acid 1.3 (0.5-2.2) mmol/L Calcium (8.5-10.3) mg/dL Phosphorus (2.5-4.6) mg/dL Magnesium (1.7-2.8) mg/dL B-Natriuretic Peptide (5-100) pg/mL ABX Reporting Has patient been on IV antibiotics over the past 48 hours?: Yes Sepsis Event Note (H) - Evaluation Current Stage of Sepsis: Sepsis Possible source of Sepsis: positive: Pulmonary - Sepsis Criteria Sepsis Criteria: Recorded Respiratory Rate greater than 20, Respiratory: Increasing oxygen requirements, WBC count greater than 12,000 or less than 4000 Assessment/Plan - Problem List (1) Acute respiratory failure with hypoxia Impression: 01/27 stable, 97% sats on room air. continue antibiotics, plan d/c pt on tomorrow, followup pt's heat treating operator on Friday 01/26 improved. 98% sats on room air. WBC is 10.1 continue antibiotics 01/25 clinic pt had great improved. pt had 100% sats on room air. but pt's WBC continue increased continue antibiotics treatment continue breath treatment PRN check sputum culture ECHO reveals 65% EF, but mild to moderate right abnormal pressure, RVSP 48 mmHG hold IVF of NS (2) Sepsis due to pneumonia Conclusion/Plan: 01/27 stable, BP is normotensive, 97% sats on room air CTA of chest reveals multiple areas of consolidation, mediastinal adenopathy, question pneumonia, can not exclude neoplasm, recommend followup. multiple calls were made. pt's heat treating operator will call pt on Wednesday and followup 01/26 resolved. BP is normative 01/25 great improved. pt's BP is normative now, 100% sats on room air. but WBC continue increased. continue antibiotics followup blood culture continue lab and vital monitor (3) Atrial fibrillation Conclusion/Plan: 01/26 INR is 2.5 now, hold Coumadin today. pt report he had bloody stained sputum continue PT/INR check 01/25 stable. since pt's BP is normal, reconcile pt's home metoprolol hold Coumadin, daily PT/INR test continue tele and vital monitor (4) Hyponatremia Conclusion/Plan: 01/25 resolved. (5) Supratherapeutic INR Conclusion/Plan: 01/25 pt's INR was still 3.4, pt is on antibiotics hold Coumadin today, continue PT/INR test (6) BPH (benign prostatic hyperplasia) Conclusion/Plan: Resume home medications (7) ANISH on CPAP Conclusion/Plan: Stable, Continue home CPAP (8) Hyperlipidemia Conclusion/Plan: Stable. Resume Statin (9) cough with bloody stained sputum 01/27 CTA reveals no PE, but has multiple areas of consolidation, mediastinal adenopathy, question pneumonia, can not exclude neoplasm, recommend followup. multiple calls were made. pt's heat treating operator will call pt on Wednesday and followup hold Coumadin because pt still cough with bloody staining sputum H&H 01/26 will do CTA scan for pt, unfortunately CTA is not working today, will order for tomorrow. HGB is stable now. pt has hx of cigarette smoker hold Coumadin sputum culture (10) diastolic heart failure ECHO reveals mild to moderate abnormal right heart pressure. pt has increased BNP. image reveals CHF, small pleural effusion and interstitial edema Lasix 20 po bid fluid restriction daily weight cardiac diet check BNP, tele and vital monitor
[2019-01-27 18:11] LABS: ABSOLUTE RETICS # AUTO 0.063 10^6/uL (0.020-0.110); RED BLOOD COUNT 3.59 10^6/uL (4.70-6.10)
[2019-01-27 18:13] LABS: HGB - HEMOGLOBIN 11.7 g/dL (14.0-18.0)
[2019-01-27 18:30] LABS: % IRON SATURATION 8 % (20-50); IRON 20 ug/dL (45-182); TOTAL IRON BINDING CAPACITY 245 ug/dL (250-450); TRANSFERRIN 175 mg/dL (180-329)
[2019-01-27] MEDS: FUROSEMIDE 20 MG TABLET PO SCH (18:36)
[2019-01-27] MEDS: cefTRIAXone 1 GM in SODIUM CHLORIDE 0.9% MINIBAG 100 ML IV SCH (18:36)
[2019-01-27 18:49] LABS: FERRITIN 455.3 ng/mL (23.9-336.2)
[2019-01-27] MEDS: TAMSULOSIN 0.4 MG CAPSULE PO SCH (20:41)
[2019-01-27] MEDS: FINASTERIDE 5 MG TABLET PO SCH (20:41)
[2019-01-27] MEDS: BENZONATATE 100 MG CAPSULE PO PRN (20:41)
[2019-01-27] MEDS: ZOLPIDEM 5 MG TABLET PO PRN (20:41)
[2019-01-27] MEDS: ATORVASTATIN 40 MG TABLET PO SCH (20:41)
[2019-01-27] MEDS: METOPROLOL SUCCINATE 50 MG TABLET PO SCH (20:41)
[2019-01-27] MEDS: LORATADINE 10 MG TABLET PO SCH (20:42)
[2019-01-28 05:18] LABS: BASOPHILS % (AUTO) 0.5 %; EOSINOPHILS # (AUTO) 0.1 10^3/uL (0.0-0.7); EOSINOPHILS % (AUTO) 1.8 %; HGB - HEMOGLOBIN 11.1 g/dL (14.0-18.0); LYMPHOCYTES # (AUTO) 0.8 10^3/uL (1.5-3.5); LYMPHOCYTES % (AUTO) 14.9 %; MEAN CORPUSCULAR HEMOGLOBIN 32.5 pg (27.0-31.0); MEAN CORPUSCULAR HGB CONC 33.2 g/dL (32.0-36.0); MEAN CORPUSCULAR VOLUME 97.7 fL (80.0-94.0); MEAN PLATELET VOLUME 10.6 fL (7.4-11.4); MONOCYTES # (AUTO) 0.8 10^3/uL (0.0-1.0); NEUTROPHILS # (AUTO) 3.8 10^3/uL (1.5-6.6); NEUTROPHILS % (AUTO) 68.3 %; PLT - PLATELET COUNT 142 10^3/uL (130-450); RED BLOOD COUNT 3.42 10^6/uL (4.70-6.10); RED CELL DISTRIBUTION WIDTH 14.1 % (12.0-15.0); WHITE BLOOD COUNT 5.6 x10^3/uL (4.8-10.8)
[2019-01-28 05:27] LABS: CALCIUM 8.7 mg/dL (8.5-10.3); CREATININE 0.9 mg/dL (0.6-1.2)
[2019-01-28] MEDS: FUROSEMIDE 20 MG TABLET PO SCH (05:32)
[2019-01-28] MEDS ORDERED: FERROUS SULFATE 325 MG TABLET PO SCH (08:00)
[2019-01-28] MEDS: MAGNESIUM OXIDE 400 MG TABLET PO SCH (08:34)
[2019-01-28] MEDS ORDERED: DOCUSATE SODIUM 250 MG CAPSULE PO SCH (09:00)
[2019-01-28] MEDS ORDERED: SENNA 8.6 MG TABLET PO SCH (09:00)
--- NOTE | 2019-01-28 10:15 | Discharge Plan ---
Discharge Plan Problem Reviewed?: Yes Disposition: Home, Self Care Condition: Poor Prescriptions: Benzonatate [Tessalon] 100 mg PO TID PRN #15 capsule PRN Reason: Cough cefUROXime axetil [Ceftin] 500 mg PO Q12H #10 tablet Diet: Regular Activity Restrictions: Activity as Tolerated Shower Restrictions: No (fall precaution) Instruction Topics: Cefuroxime tablets, Pneumonia, ED Cough Chronic Cause Unkn Ch Health Concerns: chronic cough with consolidations and mediastinal adenopathy. Plan of Treatment: you had chronic cough for over three years. you have CTA of your chest study on today. Discuss the result of CTA and care plan with you and your . advise you followup environmental attorney Dr. Hicks on next week. Her office will contact with you, you also had her office phone number. You are prescribed Ceftin antibiotic to finish the treatment course. Care Goals: stabilization and improvement of your medical conditions Assessment: assessment as the above discussion. Additional Instructions or Follow Up instructions: you may followup your PCP in one week, and recheck your PT/INR. You may followup your environmental attorney in next week. Should your symptoms return or worsen, you may present ER or call 911 for help. No Smoking: If you smoke, Please STOP! Call for help. Follow-up with: GERMANIA TAVERA MD [Primary Care Provider] -
[2019-01-28] MEDS ORDERED: WARFARIN 5 MG TABLET PO SCH ×2 (10:22→14:00)
--- NOTE | 2019-01-28 10:26 | DISCHARGE SUMMARY ---
Discharge Summary Discharge Date: 01/28/19 Discharging Provider: SCOTT Primary Care Provider: Jaswinder Joyce Condition at Discharge: Poor Discharge Disposition: 01 Home, Self Care Discharge Facility Name: home - DIAGNOSES Admission Diagnoses: (1) Acute respiratory failure with hypoxia (2) Sepsis due to pneumonia (3) Atrial fibrillation (4) Hyponatremia (5) Supratherapeutic INR (6) BPH (benign prostatic hyperplasia) (7) ANISH on CPAP (8) Hyperlipidemia Discharge Diagnoses with Status of Each Condition: (1) Acute respiratory failure with hypoxia resolved. 95% sats on room air (2) Sepsis due to pneumonia resolved. pt is hemodynamic stable (3) Atrial fibrillation stable (4) Hyponatremia resolved (5) Supratherapeutic INR resolved (6) BPH (benign prostatic hyperplasia) stable (7) ANISH on CPAP stable (8) Hyperlipidemia stable (9) cough with bloody stained sputum stable. very mild bloody stained sputum. pt was scheduled to see his pulmonol ogist on next week. (10) diastolic heart failure stable. - HPI History of Present Illness: refer from Dr. peña's HPI on 01/24/19 This is a 83 year old male with a past medical history significant for atrial fibrillation s/p pacemaker and on coumadin, ANISH on CPAP, and BPH who presents from home today due to a worsening cough. He reports he has had a chronic cough for a few months now and he has been evaluated by pulmonology and ENT. Last night, his cough became more severe and it woke him up from his sleep. He was unable to sleep well last night and his cough did not get better today so he seeked medical attention. He reports the cough is productive, associated with clear blood tinged sputum at times. He reports intermittent shortness of breath but currently denies dyspnea or chest pain. He also denies fevers but reports c hills that began yesterday accompanied with nausea and dry heaves but no emesis. He has also had poor appetite for past 24 hours. He reports feeling weaker the past two days and that normally he ambulates on his own or uses a cane but he required two people for assistance. He reports no recent travel or sick contacts. His reports that EMS mentioned he appeared cyanotic upon their arrival. In the ER, he was afebrile, normotensive and without tachycardia. He was tachypnic and hypoxic requiring 5L of oxygen via nasal cannula. Labs were significant for an elevated white count with a left shift. He also had mild hyponatremia and elevated T bili of 1.8. Troponin was negativ. Lactic was harlan l. BNP elevated at 354 which is increased compared to prior value of 127 from 6 years ago. X-ray was suggestive of mild pulmonary vascular congestion. Patient will be admitted for further management of his respiratory failure. Of note, I did speak with the patient and his regarding goals of care. The patient states that he is a DNR and that he would not want CPR. He is agreeable to mechanical ventilation but only on a temporary basis. - HOSPITAL COURSE Hospital Course: pt was admitted for worsening cough and respiratory failure with hypoxia. pt was required to have 5 liter of O2 by MT in the admission. pt was found to have pneumonia. pt was treated with antibiotics. pt's report he had chronic cough over 3 yrs, with clear mild bloody stained sputum. After treatment, pt has no more respiratory distress, 95/98% sat on room air. CTA of chest today reveals multiple areas of consolidation, mediastinal adenopathy, question pneumonia, can not exclude neoplasm, recommend followup. pt's teasel setter Dr. Hicks was called and scheduled pt to followup her on next week. Dr. Hicks told me her office will call pt on next Wednesday. Dr. Hicks's office number was given to pt as well. the detail hospital course is as the below 1) Acute respiratory failure with hypoxia resolved. pt has 95/98% sats on room air (2) Sepsis due to pneumonia resolved. pt is hemodynamic stable. pt is prescribed ceftin to finish the treatment course. (3) Atrial fibrillation stable (4) Hyponatremia resolved (5) Supratherapeutic INR resolved (6) BPH (benign prostatic hyperplasia) stable (7) ANISH on CPAP stable (8) Hyperlipidemia stable (9) cough with bloody stained sputum stable. very mild bloody stained clear sputum. pt was scheduled to see his teasel setter on next week. (10) diastolic heart failure stable. - ALLERGIES Allergies/Adverse Reactions: Allergies Allergy/AdvReac Type Severity Reaction Status Date / Time No Known Drug Allergies Allergy Verified 01/24/19 17:02 - MEDICATIONS Home Medications: Ambulatory Orders Medication Instructions Recorded Confirmed Albuterol Sulfate [Proventil Hfa 1 - 2 puffs IH Q4H PRN #1 01/07/18 09/04/19 Inhaler] [email or web address] Atorvastatin [Lipitor] 20 mg PO DAILY PM 10/12/18 01/24/19 Finasteride 5 mg PO DAILY PM 10/12/18 01/24/19 Ipratropium [Atrovent] 2 puffs INH TID 10/12/18 01/24/19 Loratadine 10 mg PO DAILY PM 10/12/18 01/24/19 Magnesium 500 mg PO DAILY PM 10/12/18 01/24/19 Metoprolol Succinate [Kapspargo 25 mg PO DAILY 10/12/18 01/24/19 Sprinkle] Tamsulosin [Flomax] 0.4 mg PO DAILY PM 10/12/18 01/24/19 Warfarin [Coumadin] 5 mg PO QDWARFARIN 10/12/18 01/24/19 traMADol [Ultram] 50 mg PO PRN PRN 10/12/18 01/24/19 Acetaminophen [Acetaminophen ER] 650 mg PO PRN PRN 01/24/19 01/24/19 Metoprolol Succinate [Toprol Xl] 50 mg PO DAILY PM 01/24/19 01/24/19 Warfarin [Coumadin] 2.5 mg PO QDWARFARIN 01/24/19 01/24/19 Benzonatate [Tessalon] 100 mg PO TID PRN #15 capsule 01/27/19 cefUROXime axetil [Ceftin] 500 mg PO Q12H #10 tablet 01/28/19 - PHYSICAL EXAM AT DISCHARGE General Appearance: positive: No acute distress, Alert. negative: Lethargic Eyes Bilateral: positive: Normal inspection, PERRL, No lid inflammation, Conjunctivae nml ENT: positive: ENT inspection nml, Pharynx nml, No signs of dehydration. negative: Purulent nasal drainage, Pharyngeal erythema, Oral lesions Neck: positive: Nml inspection, Thyroid nml, No JVD, Trachea midline. negative: Thyromegaly, Lymphadenopathy (R), Lymphadenopathy (L), Stiff neck, Swelling/bruising, Tracheal deviation Respiratory: positive: Chest non-tender, No respiratory distress. negative: Wheezes, Rales, Rhonchi Cardiovascular: positive: Regular rate & rhythm, No murmur, No gallop. negative: Irregularly irregular, Extrasystoles, Tachycardia, Bradycardia, JVD present, Systolic murmur, Diastolic murmur Peripheral Pulses: positive: 2+ Abdomen: positive: Non-tender, No organomegaly, Nml bowel sounds, No distention. negative: Tenderness, Guarding, Rebound Back: positive: Nml inspection. negative: CVA tenderness (R), CVA tenderness (L) Skin: positive: Color nml, No rash, Warm, Dry. negative: Cyanosis, Diaphoresis, Pallor Extremities: positive: Non-tender, Full ROM, Nml appearance. negative: Calf tenderness, Joint swelling, Wenceslao's sign/cords Neurologic/Psychiatric: positive: Oriented x3, Motor nml, Sensation nml, Mood/affect nml. negative: Weakness, Sensory loss, Facial droop, Slurred/abnml speech, Depressed mood/affect - LABS Result Diagrams: 01/28/19 04:48 01/28/19 04:48 - SEPSIS Current Stage of Sepsis: Sepsis Possible source of Sepsis: Pulmonary Sepsis Criteria: Recorded Respiratory Rate greater than 20, Respiratory: Increasing oxygen requirements, WBC count greater than 12,000 or less than 4000 - FOLLOW UP Follow Up: you had chronic cough for over three years. you have CTA of your chest study on today. Discuss the result of CTA and care plan with you and your . advise you followup teasel setter Dr. Hicks on next week. Her office will contact with you, you also had her office phone number. You are prescribed Ceftin antibiotic to finish the treatment course. you may followup your PCP in one week, and recheck your PT/INR. You may followup your teasel setter in next week. Should your symptoms return or worsen, you may present ER or call 911 for help. - TIME SPENT Time Spent in Discharge (Minutes): 60
[2019-01-28] MEDS: AZITHROMYCIN 250 MG TABLET PO SCH (10:31)
[2019-01-28] MEDS: METOPROLOL SUCCINATE 25 MG TABLET PO SCH (10:31)
[2019-01-28] MEDS: POLYETHYLENE GLYCOL 3350 17 GM PACKET PO SCH (10:32)
[2019-01-28 12:27] VITALS: BP 140/64
== END 2019-01-28 12:45 | disposition home or self-care (01) | DRG 871 ==
LOC: EDUNIT# → ED 16:47 → MS2 19:34
PROVIDERS: ADMIT Internal Medicine; ATTEND Nurse Practitioner Gerontology
DX: A41.9 Sepsis, unspecified organism (principal); J96.01 Acute respiratory failure with hypoxia; J18.9 Pneumonia, unspecified organism; E87.1 Hypo-osmolality and hyponatremia; K92.0 Hematemesis; I50.30 Unspecified diastolic (congestive) heart failure; I48.91 Unspecified atrial fibrillation; G47.33 Obstructive sleep apnea (adult) (pediatric); E78.5 Hyperlipidemia, unspecified; R59.0 Localized enlarged lymph nodes; R79.1 Abnormal coagulation profile; M19.90 Unspecified osteoarthritis, unspecified site; H91.90 Unspecified hearing loss, unspecified ear; Z79.51 Long term (current) use of inhaled steroids; Z79.01 Long term (current) use of anticoagulants; Z87.891 Personal history of nicotine dependence; Z95.0 Presence of cardiac pacemaker; Z66 Do not resuscitate
CPT/HCPCS: 36415; 71045; 71046; 71275; 80048; 80053; 81003; 82607; 82728; 83540; 83605; 83615; 83690; 83735; 83880; 84100; 84466; 84484; 85014; 85018; 85025; 85044; 85610; 87040; 87070; 87205; 93005; 93306; 96361; 96365; 96368; 97161; 99283; 99285; A9270; Q9967; 81001; 87086

== ENCOUNTER 2019-02-03 08:00 | Outpatient (CLI) | payer MEDICARE, OTHER | END 2019-02-03 23:59 | disposition home or self-care (01) | LOC: LAB.N 08:00 | PROVIDERS: ATTEND Family Medicine | DX: I48.91 Unspecified atrial fibrillation (principal); Z79.01 Long term (current) use of anticoagulants | CPT/HCPCS: 85610 ==

== ENCOUNTER 2019-02-17 09:56 | Outpatient (CLI) | payer MEDICARE, OTHER ==
[2019-02-17 10:37] LABS: ALBUMIN 3.6 g/dL (3.2-5.5); ALBUMIN/GLOBULIN RATIO 1.2 (1.0-2.2); ALKALINE PHOSPHATASE 76 IU/L (42-121); ALT ALANINE AMINOTRANSFERASE 27 IU/L (10-60); AST ASPARTATE AMINOTRANSFERASE 31 IU/L (10-42); BILIRUBIN,TOTAL 0.7 mg/dL (0.2-1.0); BUN - BLOOD UREA NITROGEN 26 mg/dL (6-20); CALCIUM 9.2 mg/dL (8.5-10.3); CARBON DIOXIDE - CO2 32 mmol/L (21-32); CHLORIDE 101 mmol/L (101-111); CHOL/HDL RATIO 2.5 (<5.0); CHOLESTEROL 177 mg/dL; CREATININE 1.1 mg/dL (0.6-1.2); GFR - MDRD 64 (>89); GLUCOSE 108 mg/dL (70-100); HDL CHOLESTEROL 71 mg/dL; SODIUM 140 mmol/L (135-145); TOTAL PROTEIN 6.6 g/dL (6.7-8.2)
== END 2019-02-17 09:57 | disposition home or self-care (01) ==
LOC: LAB 09:56
PROVIDERS: ATTEND Internal Medicine Cardiovascular Disease
DX: E78.5 Hyperlipidemia, unspecified (principal); E87.1 Hypo-osmolality and hyponatremia; Z79.01 Long term (current) use of anticoagulants; I48.91 Unspecified atrial fibrillation
CPT/HCPCS: 36415; 80053; 80061; 83721; 85610

== ENCOUNTER 2019-02-17 13:55 | Outpatient (CLI) | payer MEDICARE, OTHER | END 2019-02-17 23:59 | disposition home or self-care (01) | LOC: LAB.N 13:55 | PROVIDERS: ATTEND Family Medicine | DX: Z79.01 Long term (current) use of anticoagulants (principal); I48.91 Unspecified atrial fibrillation | CPT/HCPCS: 85610 ==

== ENCOUNTER 2019-02-22 15:22 | Outpatient (CLI) | payer MEDICARE, OTHER ==
[2019-02-22 16:18] VITALS: BP 106/64
--- NOTE | 2019-02-22 16:19 | SLEEP CARE CONSULTATION ---
Information from patient questionnaire entered by Rochelle Rojas. I have reviewed and concur with the information entered by Rochelle Rojas. This document represents the service I personally performed and the decisions made by me, Ashley Alfaro, RN, MSN, [place] [employer]. History of Present Illness Previous diagnosis: Severe, Central Sleep Apnea-Hypopnea Syndrome AHI: 46.7 Reason for CPAP/BiPAP follow up: annual Equipment type: BiPAP Equipment obtained from: [facility] (Patient very frustrated with trying to get equipment) Mask style: Nasal pillows (pilaro) Backup mask available: Yes Last cushion change: 2 months Prior sleep studies: Yes Year and Where: 2012 [facility] CPAP Compliance Data - Data Reviewed with Patient Average duration of nightly device use: 8h 56m Compliance rate %: 97.8 Current pressure setting (cmH2O): 12/7 Humidity settin Heated hose settin Average residual AHI: 6.5 Central apnea: 4.6 Obstructive apnea: 0.5 Hypopnea: 1.4 Subjective Missed days of use due to: reports: illness (hospitalized with pneumonia ) Patient concerns: reports: dry mouth, nose, throat (rare ). denies: aerophagia, mask discomfort, air blowing in eyes, mask leak noise, condensation in mask/hose, nasal congestion, epistaxis Observed to snore while using device: Yes (rare) Current pressure setting perceived as: comfortable On therapy, patient: reports: sleeping better, awakening more refreshed, being more awake and alert during the day, more rested overall. denies: drowsiness while driving Initial [place] Sleepiness Scale score: 11 Current [place] Sleepiness Scale score: 14 Allergies and Home Medications Known drug allergies: No Home medication list reviewed: Yes Allergy and home medication list: Medication Name (generic/name brand) Strength & Dosage Atorvastatin Calcium 20mg tab one daily in the pm Finasteride 5mg tab one daily Flomax 0.4mg cap one daily Ipratropium [place] 0.06% nasal solution Inhale two puffs three times daily prn Warfarin Sodium 5mg tab take as directed Magnesium Oxide 400mg tab one daily at bedtime Metoprolol Tartrate 50mg tab one twice daily Hydrocodone-Acetaminophen 5-325mg one-two at night prn Lisinopril 10mg tab one daily Tamsulosin 0.4mg tab one daily Tramadol 50mg tab prn Allacure 1tablet HS Review of Systems Review of systems same as previous: No (hospitalized pneumonia last month ) Physical Exam Blood Pressure: 106/64 Cuff size: long Heart Rate: 83 O2 Saturation: 94 Weight: 186 lb 9.6 oz Weight change since last visit: gained 6 pounds Impression and Plan 1. Central Sleep Apnea-Hypopnea Syndrome, severe, with good treatment compliance and good apnea control. On BiPAP therapy, the patient has better sleep quality and is more rested overall. His residual AHI was elevated during two periods of time when he had exceptional mask leaks only so the pressure will not be change d. Patient advised to change mask cushion more often. For his supply concerns, he would like to transfer to [facility]. I will have staff inform him of his options and make a DWO prescription. If continued problems, he is to contact this office. For oral dryness, he is advised to adjust humidity if continues. If snore does not resolve with reduction of mask leaks contact this office for pressure change. Patient's apnea severity and rationale for treatment to reduce apnea, improve sleep quality and reduce cardiovascular and cerebrovascular events was reviewed. I also reviewed the benefit of consistent device use of BiPAP for hypertension, arrhythmia. * Continue BiPAP pressure at 12/7cmH2O * change mask cushion more frequently * Notify me if snoring with mask or feeling that the pressure is too much or too little * Attempt to lose weight * Transfer to new [facility]. * Return for follow up in 1 year , or sooner if concerns arise I spent 100% of this 30 minute visit face to face with the patient with greater than 50% of this was spent time counseling the patient and coordination of care.
== END 2019-02-22 15:23 | disposition home or self-care (01) ==
LOC: SC 15:22
PROVIDERS: ATTEND Nurse Practitioner Family
DX: G47.31 Primary central sleep apnea (principal)
CPT/HCPCS: 99214; G0463; 99212

== ENCOUNTER 2019-03-03 08:00 | Outpatient (CLI) | payer MEDICARE, OTHER | END 2019-03-03 23:59 | LOC: LAB.N 08:00 | PROVIDERS: ATTEND Family Medicine | DX: I48.91 Unspecified atrial fibrillation (principal); Z79.01 Long term (current) use of anticoagulants | CPT/HCPCS: 85610 ==

== ENCOUNTER 2019-03-23 15:17 | Outpatient (CLI) | payer MEDICARE, OTHER | END 2019-03-23 23:59 | disposition home or self-care (01) | LOC: LAB.N 15:17 | PROVIDERS: ATTEND Family Medicine | DX: I48.91 Unspecified atrial fibrillation (principal); Z79.01 Long term (current) use of anticoagulants | CPT/HCPCS: 85610 ==

== ENCOUNTER 2019-03-31 14:26 | Outpatient (CLI) | payer MEDICARE, OTHER | END 2019-03-31 23:59 | disposition home or self-care (01) | LOC: LAB.N 14:26 | PROVIDERS: ATTEND Family Medicine | DX: Z79.01 Long term (current) use of anticoagulants (principal); I48.91 Unspecified atrial fibrillation | CPT/HCPCS: 85610 ==

== ENCOUNTER 2019-04-14 13:57 | Outpatient (CLI) | payer MEDICARE, OTHER | END 2019-04-14 23:59 | disposition home or self-care (01) | LOC: LAB.N 13:57 | PROVIDERS: ATTEND Family Medicine | DX: Z79.01 Long term (current) use of anticoagulants (principal); I48.91 Unspecified atrial fibrillation | CPT/HCPCS: 85610 ==

== ENCOUNTER 2019-05-01 14:10 | Outpatient (CLI) | payer MEDICARE, OTHER | END 2019-05-01 23:59 | disposition home or self-care (01) | LOC: LAB.N 14:10 | PROVIDERS: ATTEND Family Medicine | DX: Z79.01 Long term (current) use of anticoagulants (principal); I48.91 Unspecified atrial fibrillation | CPT/HCPCS: 85610 ==

== ENCOUNTER 2019-05-12 08:00 | Outpatient (CLI) | payer MEDICARE, OTHER | END 2019-05-12 23:59 | LOC: LAB.N 08:00 | PROVIDERS: ATTEND Family Medicine | DX: Z79.01 Long term (current) use of anticoagulants (principal); I48.91 Unspecified atrial fibrillation | CPT/HCPCS: 85610 ==

== ENCOUNTER 2019-05-23 08:00 | Outpatient (CLI) | payer MEDICARE, OTHER | END 2019-05-23 23:59 | disposition home or self-care (01) | LOC: LAB.N 08:00 | PROVIDERS: ATTEND Family Medicine | DX: Z79.01 Long term (current) use of anticoagulants (principal); I48.91 Unspecified atrial fibrillation | CPT/HCPCS: 85610 ==

== ENCOUNTER 2019-06-01 08:00 | Outpatient (CLI) | payer MEDICARE, OTHER ==
[2019-06-01 18:39] LABS: BASOPHILS % (AUTO) 0.8 %; EOSINOPHILS # (AUTO) 0.1 10^3/uL (0.0-0.7); EOSINOPHILS % (AUTO) 1.8 %; HGB - HEMOGLOBIN 13.4 g/dL (14.0-18.0); LYMPHOCYTES # (AUTO) 1.2 10^3/uL (1.5-3.5); LYMPHOCYTES % (AUTO) 23.7 %; MEAN CORPUSCULAR HEMOGLOBIN 31.8 pg (27.0-31.0); MEAN CORPUSCULAR HGB CONC 32.5 g/dL (32.0-36.0); MEAN CORPUSCULAR VOLUME 97.9 fL (80.0-94.0); MEAN PLATELET VOLUME 11.6 fL (7.4-11.4); MONOCYTES # (AUTO) 0.8 10^3/uL (0.0-1.0); MONOCYTES % (AUTO) 16.5 %; NEUTROPHILS # (AUTO) 2.8 10^3/uL (1.5-6.6); NEUTROPHILS % (AUTO) 56.8 %; PLT - PLATELET COUNT 119 10^3/uL (130-450); RED BLOOD COUNT 4.21 10^6/uL (4.70-6.10); RED CELL DISTRIBUTION WIDTH 14.6 % (12.0-15.0); WHITE BLOOD COUNT 4.9 x10^3/uL (4.8-10.8)
[2019-06-01 18:50] LABS: CALCIUM 9.3 mg/dL (8.5-10.3); CREATININE 1.2 mg/dL (0.6-1.2)
== END 2019-06-01 23:59 | disposition home or self-care (01) ==
LOC: LAB.N 08:00
PROVIDERS: ATTEND Family Medicine
DX: Z01.818 Encounter for other preprocedural examination (principal); N28.9 Disorder of kidney and ureter, unspecified; Z79.01 Long term (current) use of anticoagulants; I48.91 Unspecified atrial fibrillation
CPT/HCPCS: 36415; 80048; 85025; 85610

== ENCOUNTER 2019-06-19 08:00 | Outpatient (CLI) | payer MEDICARE, OTHER | END 2019-06-19 23:59 | disposition home or self-care (01) | LOC: LAB.N 08:00 | PROVIDERS: ATTEND Family Medicine | DX: Z79.01 Long term (current) use of anticoagulants (principal); I48.91 Unspecified atrial fibrillation | CPT/HCPCS: 85610 ==

== ENCOUNTER 2019-07-03 09:53 | Outpatient (CLI) | payer MEDICARE, OTHER | END 2019-07-03 23:59 | disposition home or self-care (01) | LOC: LAB.N 09:53 | PROVIDERS: ATTEND Family Medicine | DX: Z79.01 Long term (current) use of anticoagulants (principal); I48.91 Unspecified atrial fibrillation | CPT/HCPCS: 85610 ==

== ENCOUNTER 2019-07-14 11:53 | Outpatient (CLI) | payer MEDICARE, OTHER | END 2019-07-14 23:59 | disposition home or self-care (01) | LOC: LAB.N 11:53 | PROVIDERS: ATTEND Family Medicine | DX: I48.91 Unspecified atrial fibrillation (principal); Z79.01 Long term (current) use of anticoagulants | CPT/HCPCS: 85610 ==

== ENCOUNTER 2019-07-21 08:00 | Outpatient (CLI) | payer MEDICARE, OTHER | END 2019-07-21 23:59 | disposition home or self-care (01) | LOC: LAB.R 08:00 | PROVIDERS: ATTEND Family Medicine | DX: I48.91 Unspecified atrial fibrillation (principal) | CPT/HCPCS: 85610 ==

== ENCOUNTER 2019-07-28 11:00 | Outpatient (CLI) | payer MEDICARE, OTHER | END 2019-07-28 23:59 | disposition home or self-care (01) | LOC: LAB.N 11:00 | PROVIDERS: ATTEND Family Medicine | DX: I48.91 Unspecified atrial fibrillation (principal); Z79.01 Long term (current) use of anticoagulants | CPT/HCPCS: 85610 ==

== ENCOUNTER 2019-08-07 11:08 | Outpatient (CLI) | payer MEDICARE, OTHER | END 2019-08-07 23:59 | disposition home or self-care (01) | LOC: LAB.N 11:08 | PROVIDERS: ATTEND Family Medicine | DX: I48.91 Unspecified atrial fibrillation (principal); Z79.01 Long term (current) use of anticoagulants | CPT/HCPCS: 85610 ==

== ENCOUNTER 2019-08-21 08:00 | Outpatient (CLI) | payer MEDICARE, OTHER | END 2019-08-21 23:59 | disposition home or self-care (01) | LOC: LAB.N 08:00 | PROVIDERS: ATTEND Family Medicine | DX: I48.91 Unspecified atrial fibrillation (principal); Z79.01 Long term (current) use of anticoagulants | CPT/HCPCS: 36415; 85610 ==

== ENCOUNTER 2019-09-18 08:00 | Outpatient (CLI) | payer MEDICARE, OTHER | END 2019-09-18 23:59 | disposition home or self-care (01) | LOC: LAB.WCP 08:00 | PROVIDERS: ATTEND Family Medicine | DX: I48.91 Unspecified atrial fibrillation (principal); Z79.01 Long term (current) use of anticoagulants ==

== ENCOUNTER 2019-09-20 08:00 | Outpatient (CLI) | payer MEDICARE, OTHER ==
[2019-09-20 13:40] LABS: BASOPHILS # (AUTO) 0.1 10^3/uL (0.0-0.1); BASOPHILS % (AUTO) 1.4 %; EOSINOPHILS # (AUTO) 0.1 10^3/uL (0.0-0.7); EOSINOPHILS % (AUTO) 2.8 %; HGB - HEMOGLOBIN 13.6 g/dL (14.0-18.0); LYMPHOCYTES # (AUTO) 1.1 10^3/uL (1.5-3.5); LYMPHOCYTES % (AUTO) 26.5 %; MEAN CORPUSCULAR HEMOGLOBIN 32.2 pg (27.0-31.0); MEAN CORPUSCULAR HGB CONC 32.7 g/dL (32.0-36.0); MEAN CORPUSCULAR VOLUME 98.3 fL (80.0-94.0); MEAN PLATELET VOLUME 11.5 fL (7.4-11.4); MONOCYTES # (AUTO) 0.6 10^3/uL (0.0-1.0); MONOCYTES % (AUTO) 13.6 %; NEUTROPHILS # (AUTO) 2.4 10^3/uL (1.5-6.6); NEUTROPHILS % (AUTO) 55.7 %; PLT - PLATELET COUNT 118 10^3/uL (130-450); RED BLOOD COUNT 4.23 10^6/uL (4.70-6.10); RED CELL DISTRIBUTION WIDTH 14.2 % (12.0-15.0); WHITE BLOOD COUNT 4.3 x10^3/uL (4.8-10.8)
[2019-09-20 14:05] LABS: ALBUMIN 4.2 g/dL (3.2-5.5); ALBUMIN/GLOBULIN RATIO 1.6 (1.0-2.2); ALKALINE PHOSPHATASE 89 IU/L (42-121); ALT ALANINE AMINOTRANSFERASE 28 IU/L (10-60); AST ASPARTATE AMINOTRANSFERASE 40 IU/L (10-42); BILIRUBIN,TOTAL 0.9 mg/dL (0.2-1.0); BUN - BLOOD UREA NITROGEN 24 mg/dL (6-20); CALCIUM 9.2 mg/dL (8.5-10.3); CARBON DIOXIDE - CO2 32 mmol/L (21-32); CHLORIDE 102 mmol/L (101-111); CHOL/HDL RATIO 2.2 (<5.0); CHOLESTEROL 154 mg/dL; CREATININE 1.1 mg/dL (0.6-1.2); GLUCOSE 100 mg/dL (70-100); HDL CHOLESTEROL 69 mg/dL; LDL CHOLESTEROL,CALCULATED 77 mg/dL; LDL/HDL RATIO 1.1 (<3.6); SODIUM 139 mmol/L (135-145); TOTAL PROTEIN 6.8 g/dL (6.7-8.2); VLDL CHOLESTEROL 8 mg/dL
== END 2019-09-20 23:59 | disposition home or self-care (01) ==
LOC: LAB.WCP 08:00
PROVIDERS: ATTEND Family Medicine
DX: I10 Essential (primary) hypertension (principal); E78.5 Hyperlipidemia, unspecified; N28.9 Disorder of kidney and ureter, unspecified
CPT/HCPCS: 36415; 80053; 80061; 83721; 84443; 85025

== ENCOUNTER 2019-11-14 08:00 | Outpatient (CLI) | payer MEDICARE, OTHER | END 2019-11-14 23:59 | disposition home or self-care (01) | LOC: LAB.WCP 08:00 | PROVIDERS: ATTEND Physician Assistant Medical | DX: I48.91 Unspecified atrial fibrillation (principal); Z79.01 Long term (current) use of anticoagulants ==

== ENCOUNTER 2019-12-12 08:00 | Outpatient (CLI) | payer MEDICARE, OTHER | END 2019-12-12 23:59 | disposition home or self-care (01) | LOC: LAB.WCP 08:00 | PROVIDERS: ATTEND Family Medicine | DX: Z79.01 Long term (current) use of anticoagulants (principal) ==

== ENCOUNTER 2020-02-13 08:00 | Outpatient (CLI) | payer MEDICARE, OTHER | END 2020-02-13 23:59 | disposition home or self-care (01) | LOC: LAB.WCP 08:00 | PROVIDERS: ATTEND Nurse Practitioner Family | DX: Z79.01 Long term (current) use of anticoagulants (principal) ==

== ENCOUNTER 2020-02-22 08:00 | Outpatient (CLI) | payer MEDICARE, OTHER | END 2020-02-22 23:59 | disposition home or self-care (01) | LOC: LAB.WCP 08:00 | PROVIDERS: ATTEND Family Medicine | DX: Z79.01 Long term (current) use of anticoagulants (principal) ==

== ENCOUNTER 2020-02-22 15:13 | Outpatient (CLI) | payer MEDICARE, OTHER ==
[2020-02-22 16:18] VITALS: BP 160/90
--- NOTE | 2020-02-22 16:18 | SLEEP CARE CONSULTATION ---
Information from patient questionnaire entered by Hannah Hicks. I have reviewed and concur with the information entered by Hannah Hicks. This document represents the service I personally performed and the decisions made by me, Ashley Alfaro, RN, MSN, [employer]. History of Present Illness Service Date and Time: 02/22/2020 1513 Previous diagnosis: Severe, Central Sleep Apnea-Hypopnea Syndrome AHI: 46.7 (in 2013) Reason for follow up: annual (last seen 2019) Equipment type: BiPAP Mask style: Nasal pillows (pilaro) Backup mask available: Yes (old mask ) Last cushion change: about 2 weeks ago Prior sleep studies: Yes Year and Where: 2013 - [facility] - Results Prior sleep studies: Yes Year and Where: 2012 [facility] CPAP Compliance Data - Data Reviewed with Patient Average duration of nightly device use: 8.75 Compliance rate %: 100 (180 days) Current pressure setting (cmH2O): 12/7 Humidity settin Heated hose settin Average residual AHI: 4.5 Average large leak: 3 min 5 sec Subjective Patient concerns: reports: dry mouth, nose, throat (occasional ), other (very pleased with new [facility] ). denies: aerophagia, mask discomfort, air blowing in eyes, mask leak noise, condensation in mask/hose, nasal congestion, epistaxis Observed to snore while using device: No Current pressure setting perceived as: comfortable On therapy, patient: reports: sleeping better, awakening more refreshed, being more awake and alert during the day, more rested overall. denies: drowsiness while driving Initial [place] Sleepiness Scale score: 11 (in 2013) Allergies and Home Medications Known drug allergies: No Home medication list reviewed: Yes (no changes ) Review of Systems Review of systems same as previous: No (tachycardia 3 weeks ago /heart cath/ new pacemaker next week) Physical Exam Blood Pressure: 160/90 (monitors at home ) Cuff size: long Heart Rate: 82 O2 Saturation: 94 Height: 6 ft Weight: 188 lb 9.6 oz Body Mass Index: 25.5 BMI Classification: Overweight Impression and Plan 1. Central Sleep Apnea-Hypopnea Syndrome, severe, with good treatment compliance and good apnea control. On BiPAP therapy, the patient has better sleep quality and is more rested overall. Occasional oral dryness can be reduced by adjusting humidity setting higher or heated hose lower or by adjusting both settings. Patient aware how to change settings. Patient's apnea severity and rationale for treatment to reduce apnea, improve sleep quality and reduce cardiovascular and cerebrovascular events was reviewed. I also reviewed the benefit of consistent device use of CPAP for hypertension, arrhythmia. 2. Elevated Blood pressure this visit. 160/90 and same at end of visit. Patients usual blood pressure range was 115/70 this morning but can be higher range. The patient was advised to monitor at home and retake today after resting and contact their primary care provider if still elevated for guidelines and further evaluation. Health risks associated with high blood pressure reviewed and when urgent follow up is indicated. * Continue BiPAP pressure at 13/7 cmH2O * Contact PCP if blood pressure remains elevated * Notify me if snoring with mask or feeling that the pressure is too much or too little * Attempt to lose some weight * Call this office if any problems using CPAP * Return for follow up in 1 year , or sooner if concerns arise Visit Type: In Office Time Spent with Patient (minutes): 20 Provider Statement: I spent 100% of the Face to Face Visit with the patient with greater than 50% spent counseling the patient and coordination of care.
== END 2020-02-22 15:14 | disposition home or self-care (01) ==
LOC: SC 15:13
PROVIDERS: ATTEND Nurse Practitioner Family
DX: G47.31 Primary central sleep apnea (principal); E66.3 Overweight; Z68.25 Body mass index [BMI] 25.0-25.9, adult; R03.0 Elevated blood-pressure reading, without diagnosis of hypertension
CPT/HCPCS: 99214; G0463; 99212

== ENCOUNTER 2020-03-05 08:00 | Outpatient (CLI) | payer MEDICARE, OTHER ==
[2020-03-05 19:27] LABS: ALBUMIN 3.9 g/dL (3.2-5.5); ALBUMIN/GLOBULIN RATIO 1.4 (1.0-2.2); BILIRUBIN,TOTAL 0.6 mg/dL (0.2-1.0); CALCIUM 9.5 mg/dL (8.5-10.3); CREATININE 1.8 mg/dL (0.6-1.2); TOTAL PROTEIN 6.6 g/dL (6.7-8.2)
== END 2020-03-05 23:59 | disposition home or self-care (01) ==
LOC: LAB.WCP 08:00
PROVIDERS: ATTEND Physician Assistant
DX: I47.2 Ventricular tachycardia (principal); Z79.01 Long term (current) use of anticoagulants
CPT/HCPCS: 36415; 80053

== ENCOUNTER 2020-03-12 08:00 | Outpatient (CLI) | payer MEDICARE, OTHER | END 2020-03-12 23:59 | disposition home or self-care (01) | LOC: LAB.WCP 08:00 | PROVIDERS: ATTEND Family Medicine | DX: Z79.01 Long term (current) use of anticoagulants (principal) ==

== ENCOUNTER 2020-03-27 08:00 | Outpatient (CLI) | payer MEDICARE, OTHER | END 2020-03-27 23:59 | disposition home or self-care (01) | LOC: LAB.WCP 08:00 | PROVIDERS: ATTEND Physician Assistant Medical | DX: Z79.01 Long term (current) use of anticoagulants (principal) ==

== ENCOUNTER 2020-04-03 08:00 | Outpatient (CLI) | payer MEDICARE, OTHER | END 2020-04-03 23:59 | disposition home or self-care (01) | LOC: LAB.WCP 08:00 | PROVIDERS: ATTEND Family Medicine | DX: Z79.01 Long term (current) use of anticoagulants (principal) ==

== ENCOUNTER 2020-04-15 14:27 | Outpatient (CLI) | payer MEDICARE, OTHER ==
[2020-04-15 15:01] LABS: ALBUMIN/GLOBULIN RATIO 1.5 (1.0-2.2); BILIRUBIN,TOTAL 1.1 mg/dL (0.2-1.0); CALCIUM 9.1 mg/dL (8.5-10.3); CREATININE 1.7 mg/dL (0.6-1.2); TOTAL PROTEIN 6.6 g/dL (6.7-8.2)
== END 2020-04-15 14:28 | disposition home or self-care (01) ==
LOC: LAB 14:27
PROVIDERS: ATTEND Internal Medicine Cardiovascular Disease
DX: I47.2 Ventricular tachycardia (principal)
CPT/HCPCS: 36415; 80053

== ENCOUNTER 2020-04-17 08:00 | Outpatient (CLI) | payer MEDICARE, OTHER | END 2020-04-17 23:59 | disposition home or self-care (01) | LOC: LAB.WCP 08:00 | PROVIDERS: ATTEND Family Medicine | DX: Z79.01 Long term (current) use of anticoagulants (principal) ==

== ENCOUNTER 2020-05-01 08:00 | Outpatient (CLI) | payer MEDICARE, OTHER | END 2020-05-01 23:59 | disposition home or self-care (01) | LOC: LAB.WCP 08:00 | PROVIDERS: ATTEND Family Medicine | DX: Z79.01 Long term (current) use of anticoagulants (principal) ==

== ENCOUNTER 2020-06-17 08:00 | Outpatient (CLI) | payer MEDICARE, OTHER | END 2020-06-17 23:59 | disposition home or self-care (01) | LOC: LAB.WCP 08:00 | PROVIDERS: ATTEND Family Medicine | DX: Z79.01 Long term (current) use of anticoagulants (principal) ==

== ENCOUNTER 2020-07-23 07:39 | Outpatient (CLI) | payer MEDICARE, OTHER ==
[2020-07-23 08:56] LABS: INR 3.9 (0.8-1.2); PT - PROTHROMBIN TIME 39.8 secs (9.9-12.6)
[2020-07-23 08:59] LABS: ALBUMIN 3.7 g/dL (3.2-5.5); ALBUMIN/GLOBULIN RATIO 1.3 (1.0-2.2); ALKALINE PHOSPHATASE 86 IU/L (42-121); ALT ALANINE AMINOTRANSFERASE 42 IU/L (10-60); AST ASPARTATE AMINOTRANSFERASE 49 IU/L (10-42); BILIRUBIN,TOTAL 0.6 mg/dL (0.2-1.0); BUN - BLOOD UREA NITROGEN 32 mg/dL (6-20); CALCIUM 9.4 mg/dL (8.5-10.3); CARBON DIOXIDE - CO2 27 mmol/L (21-32); CHLORIDE 102 mmol/L (101-111); CHOL/HDL RATIO 2.1 (<5.0); CHOLESTEROL 193 mg/dL; CREATININE 1.7 mg/dL (0.6-1.2); GFR - MDRD 39 (>89); GLUCOSE 105 mg/dL (70-100); HDL CHOLESTEROL 90 mg/dL; LDL CHOLESTEROL,CALCULATED 95 mg/dL; LDL/HDL RATIO 1.1 (<3.6); POTASSIUM 5.1 mmol/L (3.5-5.0); SODIUM 139 mmol/L (135-145); TOTAL PROTEIN 6.5 g/dL (6.7-8.2); TRIGLYCERIDES 41 mg/dL; VLDL CHOLESTEROL 8 mg/dL
== END 2020-07-23 07:40 | disposition home or self-care (01) ==
LOC: LAB 07:39
PROVIDERS: ATTEND Internal Medicine Cardiovascular Disease
DX: I10 Essential (primary) hypertension (principal); R94.2 Abnormal results of pulmonary function studies; Z79.899 Other long term (current) drug therapy; Z79.01 Long term (current) use of anticoagulants
CPT/HCPCS: 36415; 80053; 80061; 83721; 84443; 85610

== ENCOUNTER 2020-07-24 08:00 | Outpatient (CLI) | payer MEDICARE, OTHER | END 2020-07-24 23:59 | disposition home or self-care (01) | LOC: LAB.WCP 08:00 | PROVIDERS: ATTEND Family Medicine | DX: I48.91 Unspecified atrial fibrillation (principal); Z79.01 Long term (current) use of anticoagulants ==

== ENCOUNTER 2020-07-29 08:00 | Outpatient (CLI) | payer MEDICARE, OTHER ==
[2020-07-29 11:52] LABS: CALCIUM 9.7 mg/dL (8.5-10.3); CREATININE 1.7 mg/dL (0.6-1.2); POTASSIUM 4.8 mmol/L (3.5-5.0)
== END 2020-07-29 23:59 | disposition home or self-care (01) ==
LOC: LAB.WCP 08:00
PROVIDERS: ATTEND Family Medicine
DX: N18.32 Chronic kidney disease, stage 3b (principal); Z79.01 Long term (current) use of anticoagulants
CPT/HCPCS: 36415; 80048

== ENCOUNTER 2020-08-14 08:00 | Outpatient (CLI) | payer MEDICARE, OTHER | END 2020-08-14 23:59 | disposition home or self-care (01) | LOC: LAB.WCP 08:00 | PROVIDERS: ATTEND Family Medicine | DX: Z79.01 Long term (current) use of anticoagulants (principal) ==

== ENCOUNTER 2020-09-25 08:00 | Outpatient (CLI) | payer MEDICARE, OTHER | END 2020-09-25 23:59 | disposition home or self-care (01) | LOC: LAB.WCP 08:00 | PROVIDERS: ATTEND Family Medicine | DX: Z79.01 Long term (current) use of anticoagulants (principal); I48.91 Unspecified atrial fibrillation ==

== ENCOUNTER 2020-10-23 08:00 | Outpatient (CLI) | payer MEDICARE, OTHER | END 2020-10-23 23:59 | disposition home or self-care (01) | LOC: LAB.WCP 08:00 | PROVIDERS: ATTEND Family Medicine | DX: I48.91 Unspecified atrial fibrillation (principal); Z79.01 Long term (current) use of anticoagulants ==

== ENCOUNTER 2020-11-20 08:00 | Outpatient (CLI) | payer MEDICARE, OTHER | END 2020-11-20 23:59 | disposition home or self-care (01) | LOC: LAB.WCP 08:00 | PROVIDERS: ATTEND Family Medicine | DX: Z79.01 Long term (current) use of anticoagulants (principal); I48.91 Unspecified atrial fibrillation ==

== ENCOUNTER 2020-12-05 09:29 | Outpatient (CLI) | payer MEDICARE, OTHER ==
--- NOTE | 2020-12-05 11:21 | CT Report ---
PROCEDURE: LUMBAR SPINE WO INDICATIONS: LUMBAR RADICULOPATHY TECHNIQUE: Noncontrast 3 mm thick sections acquired from the T12 level to the sacrum. Sagittal and coronal refo rmats were constructed. For radiation dose reduction, the following was used: automated exposure co ntrol, adjustment of mA and/or kV according to patient size. COMPARISON: None. FINDINGS: Image quality: Excellent. Bones: 5 lumbar type vertebral bodies are present by CT. There is mild, grade 1 anterolisthesis of L 4 on L5. No acute vertebral body compression fractures. No suspicious lytic or blastic bony lesions. Multilevel disc space narrowing and endplate osteophyte formation throughout the mid and lower lumba r spine. Facet hypertrophy throughout the mid and lower lumbar spine is present. No pars defects. T12-L1: Mild disc height loss and diffuse disc bulge. Mild facet hypertrophy. Mild canal stenosis. M ild left and moderate right foraminal stenosis. No significant change. L1-L2: Mild disc height loss and diffuse disc bulge. Mild facet hypertrophy bilaterally. Mild earlene l stenosis. Moderate bilateral foraminal stenosis. No significant change. L2-L3: Moderate disc height loss and desiccation. Mild diffuse disc bulge. Mild bilateral facet an d ligament flavum hypertrophy. Moderate canal stenosis. Moderate bilateral foraminal stenosis. No sig nificant change. L3-L4: Right hemilaminotomy Vacuum phenomenon within the disc space. Moderate disc height loss and desiccation. Moderate diffuse disc bulge. Moderate bilateral facet hypertrophy. Moderate canal stenos is. Severe bilateral foraminal stenosis with bilateral L3 nerve root compression. No significant huggins ge. L4-L5: Moderate disc height loss and desiccation. Mild diffuse disc bulge. Moderate bilateral facet hypertrophy. Severe canal stenosis. Moderate bilateral foraminal stenosis. No significant change. L5-S1: Mild disc height loss. Mild diffuse disc bulge. Mild bilateral facet hypertrophy. Mild canal stenosis. Moderate bilateral foraminal stenosis. No significant change. Soft tissues: No retroperitoneal masses or hematomas. Visualized aorta is normal in caliber. IMPRESSION: 1. Post surgical sequelae. 2. Multilevel degenerative disc and facet disease, in addition to epidural lipomatosis and ligamentum flavum hypertrophy. 3. Multilevel canal stenoses, worst at L4-L5 where there is severe canal stenosis. 4. Multilevel foraminal stenoses, worst at L3-L4 where there is associated intraforaminal nerve root compression. 5. Correlation with clinical symptoms, MRI or CT myelography is recommended for confirmation of findi ngs prior to any lumbar spinal intervention. Reviewed by: Jose Andersen MD on 12/05/2020 11:20 AM PDT Approved by: Jose Andersen MD on 12/05/2020 11:20 AM PDT Station ID: [id number]
== END 2020-12-05 09:30 | disposition home or self-care (01) ==
LOC: DI 09:29
PROVIDERS: ATTEND Family Medicine
DX: M47.815 Spondylosis without myelopathy or radiculopathy, thoracolumbar region (principal); M47.816 Spondylosis without myelopathy or radiculopathy, lumbar region; M47.817 Spondylosis without myelopathy or radiculopathy, lumbosacral region; M51.35 Other intervertebral disc degeneration, thoracolumbar region; M48.05 Spinal stenosis, thoracolumbar region; M51.36 Other intervertebral disc degeneration, lumbar region; M48.061 Spinal stenosis, lumbar region without neurogenic claudication; M51.37 Other intervertebral disc degeneration, lumbosacral region; M48.07 Spinal stenosis, lumbosacral region; E88.2 Lipomatosis, not elsewhere classified

== ENCOUNTER 2020-12-18 08:00 | Outpatient (CLI) | payer MEDICARE, OTHER | END 2020-12-18 23:59 | disposition home or self-care (01) | LOC: LAB.WCP 08:00 | PROVIDERS: ATTEND Family Medicine | DX: I48.91 Unspecified atrial fibrillation (principal); Z79.01 Long term (current) use of anticoagulants ==

== ENCOUNTER 2020-12-23 09:16 | Outpatient (CLI) | payer MEDICARE, OTHER | END 2020-12-23 09:17 | disposition home or self-care (01) | LOC: RT 09:16 | PROVIDERS: ATTEND Internal Medicine Cardiovascular Disease | DX: R06.02 Shortness of breath (principal); Z79.899 Other long term (current) drug therapy | CPT/HCPCS: 94010; 94727; 94729 ==

== ENCOUNTER 2021-01-15 08:00 | Outpatient (CLI) | payer MEDICARE, OTHER | END 2021-01-15 23:59 | disposition home or self-care (01) | LOC: LAB.WCP 08:00 | PROVIDERS: ATTEND Family Medicine | DX: Z79.01 Long term (current) use of anticoagulants (principal); I48.91 Unspecified atrial fibrillation ==

== ENCOUNTER 2021-01-21 07:43 | Outpatient (CLI) | payer MEDICARE, OTHER ==
[2021-01-21 08:12] LABS: BASOPHILS # (AUTO) 0.1 10^3/uL (0.0-0.1); BASOPHILS % (AUTO) 1.1 %; EOSINOPHILS # (AUTO) 0.2 10^3/uL (0.0-0.7); EOSINOPHILS % (AUTO) 3.7 %; HCT - HEMATOCRIT 40.2 % (42.0-52.0); HGB - HEMOGLOBIN 13.1 g/dL (14.0-18.0); LYMPHOCYTES % (AUTO) 18.1 %; MEAN CORPUSCULAR HEMOGLOBIN 32.2 pg (27.0-31.0); MEAN CORPUSCULAR HGB CONC 32.6 g/dL (32.0-36.0); MEAN CORPUSCULAR VOLUME 98.8 fL (80.0-94.0); MEAN PLATELET VOLUME 9.7 fL (7.4-11.4); MONOCYTES # (AUTO) 0.7 10^3/uL (0.0-1.0); MONOCYTES % (AUTO) 12.3 %; NEUTROPHILS # (AUTO) 3.7 10^3/uL (1.5-6.6); NEUTROPHILS % (AUTO) 64.3 %; PLT - PLATELET COUNT 146 10^3/uL (130-450); RED BLOOD COUNT 4.07 10^6/uL (4.70-6.10); RED CELL DISTRIBUTION WIDTH 14.9 % (12.0-15.0); WHITE BLOOD COUNT 5.7 x10^3/uL (4.8-10.8)
[2021-01-21 08:20] LABS: CALCIUM 9.5 mg/dL (8.5-10.3); CREATININE 1.8 mg/dL (0.6-1.2); POTASSIUM 5.4 mmol/L (3.5-5.0)
== END 2021-01-21 07:44 | disposition home or self-care (01) ==
LOC: LAB 07:43
PROVIDERS: ATTEND Family Medicine
DX: I12.9 Hypertensive chronic kidney disease with stage 1 through stage 4 chronic kidney disease, or unspecified chronic kidney disease (principal); N18.32 Chronic kidney disease, stage 3b; M54.16 Radiculopathy, lumbar region; Z79.01 Long term (current) use of anticoagulants
CPT/HCPCS: 36415; 80048; 85025

== ENCOUNTER 2021-01-24 07:33 | Outpatient (CLI) | payer MEDICARE, OTHER ==
[2021-01-24 07:55] LABS: CALCIUM 9.2 mg/dL (8.5-10.3); CREATININE 1.8 mg/dL (0.6-1.2); POTASSIUM 5.1 mmol/L (3.5-5.0)
== END 2021-01-24 07:34 | disposition home or self-care (01) ==
LOC: LAB 07:33
PROVIDERS: ATTEND Internal Medicine Cardiovascular Disease
DX: I10 Essential (primary) hypertension (principal)
CPT/HCPCS: 36415; 80048

== ENCOUNTER 2021-02-14 08:00 | Outpatient (CLI) | payer MEDICARE, OTHER | END 2021-02-14 23:59 | disposition home or self-care (01) | LOC: LAB.WCP 08:00 | PROVIDERS: ATTEND Family Medicine | DX: I48.91 Unspecified atrial fibrillation (principal); Z79.01 Long term (current) use of anticoagulants ==

== ENCOUNTER 2021-02-28 08:00 | Outpatient (CLI) | payer MEDICARE, OTHER | END 2021-02-28 23:59 | disposition home or self-care (01) | LOC: LAB.WCP 08:00 | PROVIDERS: ATTEND Family Medicine | DX: Z79.01 Long term (current) use of anticoagulants (principal) ==

== ENCOUNTER 2021-03-06 09:53 | Outpatient (CLI) | payer MEDICARE, OTHER ==
[2021-03-06 10:38] VITALS: BP 135/52
--- NOTE | 2021-03-06 10:38 | SLEEP CARE CONSULTATION ---
Information from patient questionnaire entered by Rochelle Rojas. I have reviewed and concur with the information entered by Rochelle Rojas. This document represents the service I personally performed and the decisions made by me, Lalita Trammell ARNP. History of Present Illness Service Date and Time: 03/06/2021 0953 Previous diagnosis: Severe, Central Sleep Apnea-Hypopnea Syndrome AHI: 46.7 (in 2012) Reason for follow up: annual Equipment type: BiPAP Equipment obtained from: [facility] (getting supplies as needed) Mask style: Nasal pillows (pilaro) Backup mask available: Yes (old mask) Last cushion change: 1 week Prior sleep studies: Yes Year and Where: 2012 [facility] Type of Sleep Study: Polysomnography HPI additional information: LANE LONG was diagnosed to have severe, AHI 46.7, central sleep apnea-hypopnea syndrome and returned today for BIPAP therapy annual follow-up. Sleep Study - Results Prior sleep studies: Yes Year and Where: 2012 [facility] CPAP Compliance Data - Data Reviewed with Patient Average duration of nightly device use: 8 hours 50 minutes Compliance rate %: 98.9 Current pressure setting (cmH2O): 12/7 Humidity settin Heated hose settin Average residual AHI: 2.4 Average large leak: 1 minute 58 seconds Subjective Patient concerns: reports: dry mouth, nose, throat (sometimes, little bit). denies: aerophagia, mask discomfort, air blowing in eyes, mask leak noise, condensation in mask/hose, nasal congestion, epistaxis, other Observed to snore while using device: No Current pressure setting perceived as: comfortable On therapy, patient: reports: sleeping better, awakening more refreshed, being more awake and alert during the day, more rested overall. denies: drowsiness while driving Initial [place] Sleepiness Scale score: 11 (in 2013) Current [place] Sleepiness Scale score: 10 Allergies and Home Medications Home medication list reviewed: Yes (no changes) Review of Systems Review of systems same as previous: Yes (no changes) Physical Exam Blood Pressure: 135/52 Cuff size: wrist Heart Rate: 70 O2 Saturation: 98 Height: 6 ft Weight: 188 lb Body Mass Index: 25.4 BMI Classification: Overweight Impression and Plan 1. Central Sleep Apnea-Hypopnea Syndrome, severe, with good treatment compliance and good apnea control. On BIPAP therapy, the patient has better sleep quality and is more rested overall. Patient is very satisfied with his current BIPAP therapy and pressure settings are comfortable. No changes needed today. Patient has not concerns or issues with using the BIPAP. Patient has heard something about the recall and comes in for further information. We discussed the particulars of the recall and his device in particular that may be on the recall. Patient was encouraged to register their device online with [employer] for the recall to see if their device is affected. If their device is affected they should start a claim. Patient denies any black particles seen in machine or hoses, any unusual odors coming from device. Patient has not experienced any physical symptoms such as upper airway irritation, headache, skin or eye irritation, asthma, nausea/vomiting, difficulty breathing or chest pain. Since the patients current machine is at least 5 years old the patient is opting to update their device with a device that is not on the recall. Patient informed follow-up needed after he obtains his new device. Patient voiced understanding and agreement with plan. Patient has not lost or gained any weight since his last visit. He was encouraged to try to lose weight to reduce apneas and improve his overall health. Patient's apnea severity and rationale for treatment to reduce apnea, improve sleep quality and reduce cardiovascular and cerebrovascular events was reviewed. I also reviewed the benefit of consistent device use of BIPAP for hypertension and arrhythmia. * Continue BIPAP pressure at 12/7 cmH2O * Update device * Update supplies as needed * Notify me if snoring with mask or feeling that the pressure is too much or too little * Attempt to lose weight * Call this office if any problems using BIPAP * Return for follow up one month after obtaining new device, or sooner if concerns arise Counseling Topics: Spare mask, Weight loss health impact Visit Type: In Office Time Spent with Patient (minutes): 20 Provider Statement: I spent 100% of the Face to Face Visit with the patient with greater than 50% spent counseling the patient and coordination of care.
== END 2021-03-06 09:54 | disposition home or self-care (01) ==
LOC: SC 09:53
PROVIDERS: ATTEND Nurse Practitioner Family
DX: G47.31 Primary central sleep apnea (principal)
CPT/HCPCS: 99213; G0463; 99212

== ENCOUNTER 2021-03-21 08:00 | Outpatient (CLI) | payer MEDICARE, OTHER | END 2021-03-21 23:59 | disposition home or self-care (01) | LOC: LAB.WCP 08:00 | PROVIDERS: ATTEND Family Medicine | DX: Z79.01 Long term (current) use of anticoagulants (principal); I48.91 Unspecified atrial fibrillation ==

== ENCOUNTER 2021-04-21 08:00 | Outpatient (CLI) | payer MEDICARE, OTHER | END 2021-04-21 23:59 | disposition home or self-care (01) | LOC: LAB.WCP 08:00 | PROVIDERS: ATTEND Family Medicine | DX: I48.91 Unspecified atrial fibrillation (principal); Z79.01 Long term (current) use of anticoagulants ==

== ENCOUNTER 2021-04-28 08:03 | Outpatient (CLI) | payer MEDICARE, OTHER ==
[2021-04-28 08:42] LABS: ALBUMIN 4.2 g/dL (3.2-5.5); ALBUMIN/GLOBULIN RATIO 1.6 (1.0-2.2); ALKALINE PHOSPHATASE 89 IU/L (42-121); ALT ALANINE AMINOTRANSFERASE 23 IU/L (10-60); AST ASPARTATE AMINOTRANSFERASE 34 IU/L (10-42); BILIRUBIN,TOTAL 0.7 mg/dL (0.2-1.0); BUN - BLOOD UREA NITROGEN 29 mg/dL (6-20); CALCIUM 9.1 mg/dL (8.5-10.3); CARBON DIOXIDE - CO2 29 mmol/L (21-32); CHLORIDE 101 mmol/L (101-111); CHOL/HDL RATIO 2.4 (<5.0); CHOLESTEROL 200 mg/dL; CREATININE 1.5 mg/dL (0.6-1.2); GFR - MDRD 45 (>89); GLUCOSE 108 mg/dL (70-100); HDL CHOLESTEROL 83 mg/dL; LDL CHOLESTEROL,CALCULATED 104 mg/dL; LDL/HDL RATIO 1.3 (<3.6); POTASSIUM 4.6 mmol/L (3.5-5.0); SODIUM 138 mmol/L (135-145); TOTAL PROTEIN 6.8 g/dL (6.7-8.2); TRIGLYCERIDES 65 mg/dL; VLDL CHOLESTEROL 13 mg/dL
== END 2021-04-28 08:04 | disposition home or self-care (01) ==
LOC: LAB 08:03
PROVIDERS: ATTEND Internal Medicine Cardiovascular Disease
DX: E78.5 Hyperlipidemia, unspecified (principal); Z79.899 Other long term (current) drug therapy
CPT/HCPCS: 36415; 80053; 80061; 83721; 84443

== ENCOUNTER 2021-05-05 08:00 | Outpatient (CLI) | payer MEDICARE, OTHER | END 2021-05-05 23:59 | disposition home or self-care (01) | LOC: LAB.N 08:00 | PROVIDERS: ATTEND Family Medicine | DX: I48.91 Unspecified atrial fibrillation (principal); Z79.01 Long term (current) use of anticoagulants ==

== ENCOUNTER 2021-05-27 15:50 | Outpatient (CLI) | payer MEDICARE, OTHER ==
[2021-05-27 16:22] VITALS: BP 169/78
--- NOTE | 2021-05-27 16:22 | SLEEP CARE CONSULTATION ---
Information from patient questionnaire entered by Steven Womack MA. I have reviewed and concur with the information entered by Steven Womack MA. This document represents the service I personally performed and the decisions made by , Lalita Trammell ARNP. History of Present Illness Service Date and Time: 05/27/2021 1550 Previous diagnosis: Severe, Central Sleep Apnea-Hypopnea Syndrome AHI: 46.7 (in 2012) Reason for follow up: first compliance (REPL DEV, 04/09 RESMED) Equipment type: BiPAP Equipment obtained from: Other ([facility] : getting supplies as needed) Mask style: Nasal pillows (pilaro) Backup mask available: Yes (old mask) Prior sleep studies: Yes Year and Where: 2012 [facility] Type of Sleep Study: Polysomnography HPI additional information: L[address] [place] was diagnosed to have severe, AHI 46.7, central sleep apnea-hypopnea syndrome and returned today for BIPAP therapy [first compliance after updating device] follow-up. Sleep Study - Results Type of Sleep Study: Polysomnography Prior sleep studies: Yes Year and Where: 2012 [facility] CPAP Compliance Data - Data Reviewed with Patient Average duration of nightly device use: 8 HOURS 37 MINUTES Compliance rate %: 100 Current pressure setting (cmH2O): 12/ Heated hose settin Average residual AHI: 5.1 Subjective Missed days of use due to: reports: other (POWER OUTAGE) Patient concerns: reports: dry mouth, nose, throat (very little, occasional). denies: aerophagia, mask discomfort, air blowing in eyes, mask leak noise, condensation in mask/hose, nasal congestion, epistaxis, other Observed to snore while using device: No Current pressure setting perceived as: comfortable On therapy, patient: reports: sleeping better, awakening more refreshed, being more awake and alert during the day, more rested overall. denies: drowsiness while driving Initial [place] Sleepiness Scale score: 11 (in 2012) Current [place] Sleepiness Scale score: 6 (2021) Allergies and Home Medications Known drug allergies: No Drug allergies reviewed: Yes Home medication list reviewed: Yes (no changes) Review of Systems Review of systems same as previous: Yes (no changes) Physical Exam Vital signs obtained and entered by: Feliciano WOMACK CMA AANJ Blood Pressure: 169/78 (RIGHT) Cuff size: wrist Heart Rate: 70 O2 Saturation: 97 (PAPER MASK) Height: 6 ft Weight: 185 lb (WITH CLOTHES PER PT) Weight change since last visit: 3 lb loss Body Mass Index: 25.0 BMI Classification: Overweight Impression and Plan 1. Central Sleep Apnea-Hypopnea Syndrome, severe, with good treatment compliance and good apnea control. On BIPAP therapy, the patient has better sleep quality and is more rested overall. He has been liking the new device except for how the water chamber is harder to fill. He has very little dry mouth and is using a nasal mask. Patient's apnea severity and rationale for treatment to reduce apnea, improve sleep quality and reduce cardiovascular and cerebrovascular events was reviewed. I also reviewed the benefit of consistent device use of BIPAP for hypertension and arrhythmia. Patient has lost about 3 pounds. He was encouraged to continue to try to lose weight. * Continue BIPAP pressure at 12/7 cmH2O * Notify me if snoring with mask or feeling that the pressure is too much or too little * Continue to try to lose weight * Call this office if any problems using BIPAP * Return for follow up in 1 year, or sooner if concerns arise Counseling Topics: Spare mask, Weight loss health impact Visit Type: In Office Time Spent with Patient (minutes): 21 Provider Statement: I spent 100% of the Face to Face Visit with the patient with greater than 50% spent counseling the patient and coordination of care.
== END 2021-05-27 15:51 | disposition home or self-care (01) ==
LOC: SC 15:50
PROVIDERS: ATTEND Nurse Practitioner Family
DX: G47.31 Primary central sleep apnea (principal)
CPT/HCPCS: 99213; G0463; 99212

== ENCOUNTER 2021-08-12 12:25 | Outpatient (CLI) | payer MEDICARE, OTHER ==
[2021-08-12 12:58] LABS: ALBUMIN/GLOBULIN RATIO 1.5 (1.0-2.2); ALKALINE PHOSPHATASE 85 IU/L (42-121); ALT ALANINE AMINOTRANSFERASE 22 IU/L (10-60); AST ASPARTATE AMINOTRANSFERASE 26 IU/L (10-42); BUN - BLOOD UREA NITROGEN 27 mg/dL (6-20); CALCIUM 9.3 mg/dL (8.5-10.3); CARBON DIOXIDE - CO2 28 mmol/L (21-32); CHLORIDE 98 mmol/L (101-111); CHOL/HDL RATIO 2.1 (<5.0); CHOLESTEROL 178 mg/dL; CREATININE 1.6 mg/dL (0.6-1.2); GFR - MDRD 41 (>89); GLUCOSE 199 mg/dL (70-100); HDL CHOLESTEROL 85 mg/dL; LDL CHOLESTEROL,CALCULATED 82 mg/dL; POTASSIUM 4.5 mmol/L (3.5-5.0); SODIUM 135 mmol/L (135-145); TOTAL PROTEIN 6.7 g/dL (6.7-8.2); TRIGLYCERIDES 57 mg/dL; VLDL CHOLESTEROL 11 mg/dL
[2021-08-12 13:08] LABS: THYROID STIMULATING HORMONE 0.68 uIU/mL (0.34-5.60)
== END 2021-08-12 12:26 | disposition home or self-care (01) ==
LOC: LAB 12:25
PROVIDERS: ATTEND Internal Medicine
DX: I12.9 Hypertensive chronic kidney disease with stage 1 through stage 4 chronic kidney disease, or unspecified chronic kidney disease (principal); N18.32 Chronic kidney disease, stage 3b; R19.4 Change in bowel habit
CPT/HCPCS: 36415; 80053; 80061; 83721; 84443

== ENCOUNTER 2021-10-07 06:55 | Outpatient (CLI) | payer MEDICARE, OTHER ==
[2021-10-07 07:10] LABS: BASOPHILS # (AUTO) 0.1 10^3/uL (0.0-0.1); BASOPHILS % (AUTO) 0.9 %; EOSINOPHILS # (AUTO) 0.2 10^3/uL (0.0-0.7); EOSINOPHILS % (AUTO) 2.8 %; HCT - HEMATOCRIT 42.1 % (42.0-52.0); HGB - HEMOGLOBIN 13.9 g/dL (14.0-18.0); LYMPHOCYTES # (AUTO) 1.1 10^3/uL (1.5-3.5); LYMPHOCYTES % (AUTO) 18.7 %; MEAN CORPUSCULAR HEMOGLOBIN 32.6 pg (27.0-31.0); MEAN CORPUSCULAR VOLUME 98.6 fL (80.0-94.0); MONOCYTES # (AUTO) 0.8 10^3/uL (0.0-1.0); MONOCYTES % (AUTO) 13.1 %; NEUTROPHILS # (AUTO) 3.7 10^3/uL (1.5-6.6); PLT - PLATELET COUNT 160 10^3/uL (130-450); RED BLOOD COUNT 4.27 10^6/uL (4.70-6.10); RED CELL DISTRIBUTION WIDTH 14.6 % (12.0-15.0); WHITE BLOOD COUNT 5.8 x10^3/uL (4.8-10.8)
[2021-10-07 07:22] LABS: ALBUMIN 3.9 g/dL (3.2-5.5); ALBUMIN/GLOBULIN RATIO 1.4 (1.0-2.2); CALCIUM 9.3 mg/dL (8.5-10.3); CREATININE 1.7 mg/dL (0.6-1.2); POTASSIUM 5.1 mmol/L (3.5-5.0); TOTAL PROTEIN 6.7 g/dL (6.7-8.2)
== END 2021-10-07 06:56 | disposition home or self-care (01) ==
LOC: LAB 06:55
PROVIDERS: ATTEND Nurse Practitioner Acute Care
DX: I47.2 Ventricular tachycardia (principal)
CPT/HCPCS: 36415; 80053; 85025

== ENCOUNTER 2021-10-10 07:47 | Day surgery (SDC) | payer MEDICARE, OTHER ==
[2021-10-10] MEDS ORDERED: LACTATED RINGERS 1,000 ML IV ONE ×2 (07:52→10:10)
--- NOTE | 2021-10-10 08:43 | ANESTHESIA ---
Pre-Anesthesia VS, & Labs - Diagnosis positive cologuard - Procedure colonoscopy Vital Signs: Temp Pulse Resp BP Pulse Ox 36.7 C 70 16 165/85 H 100 10/10/21 08:16 10/10/21 08:16 10/10/21 08:16 10/10/21 08:16 10/10/21 08:16 Height: 6 ft Weight (kg): 84.7 kg Body Mass Index: 25.3 BMI Classification: Overweight - NPO >8 hours Home Medications and Allergies Home Medications: Ambulatory Orders Amiodarone [Pacerone] 200 mg PO BID 10/10/21 Apixaban [Eliquis] 2.5 mg PO BID 10/10/21 Atorvastatin [Lipitor] 20 mg PO DAILY PM 10/12/18 Finasteride 5 mg PO DAILY PM 10/12/18 Ipratropium [Atrovent] 2 puffs INH TID 10/12/18 Metoprolol Succinate [Kapspargo Sprinkle] 25 mg PO DAILY 10/12/18 Tamsulosin [Flomax] 0.4 mg PO DAILY PM 10/12/18 traMADol [Ultram] 50 mg PO PRN PRN 10/12/18 Acetaminophen [Acetaminophen ER] 650 mg PO PRN PRN 01/24/19 Metoprolol Succinate [Toprol Xl] 50 mg PO DAILY PM 01/24/19 Amiodarone [Pacerone] 200 mg PO BID 10/10/21 Apixaban [Eliquis] 2.5 mg PO BID 10/10/21 Allergies/Adverse Reactions: Allergies Allergy/AdvReac Type Severity Reaction Status Date / Time No Known Drug Allergies Allergy Verified 01/24/19 17:02 Anes History & Medical History - Anesthetic History Anesthesia Complications: reports: No previous complications - Medical History Cardiovascular: reports: Hypertension, High cholesterol, Atrial fibrillation Pulmonary: reports: Sleep apnea, CPAP use Gastrointestinal: reports: None Urinary: reports: None Neuro: reports: None Musculoskeletal: reports: Osteoarthritis Endocrine/Autoimmune: reports: None Blood Disorders: reports: None Skin: reports: None Smoking Status: Former smoker (quit 40 years ago) Psychosocial: reports: Alcohol (mixed drink and wine daily) History of Cancer?: No - Surgical History Cardiothoracic: reports: Pacemaker Orthopedic: reports: Spine surgery Exam General: Alert, Oriented x3, Cooperative, No acute distress Dental: WNL Mouth Openin Fingerbreadth Neck Mobility: Normal Mallampati classification: IV Thyromental Distance: 4-6 cm Mental/Cognitive Status: Alert/Oriented X3, Normal for patient Plan Anesthesia Type: General, Total IV Consent for Procedure(s) Verified and Reviewed: Yes Code Status: Attempt Resuscitation ASA classification: 3-Severe systemic disease Is this case an emergency?: No
[2021-10-10] MEDS ORDERED: PROPOFOL 500 MG/50 ML 500 MG/50 ML VIAL ONE (09:00)
--- NOTE | 2021-10-10 09:32 | HISTORY & PHYSICAL EXAMINATION ---
Chief Complaint - Chief Complaint Chief Complaint: here for colon cancer screening History of Present Illness - History Obtained From Records Reviewed: yes History obtained from: pt Exam Limitations: none - History of Present Illness HPI Comment/Other: positive cologuard. no symptoms or problems History - Past Medical History Cardiovascular: reports: Hypertension, High cholesterol, Atrial fibrillation Respiratory: reports: Sleep apnea, CPAP use Neuro: reports: None Endocrine/Autoimmune: reports: None GI: reports: None : reports: None HEENT: reports: Chronic hearing loss Psych: reports: None Musculoskeletal: reports: Osteoarthritis Derm: reports: None MRSA Hx?: No - Past Surgical History Ortho: reports: Spine surgery Cardiovascular: reports: Pacemaker - Family & Social History Family History Comment/Other: He reports his father from heart disease when the patient was a child. He has a brother who had Hogkin's. His mot her has diabetes. He reports no other family history. Social History Notes: He has lived on [facility] for the past 20 years with his . 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 He smoked a pack a year for 20 years but quite in 1974. He drinks one glass of wine a day. - Substance History Use: Uses substance without health or social issues: Alcohol Meds/Allgy - Home Medications Home Medications: Ambulatory Orders Medication Instructions Recorded Confirmed Atorvastatin [Lipitor] 20 mg PO DAILY PM 10/12/18 10/10/21 Finasteride 5 mg PO DAILY PM 10/12/18 10/10/21 Ipratropium [Atrovent] 2 puffs INH TID 10/12/18 10/10/21 Metoprolol Succinate [Kapspargo 25 mg PO DAILY 10/12/18 10/10/21 Sprinkle] Tamsulosin [Flomax] 0.4 mg PO DAILY PM 10/12/18 10/10/21 traMADol [Ultram] 50 mg PO PRN PRN 10/12/18 10/10/21 Acetaminophen [Acetaminophen ER] 650 mg PO PRN PRN 01/24/19 10/10/21 Metoprolol Succinate [Toprol Xl] 50 mg PO DAILY PM 01/24/19 10/10/21 Amiodarone [Pacerone] 200 mg PO BID 10/10/21 10/10/21 Apixaban [Eliquis] 2.5 mg PO BID 10/10/21 10/10/21 - Allergies Allergies/Adverse Reactions: Allergies Allergy/AdvReac Type Severity Reaction Status Date / Time No Known Drug Allergies Allergy Verified 01/24/19 17:02 Review of Systems - Other Findings Other Findings: 10 pt ros as above otherwise unremarkable Exam - Vital Signs Vital Signs: Vital Signs x48h Temp Pulse Resp BP Pulse Ox 10/10/21 08:16 36.7 C 70 16 165/85 H 100 - Physical Exam General Appearance: positive: No acute distress, Alert Eyes Bilateral: positive: PERRL, EOMI ENT: positive: No signs of dehydration Neck: positive: No JVD Respiratory: positive: No respiratory distress, Breath sounds nml Cardiovascular: positive: Irregularly irregular Abdomen: positive: Non-tender, No distention Neurologic/Psychiatric: positive: Oriented x3 Conclusion/Plan - Problem List (1) Abnormal stool test Conclusion/Plan: positive cologuard. plan colonoscopy. parq held and consent obtained
[2021-10-10 10:39] VITALS: BP 133/77
--- NOTE | 2021-10-10 10:52 | ANESTHESIA POST OP EVALUATION ---
Anesthesia Post Eval - Post Anesthesia Eval Vitals: Last Vital Signs Temp 36.5 C 10/10/21 10:37 Pulse 70 10/10/21 10:37 Resp 18 10/10/21 10:37 BP 133/77 H 10/10/21 10:37 Pulse Ox 99 10/10/21 10:37 CV Function Including HR & BP: Stable Pain Control: Satisfactory Nausea & Vomiting: Negative Mental Status: Baseline Respiratory Status: Airway Patent Hydration Status: Satisfactory Anesthesia Complications: None
== END 2021-10-10 07:48 | disposition home or self-care (01) ==
LOC: SDS 07:47
PROVIDERS: ATTEND Surgery
DX: R19.5 Other fecal abnormalities (principal); I12.9 Hypertensive chronic kidney disease with stage 1 through stage 4 chronic kidney disease, or unspecified chronic kidney disease; N18.32 Chronic kidney disease, stage 3b; Z79.01 Long term (current) use of anticoagulants; I48.91 Unspecified atrial fibrillation; G47.30 Sleep apnea, unspecified
CPT/HCPCS: 45378; J7120

== ENCOUNTER 2021-11-19 08:39 | Outpatient (CLI) | payer MEDICARE, OTHER ==
[2021-11-19 09:02] LABS: CALCIUM 9.4 mg/dL (8.5-10.3); POTASSIUM 5.1 mmol/L (3.5-5.0)
== END 2021-11-19 08:40 | disposition home or self-care (01) ==
LOC: LAB 08:39
PROVIDERS: ATTEND Nurse Practitioner Family
DX: I27.20 Pulmonary hypertension, unspecified (principal)
CPT/HCPCS: 36415; 80048

== ENCOUNTER 2022-05-06 10:08 | Emergency (ER) | payer MEDICARE, OTHER ==
--- NOTE | 2022-05-06 10:20 | ED Physician Documentation ---
PD HPI ALTERED MENTAL STATUS - Stated complaint Stated Complaint: DIFFICULTY SPEAKING - History obtained from History obtained from: Patient, EMS - History of Present Illness Timing - onset: How many hours ago (2) Timing - duration: Hours (2) Timing - details: Abrupt onset, Now resolved Quality / character: Other (He states he was walking to his computer room using walker and did okay with that. Then sat at desk and started using his mouse, but hand was weak and fumbly. He felt he was unable to think of words clearly. He tried talking but could not find simple words/sentence structure. Lasted about 15 min.) Associated symptoms: No: Fever, Headache, Dyspnea, Cough, NVD Contributing factors: Anticoagulated (was on DOAC, but due to cost, is switching to coumadin. He stopped DOAC 3 days ago and has taken Coumadin the past 3 days.). No: Recent med change, Recent illness Basline status: Alert and oriented X 3, Ambulatory, Cane, Walker Similar symptoms before: Has not had sx before Recently seen: Clinic (seen routine visit at [facility] and changed anticoagulants due to cost.) Review of Systems Constitutional: denies: Fever, Chills Nose: denies: Rhinorrhea / runny nose, Congestion Throat: denies: Sore throat Cardiac: denies: Chest pain / pressure, Palpitations Respiratory: denies: Dyspnea, Cough GI: denies: Abdominal Pain, Nausea, Vomiting Neurologic: denies: Generalized weakness, Near syncope, Headache, Head injury PD PAST MEDICAL HISTORY - Past Medical History Cardiovascular: Hypertension, High cholesterol, Atrial fibrillation Respiratory: Sleep apnea, CPAP use Neuro: None Endocrine/Autoimmune: None GI: None : None HEENT: Chronic hearing loss Psych: None Musculoskeletal: Osteoarthritis Derm: None - Past Surgical History Past Surgical History: Yes Ortho: Spine surgery Cardiovascular: Pacemaker - Present Medications Home Medications: Ambulatory Orders Medication Instructions Recorded Confirmed Atorvastatin [Lipitor] 20 mg PO DAILY PM 10/12/18 10/10/21 Finasteride 5 mg PO DAILY PM 10/12/18 10/10/21 Ipratropium [Atrovent] 2 puffs INH TID 10/12/18 10/10/21 Metoprolol Succinate [Kapspargo 25 mg PO DAILY 10/12/18 10/10/21 Sprinkle] Tamsulosin [Flomax] 0.4 mg PO DAILY PM 10/12/18 10/10/21 traMADol [Ultram] 50 mg PO PRN PRN 10/12/18 10/10/21 Acetaminophen [Acetaminophen ER] 650 mg PO PRN PRN 01/24/19 10/10/21 Metoprolol Succinate [Toprol Xl] 50 mg PO DAILY PM 01/24/19 10/10/21 Amiodarone [Pacerone] 200 mg PO BID 10/10/21 10/10/21 Apixaban [Eliquis] 2.5 mg PO BID 10/10/21 10/10/21 - Allergies Allergies/Adverse Reactions: Allergies Allergy/AdvReac Type Severity Reaction Status Date / Time No Known Drug Allergies Allergy Verified 05/06/22 10:19 - Social History Does the pt smoke?: No Smoking Status: Former smoker (quit 40 years ago) Does the pt drink ETOH?: Yes Does the pt have substance abuse?: No PD ED PE NORMAL - Vitals Vital signs reviewed: Yes - General General: Alert and oriented X 3, No acute distress, Well developed/nourished - HEENT HEENT: Atraumatic, PERRL, EOMI - Neck Neck: Supple, no meningeal sign, No adenopathy - Cardiac Cardiac: RRR (regular. Pacemaker noted left chest wall without redness/tenderness. 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, No motor deficit, No sensory deficit, Normal speech NIHSS - Level of Consciousness Level of consciousness: (0) Alert, Keenly responsive LOC Questions: (0) Answers both Q's correct LOC Commands: (0) Performs both correctly - Gaze Best Gaze: (0) Normal - Visual Visual: (0) No loss - Facial Palsy Facial Palsy: (0) Normal, symmetrical movement - Motor Arms (both separate) Motor Arm (right): (0) No drift Motor Arm (left): (0) No drift - Motor Legs (both separate) Motor Leg (right): (0) No drift Motor Leg (left): (0) No drift - Limb Ataxia Limb Ataxia: (0) Absent - Sensory Sensory: (0) Normal - Best Language Best Language: (0) No aphasia - Dysarthria Dysarthria: (0) Normal - Extinction and Inattention (formally neg Extinction and inattention: (0) No abnormality - Total Score/Results Total Score/Result: 0 Results - Vitals Vitals: Vital Signs - 24 hr 05/06/22 05/06/22 05/06/22 10:19 11:06 13:04 Temperature 36.4 C L Heart Rate 70 70 70 Respiratory 19 28 H 18 Rate Blood Pressure 194/103 H 187/94 H 185/98 H O2 Saturation 99 100 98 Oxygen O2 Source Room air - Labs Labs: Laboratory Tests 05/06/22 05/06/22 05/06/22 10:43 10:43 10:43 WBC 5.2 RBC 4.29 L Hgb 13.7 L Hct 40.8 L MCV 95.1 H MCH 31.9 H MCHC 33.6 RDW 13.1 Plt Count 144 MPV 9.9 Neut # (Auto) 3.2 Lymph # (Auto) 1.2 L [place] # (Auto) 0.6 Eos # (Auto) 0.2 Baso # (Auto) 0.0 Absolute Nucleated RBC 0.00 Nucleated RBC % 0.0 PT 14.2 H INR 1.3 H Sodium 135 Potassium 4.3 Chloride 105 Carbon Dioxide 23 Anion Gap 7.0 BUN 22 H Creatinine 1.3 H Estimated GFR (MDRD) 52 L Glucose 98 Calcium 9.3 Magnesium 1.7 Total Bilirubin 1.3 H AST 25 ALT 19 Alkaline Phosphatase 89 Total Protein 6.6 L Albumin 4.0 Globulin 2.6 Albumin/Globulin Ratio 1.5 Lipase 39 - Rads (name of study) head/neck CTA Radiology: Prelim report reviewed (no bleed nor acute structural changes. no LVO nor critical stenoses. ), See rad report PD MEDICAL DECISION MAKING - ED course Complexity details: reviewed results, considered differential (sounds like tia symptoms. He had switched anticoag and so that may have allowed a window for hypercoag. Symptoms resolved and no LVO on CTA. So continue with anticoag. gave Lovenox to bridge anticoag as the Coumadin becomes more effective.), d/w patient Departure - Departure Disposition: 01 Home, Self Care Clinical Impression: TIA (transient ischemic attack), Subtherapeutic international normalized ratio (INR) Condition: Stable Record reviewed to determine appropriate education?: Yes Instructions: ED Transient Ischemic Attack Comments: I presume you are difficulty with use of the hand and some speech problems relate to transient alteration of blood flow to part of the brain (TIA equals transient ischemic attack). Your CT scan does not show any signs of bleeding, masses, swelling or obvious areas of lacking blood flow. The dye portion of it did not show any hemodynamically significant blockages that would need intervention. At this point we would have you continue with your blood thinner and hopes of that keeping further episodes from happening. Your Coumadin level was slightly low with an INR of 1.3. That could have provided an opportunity for mild clotting. We did give you an injection of another blood thinner called Lovenox that will last for a day while your Coumadin level is becoming more therapeutic. Continue with the Coumadin dosing you have been directed with initiating the C oumadin. It should be more effective within the next day or 2. Follow-up with your primary care. Your blood pressure was elevated here today but I presume that is more reactive to the situation. Check it over the next several days to week and see if it maintains being high or goes back to normal. Discharge Date/Time: 05/06/22 13:52
[2022-05-06] MEDS ORDERED: HYDROmorphone 0.5 MG/0.5 ML SYRINGE IVP STA (10:33)
[2022-05-06] MEDS ORDERED: KETOROLAC 15 MG/ML VIAL IVP STA (10:33)
[2022-05-06 10:49] LABS: BASOPHILS % (AUTO) 0.8 %; EOSINOPHILS # (AUTO) 0.2 10^3/uL (0.0-0.7); EOSINOPHILS % (AUTO) 2.9 %; HCT - HEMATOCRIT 40.8 % (42.0-52.0); HGB - HEMOGLOBIN 13.7 g/dL (14.0-18.0); LYMPHOCYTES # (AUTO) 1.2 10^3/uL (1.5-3.5); LYMPHOCYTES % (AUTO) 22.9 %; MEAN CORPUSCULAR HEMOGLOBIN 31.9 pg (27.0-31.0); MEAN CORPUSCULAR HGB CONC 33.6 g/dL (32.0-36.0); MEAN CORPUSCULAR VOLUME 95.1 fL (80.0-94.0); MEAN PLATELET VOLUME 9.9 fL (7.4-11.4); MONOCYTES # (AUTO) 0.6 10^3/uL (0.0-1.0); MONOCYTES % (AUTO) 11.4 %; NEUTROPHILS # (AUTO) 3.2 10^3/uL (1.5-6.6); PLT - PLATELET COUNT 144 10^3/uL (130-450); RED BLOOD COUNT 4.29 10^6/uL (4.70-6.10); RED CELL DISTRIBUTION WIDTH 13.1 % (12.0-15.0); WHITE BLOOD COUNT 5.2 x10^3/uL (4.8-10.8)
[2022-05-06 10:55] LABS: INR 1.3 (0.8-1.2); PT - PROTHROMBIN TIME 14.2 secs (9.9-12.6)
[2022-05-06 11:01] LABS: ALBUMIN/GLOBULIN RATIO 1.5 (1.0-2.2); BILIRUBIN,TOTAL 1.3 mg/dL (0.2-1.0); CALCIUM 9.3 mg/dL (8.5-10.3); CREATININE 1.3 mg/dL (0.6-1.2); MAGNESIUM 1.7 mg/dL (1.7-2.8); POTASSIUM 4.3 mmol/L (3.5-5.0); TOTAL PROTEIN 6.6 g/dL (6.7-8.2)
[2022-05-06] MEDS ORDERED: iohexoL-300 100 ML VIAL ONE (11:10)
--- NOTE | 2022-05-06 12:44 | CT Report ---
PROCEDURE: ANGIO HEAD W/WO INDICATIONS: L sided facial droop CONTRAST: 80ml Omnipaque 300 TECHNIQUE: Precontrast 4.5 mm thick angled axial sections acquired from the foramen magnum to the vertex. Afte r the administration of intravenous contrast, 1 mm thick sections acquired through the [place] of [place] is. Postcontrast 4.5 mm thick sections then re-acquired from the foramen magnum to the vertex. 3-di mensional tdwrvta-uyiiofdil-ecawnmkgck (MIP) and/or volume rendering reformats were acquired of the c entral intracranial vasculature. For radiation dose reduction, the following was used: automated ex posure control, adjustment of mA and/or kV according to patient size. COMPARISON: None. FINDINGS: Image quality: Excellent. Anterior circulation: Intracranial internal carotid arteries demonstrated mild atherosclerotic calci fications without significant stenosis.. The flow within the paired anterior cerebral arteries is no rmal and symmetric. The flow within the middle cerebral arteries is normal and symmetric. The anter ior communicating artery is seen. No aneurysms are seen. Posterior circulation: Visualized portions of the vertebral arteries demonstrate normal caliber, and join to form a normal appearing basilar artery. Flow within the posterior cerebral arteries is norm al and symmetric. No aneurysms are seen. CSF spaces: Ventricles are normal in size and shape. Basal cisterns are patent. No extra-axial flu id collections. Brain: No midline shift. No acute intracranial hemorrhage or mass effect. Scattered and confluent hy podensities in the subcortical and periventricular white matter are most commonly seen in the setting of chronic microvascular ischemic changes. There is mild age-related diffuse cerebral and cerebellar volume loss. Skull and face: Calvarium and facial bones appear intact, without suspicious lesions. Sinuses: Visualized sinuses and mastoids are clear. IMPRESSION: 1.No acute intracranial hemorrhage or focal edema. 2.No large vessel occlusion or hemodynamically significant arterial stenosis identified in the head. 3.Moderate chronic microvascular ischemic changes. Reviewed by: German Hoffman MD on 05/06/2022 12:43 PM [facility] Approved by: German Hoffman MD on 05/06/2022 12:43 PM PST Station ID: [id number]
--- NOTE | 2022-05-06 12:51 | CT Report ---
PROCEDURE: ANGIO NECK W INDICATIONS: L sided facial droop, L neck pain CONTRAST: 80ml Omnipaque 300 TECHNIQUE: After the administration of intravenous contrast, 1.5 mm axial sections acquired from the aortic arch to the [place] of [place]. Coronal 3-D maximum intensity projection (MIP) and/or volume rendering ref ormats were then performed. For radiation dose reduction, the following was used: automated exposur e control, adjustment of mA and/or kV according to patient size. COMPARISON: None. FINDINGS: Image quality: Excellent. Carotid system: Moderate aortic atherosclerotic calcifications. Arch vessels demonstrate a conventio nal branching pattern. The great vessels demonstrate a conventional anatomy as they arise from the ao rtic arch. The origins of the common carotid arteries appear patent. The common carotid arteries de monstrate mild calcified atherosclerotic plaque without significant stenosis. Atherosclerotic calcifi cations are seen at the right carotid bifurcation and proximal right internal carotid artery resultin g in approximately 60% stenosis of the right internal carotid artery. Atherosclerotic calcifications also seen at the left carotid bifurcation results in approximately 40% stenosis at the proximal left internal carotid artery. Posterior circulation: Focal calcified atherosclerotic plaque is seen at the origin of the right alem tebral artery resulting in less than 50% stenosis. Mild focal atherosclerotic plaque also seen at the left vertebral artery origin without significant stenosis. The more superior portions of the vertebr al arteries demonstrate normal course and caliber. They join to form a normal appearing basilar verena ry. Soft tissues: Visualized neck soft tissues demonstrate no suspicious abnormalities. The thyroid is normal in size and there are no incidental findings. Bones: No suspicious bony lesions. Multilevel degenerative changes are seen in the spine with revers al of the normal cervical lordosis. IMPRESSION: 1.Approximately 60% stenosis of the proximal right internal carotid artery. Left internal carotid art annamaria also demonstrates 40% stenosis proximally. 2.Focal calcified atherosclerotic plaque at the origins of the bilateral vertebral arteries results i n less than 50% stenosis. The estimate of stenosis included in the report of the imaging study was calculated using the NASCET method Reviewed by: German Hoffman MD on 05/06/2022 12:50 PM PST Approved by: German Hoffman MD on 05/06/2022 12:50 PM PST Station ID: [id number]
[2022-05-06 13:05] VITALS: BP 185/98
[2022-05-06] MEDS ORDERED: ENOXAPARIN 80 MG/0.8 ML SYRINGE SUBQ STA (13:13)
[2022-05-06] MEDS ORDERED: iohexoL-300 100 ML VIAL IVP ONE (18:31)
== END 2022-05-06 13:52 | disposition home or self-care (01) ==
LOC: EDUNIT# → ED 10:08
DX: G45.9 Transient cerebral ischemic attack, unspecified (principal); I48.91 Unspecified atrial fibrillation; Z79.01 Long term (current) use of anticoagulants; Z87.891 Personal history of nicotine dependence; Z95.0 Presence of cardiac pacemaker
CPT/HCPCS: 36415; 70496; 70498; 80053; 83690; 83735; 85025; 85610; 93005; 96372; 96374; 99283; 99284; J1170; J1650; Q9967

== ENCOUNTER → 2022-05-06 | Outpatient (CLI) | payer MEDICARE, OTHER | END | disposition critical access hospital (66) | LOC: EMS 09:58 | DX: R47.1 Dysarthria and anarthria (principal); R51.9 Headache, unspecified; R27.8 Other lack of coordination; I10 Essential (primary) hypertension | CPT/HCPCS: A0425; A0429 ==

== ENCOUNTER 2022-05-22 08:00 | Outpatient (CLI) | payer MEDICARE, OTHER | END 2022-05-22 23:59 | disposition home or self-care (01) | LOC: LAB.WCP 08:00 | PROVIDERS: ATTEND Family Medicine | DX: Z79.01 Long term (current) use of anticoagulants (principal); I48.91 Unspecified atrial fibrillation ==

== ENCOUNTER → 2022-06-05 | Outpatient (CLI) | payer MEDICARE, OTHER | LOC: LAB.WCP 08:00 | PROVIDERS: ATTEND Family Medicine | DX: Z79.01 Long term (current) use of anticoagulants (principal); I48.91 Unspecified atrial fibrillation ==

== ENCOUNTER 2022-06-26 08:00 | Outpatient (CLI) | payer MEDICARE, OTHER | END 2022-06-26 23:59 | disposition home or self-care (01) | LOC: LAB.WCP 08:00 | PROVIDERS: ATTEND Family Medicine | DX: Z79.01 Long term (current) use of anticoagulants (principal); I48.91 Unspecified atrial fibrillation ==

== ENCOUNTER 2022-06-30 12:53 | Outpatient (CLI) | payer MEDICARE, OTHER ==
[2022-06-30 13:39] VITALS: BP 142/80
--- NOTE | 2022-06-30 13:39 | SLEEP CARE CONSULTATION ---
Information from patient questionnaire entered by Fiona Glover. I have reviewed and concur with the information entered by Fiona Glover. This document represents the service I personally performed and the decisions made by me, Lalita Trammell ARNP. History of Present Illness Service Date and Time: 06/30/2022 1253 Previous diagnosis: Severe, Central Sleep Apnea-Hypopnea Syndrome AHI: 46.7 (in 2012) Reason for follow up: annual (05/2021) Equipment type: BiPAP (RESMED Aircurve 10 V/auto s/u 03/2021; SD CARD NEEDED FOR DOWNLOAD AND PRESSURE CHANGES) Equipment obtained from: Other ([facility] : getting supplies as needed) Mask style: Nasal pillows (Pilaro) Backup mask available: Yes (old mask) Last cushion change: 2 weeks Prior sleep studies: Yes Year and Where: 2012 [facility] Type of Sleep Study: Polysomnography HPI additional information: LANE LONG was diagnosed to have severe, AHI 46.7, central sleep apnea-hypopnea syndrome and returned today for BIPAP therapy annual follow-up. Sleep Study - Results Type of Sleep Study: Polysomnography Prior sleep studies: Yes Year and Where: 2012 [facility] CPAP Compliance Data - Data Reviewed with Patient Average duration of nightly device use: 9 hours 17 minutes Compliance rate %: 81 (73/90 days used) Current pressure setting (cmH2O): 12/7 Average residual AHI: 16.1 Central apnea: 9.1 Obstructive apnea: 3.2 Hypopnea: 1.5 Average large leak: 3.3 L/min Subjective Missed days of use due to: reports: travel (used other back up BIPAP (Linda)) Patient concerns: reports: other (running out of water in humidity chamber). denies: aerophagia, mask discomfort, air blowing in eyes, mask leak noise, condensation in mask/hose, nasal congestion, dry mouth, nose, throat, epistaxis Observed to snore while using device: No Current pressure setting perceived as: comfortable On therapy, patient: reports: sleeping better, awakening more refreshed, being more awake and alert during the day, more rested overall. denies: drowsiness while driving Initial [place] Sleepiness Scale score: 11 (in 2012) Current [place] Sleepiness Scale score: 10 (06/30/22) Allergies and Home Medications Drug allergies reviewed: Yes (NKDA) Home medication list reviewed: Yes (Warfain) Review of Systems Review of systems same as previous: Yes (no changes) Physical Exam Vital signs obtained and entered by: FIONA Mccabe MA Blood Pressure: 142/80 (LEFT ARM) Cuff size: regular Heart Rate: 95 O2 Saturation: 97 Height: 6 ft Weight: 193 lb 9.6 oz Body Mass Index: 26.2 BMI Classification: Overweight Impression and Plan 1. Central Sleep Apnea-Hypopnea Syndrome, severe, with good treatment compliance and fair apnea control. On BIPAP therapy, the patient has better sleep quality and is more rested overall. The patients pressure will be changed to BIPAP 14/8 cmH20 for elevation of residual AHI. His Central index is 9.1, obstructive index at 3.2 and hypopnea index at 1.5. Patient advised to contact me if pressure change is uncomfortable so that it can be adjusted. Goals for apnea control discussed. He has been having his water chamber run out of water in the last couple weeks but has not changed anything on the settings. His humidity is set at 4. He states he will monitor and change humidity as needed. Patient's apnea severity and rationale for treatment to reduce apnea, improve sleep quality and reduce cardiovascular and cerebrovascular events was reviewed. I also reviewed the benefit of consistent device use of BIPAP for hypertension and arrhythmia. 2. Overweight, unspecified. Currently patients BMI is 26.2. Obesity increases the risk of apnea, CPAP pressure requirements and overall health risks especially cardiovascular and diabetes. Thus patient is advised to lose weight. * Change BIPAP pressure to 14/8 cmH2O * Update supplies * Notify me if snoring with mask or feeling that the pressure is too much or too little * Attempt to lose weight * Call this office if any problems using BIPAP * Return for follow up in 1-2 months, or sooner if concerns arise Counseling Topics: Weight loss health impact Visit Type: In Office Time Spent with Patient (minutes): 22 Provider Statement: I spent 100% of the Face to Face Visit with the patient with greater than 50% spent counseling the patient and coordination of care.
== END 2022-06-30 12:54 | disposition home or self-care (01) ==
LOC: SC 12:53
PROVIDERS: ATTEND Nurse Practitioner Family
DX: G47.33 Obstructive sleep apnea (adult) (pediatric) (principal); E66.3 Overweight; Z68.26 Body mass index [BMI] 26.0-26.9, adult
CPT/HCPCS: 99213; G0463; 99212

== ENCOUNTER 2022-07-03 08:00 | Outpatient (CLI) | payer MEDICARE, OTHER | END 2022-07-03 23:59 | disposition home or self-care (01) | LOC: LAB.WCP 08:00 | PROVIDERS: ATTEND Family Medicine | DX: Z79.01 Long term (current) use of anticoagulants (principal); I48.91 Unspecified atrial fibrillation ==

== ENCOUNTER 2022-07-10 08:00 | Outpatient (CLI) | payer MEDICARE, OTHER | END 2022-07-10 23:59 | disposition home or self-care (01) | LOC: LAB.WCP 08:00 | PROVIDERS: ATTEND Family Medicine | DX: Z79.01 Long term (current) use of anticoagulants (principal); I48.91 Unspecified atrial fibrillation ==

== ENCOUNTER 2022-07-24 08:00 | Outpatient (CLI) | payer MEDICARE, OTHER | END 2022-07-24 23:59 | disposition home or self-care (01) | LOC: LAB.N 08:00 | PROVIDERS: ATTEND Family Medicine | DX: Z79.01 Long term (current) use of anticoagulants (principal); I48.91 Unspecified atrial fibrillation ==

== ENCOUNTER 2022-07-31 08:00 | Outpatient (CLI) | payer MEDICARE, OTHER | END 2022-07-31 23:59 | disposition home or self-care (01) | LOC: LAB.N 08:00 | PROVIDERS: ATTEND Family Medicine | DX: Z79.01 Long term (current) use of anticoagulants (principal); I48.91 Unspecified atrial fibrillation ==

== ENCOUNTER 2022-08-07 09:27 | Outpatient (CLI) | payer MEDICARE, OTHER ==
[2022-08-07 09:49] LABS: CALCIUM 9.4 mg/dL (8.5-10.3); CREATININE 1.5 mg/dL (0.6-1.2); MAGNESIUM 2.1 mg/dL (1.7-2.8); POTASSIUM 4.7 mmol/L (3.5-5.0)
== END 2022-08-07 09:28 | disposition home or self-care (01) ==
LOC: LAB 09:27
PROVIDERS: ATTEND Internal Medicine Cardiovascular Disease
DX: I48.20 Chronic atrial fibrillation, unspecified (principal); I10 Essential (primary) hypertension
CPT/HCPCS: 36415; 80048; 83735

== ENCOUNTER 2022-08-07 13:46 | Outpatient (CLI) | payer MEDICARE, OTHER ==
[2022-08-07 14:11] VITALS: BP 112/4
--- NOTE | 2022-08-07 14:11 | SLEEP CARE CONSULTATION ---
Information from patient questionnaire entered by Jairo Glover. I have reviewed and concur with the information entered by Jairo Glover. This document represents the service I personally performed and the decisions made by , Lalita Trammell ARNP. History of Present Illness Service Date and Time: 08/07/2022 1346 Previous diagnosis: Severe, Central Sleep Apnea-Hypopnea Syndrome AHI: 46.7 (in 2012) Reason for follow up: one month (F/U) Equipment type: BiPAP (RESMED Aircurve 10 V/Auto s/u 03/2021; SD CARD NEEDED FOR DOWNLOAD AND PRESSURE CHANGES) Equipment obtained from: Other ([facility] : getting supplies as needed) Mask style: Nasal pillows (Pilaro) Backup mask available: Yes (old mask) Prior sleep studies: Yes Year and Where: 2012 [facility] Type of Sleep Study: Polysomnography HPI additional information: LANE [place] was diagnosed to have severe, AHI 46.7, central sleep apnea-hypopnea syndrome and returned today for BIPAP therapy one month follow-up. Sleep Study - Results Type of Sleep Study: Polysomnography Prior sleep studies: Yes Year and Where: 2012 [facility] CPAP Compliance Data - Data Reviewed with Patient Average duration of nightly device use: 8 hours 58 minutes Compliance rate %: 100 (30/30 days used) Current pressure setting (cmH2O): 14/8 Average residual AHI: 18.0 Central apnea: 11.4 Obstructive apnea: 2.6 Hypopnea: 0.2 Subjective Patient concerns: reports: other (water usage high). denies: aerophagia, mask discomfort, air blowing in eyes, mask leak noise, condensation in mask/hose, nasal congestion, dry mouth, nose, throat, epistaxis Observed to snore while using device: No Current pressure setting perceived as: comfortable On therapy, patient: reports: sleeping better, awakening more refreshed, being m ore awake and alert during the day, more rested overall. denies: drowsiness while driving Initial [place] Sleepiness Scale score: 11 (in 2012) Current [place] Sleepiness Scale score: 12 (08/07/22) Allergies and Home Medications Known drug allergies: No Drug allergies reviewed: Yes Home medication list reviewed: Yes (no changes) Allergy and home medication list: Allergies No Known Drug Allergies Allergy (Verified 08/06/22 14:06) Physical Exam Vital signs obtained and entered by: JAIRO Mccabe MA Blood Pressure: 112/4 (LEFT ARM) Cuff size: regular Heart Rate: 81 O2 Saturation: 98 Height: 6 ft Weight: 191 lb 3.2 oz Body Mass Index: 25.9 BMI Classification: Overweight Impression and Plan 1. Central Sleep Apnea-Hypopnea Syndrome, severe, with good treatment compliance and fair apnea control with elevated residual AHI. On BIPAP therapy, the patient has better sleep quality and is more rested overall. His central index went up. I reviewed his history and he has had good control with the 12/7 cmH2O setting on his BiPAP. The patients pressure will be changed to autoCPAP 12/7 cmH20 for elevation of residual AHI. Patient advised to contact me if pressure change is uncomfortable so that it can be adjusted. Goals for apnea control discussed. Patient's apnea severity and rationale for treatment to reduce apnea, improve sleep quality and reduce cardiovascular and cerebrovascular events was reviewed. I also reviewed the benefit of consistent device use of BIPAP for hypertension and arrhythmia. 2. Overweight, unspecified. Currently patients BMI is 25.9. Obesity increases the risk of apnea, BIPAP pressure requirements and overall health risks especially cardiovascular and diabetes. Thus patient is advised to lose weight. * Change BIPAP pressure to 12/7 cmH2O * Notify me if snoring with mask or feeling that the pressure is too much or too little * Attempt to lose weight * Call this office if any problems using BIPAP * Return for follow up in 1 year, or sooner if concerns arise Counseling Topics: Weight loss health impact Visit Type: In Office Time Spent with Patient (minutes): 20 Provider Statement: I spent 100% of the Face to Face Visit with the patient with greater than 50% spent counseling the patient and coordination of care.
== END 2022-08-07 13:47 | disposition home or self-care (01) ==
LOC: SC 13:46
PROVIDERS: ATTEND Nurse Practitioner Family
DX: G47.31 Primary central sleep apnea (principal); E66.3 Overweight; Z68.25 Body mass index [BMI] 25.0-25.9, adult; I48.20 Chronic atrial fibrillation, unspecified; I10 Essential (primary) hypertension
CPT/HCPCS: 36415; 80048; 83735; 99213; G0463; 99212

== ENCOUNTER 2022-08-14 08:00 | Outpatient (CLI) | payer MEDICARE, OTHER | END 2022-08-14 23:59 | disposition home or self-care (01) | LOC: LAB.N 08:00 | PROVIDERS: ATTEND Family Medicine | DX: Z79.01 Long term (current) use of anticoagulants (principal); I48.91 Unspecified atrial fibrillation ==

== ENCOUNTER 2022-08-28 08:00 | Outpatient (CLI) | payer MEDICARE, OTHER | END 2022-08-28 23:59 | disposition home or self-care (01) | LOC: LAB.N 08:00 | PROVIDERS: ATTEND Family Medicine | DX: Z79.01 Long term (current) use of anticoagulants (principal); I48.91 Unspecified atrial fibrillation ==

== ENCOUNTER 2022-09-11 08:00 | Outpatient (CLI) | payer MEDICARE, OTHER | END 2022-09-11 23:59 | disposition home or self-care (01) | LOC: LAB.N 08:00 | PROVIDERS: ATTEND Family Medicine | DX: Z79.01 Long term (current) use of anticoagulants (principal); I48.91 Unspecified atrial fibrillation ==

== ENCOUNTER 2022-10-02 08:00 | Outpatient (CLI) | payer MEDICARE, OTHER | END 2022-10-02 23:59 | disposition home or self-care (01) | LOC: LAB.N 08:00 | PROVIDERS: ATTEND Family Medicine | DX: Z79.01 Long term (current) use of anticoagulants (principal) ==

== ENCOUNTER 2022-10-28 07:27 | Outpatient (CLI) | payer MEDICARE, OTHER ==
[2022-10-28 07:43] LABS: BASOPHILS # (AUTO) 0.1 10^3/uL (0.0-0.1); EOSINOPHILS # (AUTO) 0.2 10^3/uL (0.0-0.7); HCT - HEMATOCRIT 43.3 % (42.0-52.0); HGB - HEMOGLOBIN 14.7 g/dL (14.0-18.0); LYMPHOCYTES # (AUTO) 1.4 10^3/uL (1.5-3.5); LYMPHOCYTES % (AUTO) 24.7 %; MEAN CORPUSCULAR HGB CONC 33.9 g/dL (32.0-36.0); MEAN CORPUSCULAR VOLUME 94.3 fL (80.0-94.0); MEAN PLATELET VOLUME 9.9 fL (7.4-11.4); MONOCYTES # (AUTO) 0.7 10^3/uL (0.0-1.0); MONOCYTES % (AUTO) 11.8 %; NEUTROPHILS # (AUTO) 3.4 10^3/uL (1.5-6.6); NEUTROPHILS % (AUTO) 59.2 %; PLT - PLATELET COUNT 161 10^3/uL (130-450); RED BLOOD COUNT 4.59 10^6/uL (4.70-6.10); RED CELL DISTRIBUTION WIDTH 14.1 % (12.0-15.0); WHITE BLOOD COUNT 5.8 x10^3/uL (4.8-10.8)
[2022-10-28 08:00] LABS: ALBUMIN 3.8 g/dL (3.2-5.5); ALKALINE PHOSPHATASE 90 IU/L (42-121); ALT ALANINE AMINOTRANSFERASE 24 IU/L (10-60); AST ASPARTATE AMINOTRANSFERASE 34 IU/L (10-42); BILIRUBIN,TOTAL 0.7 mg/dL (0.2-1.0); BUN - BLOOD UREA NITROGEN 37 mg/dL (6-20); CALCIUM 9.5 mg/dL (8.5-10.3); CARBON DIOXIDE - CO2 31 mmol/L (21-32); CHLORIDE 102 mmol/L (101-111); CHOL/HDL RATIO 2.3 (<5.0); CHOLESTEROL 206 mg/dL; CREATININE 1.6 mg/dL (0.6-1.2); GFR - MDRD 41 (>89); GLUCOSE 116 mg/dL (70-100); HDL CHOLESTEROL 91 mg/dL; LDL CHOLESTEROL,CALCULATED 103 mg/dL; LDL/HDL RATIO 1.1 (<3.6); POTASSIUM 4.9 mmol/L (3.5-5.0); SODIUM 138 mmol/L (135-145); TOTAL PROTEIN 7.5 g/dL (6.7-8.2); TRIGLYCERIDES 62 mg/dL; VLDL CHOLESTEROL 12 mg/dL
[2022-10-28 08:11] LABS: THYROID STIMULATING HORMONE 1.89 uIU/mL (0.34-5.60)
[2022-10-28 10:16] LABS: ESTIMATED AVERAGE GLUCOSE 140 mg/dL (70-100); HEMOGLOBIN A1c% 6.5 % (4.27-6.07)
== END 2022-10-28 07:28 | disposition home or self-care (01) ==
LOC: LAB 07:27
PROVIDERS: ATTEND Family Medicine
DX: I12.9 Hypertensive chronic kidney disease with stage 1 through stage 4 chronic kidney disease, or unspecified chronic kidney disease (principal); N18.32 Chronic kidney disease, stage 3b; M48.062 Spinal stenosis, lumbar region with neurogenic claudication; M54.16 Radiculopathy, lumbar region; I48.91 Unspecified atrial fibrillation; I47.20 Ventricular tachycardia, unspecified; R73.9 Hyperglycemia, unspecified
CPT/HCPCS: 36415; 80053; 80061; 83036; 83721; 84443; 85025

== ENCOUNTER 2022-10-30 08:00 | Outpatient (CLI) | payer MEDICARE, OTHER | END 2022-10-30 23:59 | disposition home or self-care (01) | LOC: LAB.N 08:00 | PROVIDERS: ATTEND Family Medicine | DX: Z79.01 Long term (current) use of anticoagulants (principal); I48.91 Unspecified atrial fibrillation ==

== ENCOUNTER 2022-11-03 15:22 | Outpatient (CLI) | payer MEDICARE, OTHER ==
--- NOTE | 2022-11-03 16:45 | XRAY Report ---
PROCEDURE: Abdomen 1 View X-Ray INDICATIONS: FLATULENCE,ERUCTATION AND GAS PAIN,LARGE STOOL TECHNIQUE: One view of the abdomen acquired. COMPARISON: None. FINDINGS: Surgical changes and devices: Pacemaker leads are noted. Bowel: There is moderate air in the stomach and within the right colon and. Overall bowel gas pattern is nonspecific without signs of bowel obstruction. Soft tissues: No suspicious abdominal calcifications. Visualized solid organ contours appear normal in size. Bones: No suspicious bony lesions. Multilevel degenerative changes in the spine. IMPRESSION: Nonspecific nonobstructive bowel gas pattern. Reviewed by: German Hoffman MD on 11/03/2022 4:44 PM PDT Approved by: German Hoffman MD on 11/03/2022 4:44 PM PDT Station ID: [id number]
== END 2022-11-03 15:23 | disposition home or self-care (01) ==
LOC: DI 15:22
PROVIDERS: ATTEND Family Medicine
DX: R14.3 Flatulence (principal); R19.5 Other fecal abnormalities

== ENCOUNTER 2022-11-27 08:00 | Outpatient (CLI) | payer MEDICARE, OTHER | END 2022-11-27 23:59 | disposition home or self-care (01) | LOC: LAB.N 08:00 | PROVIDERS: ATTEND Family Medicine | DX: Z79.01 Long term (current) use of anticoagulants (principal); I48.91 Unspecified atrial fibrillation ==

== ENCOUNTER 2022-12-02 10:33 | Outpatient (CLI) | payer MEDICARE, OTHER | END 2022-12-02 23:59 | disposition critical access hospital (66) | LOC: EMS 10:33 | DX: M54.2 Cervicalgia (principal); M62.838 Other muscle spasm | CPT/HCPCS: A0425; A0429 ==

== ENCOUNTER 2022-12-02 10:45 | Emergency (ER) | payer MEDICARE, OTHER ==
--- NOTE | 2022-12-02 11:02 | ED Physician Documentation ---
PD HPI NECK PAIN - Stated complaint Stated Complaint: NECK SPASM - Chief complaint Chief Complaint: General - History obtained from History obtained from: Patient, EMS - History of Present Illness Timing - onset: How many weeks ago (1) Timing - duration: Weeks Timing - details: Gradual onset, Still present, Waxing and waning (but more consistent the past day or so.) Location: Mid, Right Quality: Pain, Spasm. No: Tearing, Aching Associated symptoms: No: Fever, Weakness, Numbness Improves with: No: Rest Worsened by: Movement, Twisting Contributing factors: No: Lifting, Twisting, Trauma Similar symptoms before: Has not had sx before Recently seen: Not recently seen Review of Systems Constitutional: denies: Fever, Chills Eyes: denies: Loss of vision, Decreased vision Throat: denies: Sore throat Cardiac: denies: Chest pain / pressure, Palpitations Respiratory: denies: Dyspnea, Cough Neurologic: denies: Focal weakness, Numbness PD PAST MEDICAL HISTORY - Past Medical History Cardiovascular: Hypertension, High cholesterol, Atrial fibrillation Respiratory: Sleep apnea, CPAP use Neuro: None Endocrine/Autoimmune: None GI: None : None HEENT: Chronic hearing loss Psych: None Musculoskeletal: Osteoarthritis Derm: None - Past Surgical History Past Surgical History: Yes Ortho: Spine surgery Cardiovascular: Pacemaker - Present Medications Home Medications: Ambulatory Orders Medication Instructions Recorded Confirmed Atorvastatin [Lipitor] 20 mg PO DAILY PM 10/12/18 08/07/22 Finasteride 5 mg PO DAILY PM 10/12/18 08/07/22 Ipratropium [Atrovent] 2 puffs INH TID 10/12/18 08/07/22 Metoprolol Succinate [Kapspargo 25 mg PO DAILY 10/12/18 08/07/22 Sprinkle] Tamsulosin [Flomax] 0.4 mg PO DAILY PM 10/12/18 08/07/22 traMADol [Ultram] 50 mg PO PRN PRN 10/12/18 08/07/22 Acetaminophen [Acetaminophen ER] 650 mg PO PRN PRN 01/24/19 08/07/22 Metoprolol Succinate [Toprol Xl] 50 mg PO DAILY PM 01/24/19 08/07/22 Amiodarone [Pacerone] 200 mg PO BID 10/10/21 08/07/22 Apixaban [Eliquis] 2.5 mg PO BID 10/10/21 08/07/22 methocarbamoL [Robaxin] 500 mg PO Q6H PRN #20 tablet 12/02/22 oxyCODONE [Roxicodone] 5 mg PO Q6H PRN #15 tablet 12/02/22 - Allergies Allergies/Adverse Reactions: Allergies Allergy/AdvReac Type Severity Reaction Status Date / Time No Known Drug Allergies Allergy Verified 08/07/22 13:52 - Social History Does the pt smoke?: No Smoking Status: Former smoker (quit 40 years ago) Does the pt drink ETOH?: Yes Does the pt have substance abuse?: No PD ED PE NORMAL - Vitals Vital signs reviewed: Yes - General General: Alert and oriented X 3, Well developed/nourished, Other (appears in pain right back of neck. some tenderness in upper trapezius and occipital ridge. No rash nor sores. ) - HEENT HEENT: Atraumatic - Neck Neck: Supple, no meningeal sign, No adenopathy - Cardiac Cardiac: RRR, No murmur - Respiratory Respiratory: Clear bilaterally - Derm Derm: Normal color, Warm and dry, No rash - Extremities Extremities: Normal ROM s pain - Neuro Neuro: Alert and oriented X 3, nephrology nurse 2-12 intact, No motor deficit, No sensory deficit, Normal speech Eye Opening: Spontaneous Motor: Obeys Commands Verbal: Oriented GCS Score: 15 Results - Vitals Vitals: Oxygen O2 Source Room air - Labs Labs: Laboratory Tests 12/02/22 12/02/22 12/02/22 11:41 11:41 11:41 WBC 7.8 RBC 4.54 L Hgb 14.7 Hct 42.3 MCV 93.2 MCH 32.4 H MCHC 34.8 RDW 13.9 Plt Count 169 MPV 9.7 Neut # (Auto) 5.5 Lymph # (Auto) 1.3 L [place] # (Auto) 0.8 Eos # (Auto) 0.1 Baso # (Auto) 0.1 Absolute Nucleated RBC 0.00 Nucleated RBC % 0.0 ESR 15 PT 47.6 H INR 4.7 H* Sodium Potassium Chloride Carbon Dioxide Anion Gap BUN Creatinine Estimated GFR (MDRD) Glucose Lactic Acid Calcium Total Bilirubin AST ALT Alkaline Phosphatase Total Protein Albumin Globulin Albumin/Globulin Ratio Lipase 07/12/23 07/12/23 11:41 11:41 WBC RBC Hgb Hct MCV MCH MCHC RDW Plt Count MPV Neut # (Auto) Lymph # (Auto) [place] # (Auto) Eos # (Auto) Baso # (Auto) Absolute Nucleated RBC Nucleated RBC % ESR PT INR Sodium 136 Potassium 4.2 Chloride 101 Carbon Dioxide 28 Anion Gap 7.0 BUN 31 H Creatinine 1.5 H Estimated GFR (MDRD) 44 L Glucose 102 H Lactic Acid 2.0 Calcium 9.5 Total Bilirubin 1.3 H AST 33 ALT 25 Alkaline Phosphatase 95 Total Protein 7.4 Albumin 4.1 Globulin 3.3 Albumin/Globulin Ratio 1.2 Lipase 53 H - Rads (name of study) neck CTA Relevant Findings:: Prelim report reviewed (moderate atherosclerotic blockages up to 60%. No significant blockages. Moderate disc disease. No acute fractures or other acute process. ), EMP independent interpretation of test, See rad report PD Medical Decision Making - ED course Complexity details: reviewed results (no acute problem found at labs, imaging. ), re-evaluated patient (having much improved pain with medications of dilaudid and toradol here. He has some mild tender upper right trapezius. Consider local injection there, but patient declined for now. ), considered differential (consider right muscular or atrhitic neck pain, but also concer for vascular process, stress fractures, bone lesions among other. Can get CT/CTA of neck to eval for serious causes. ), d/w patient Departure - Departure Disposition: 01 Home, Self Care Clinical Impression: Posterior neck pain, Supratherapeutic international normalized ratio (INR), Neck muscle spasm Condition: Stable Record reviewed to determine appropriate education?: Yes Instructions: ED Neck Pain No Trauma Follow-Up: Payam Bates MD [Primary Care Provider] - Prescriptions: methocarbamoL [Robaxin] 500 mg PO Q6H PRN #20 tablet PRN Reason: Spasms oxyCODONE [Roxicodone] 5 mg PO Q6H PRN #15 tablet PRN Reason: Pain Comments: Your CT scan shows some degenerative disc disease and arthritis in the neck. No obvious acute abnormality. In particular no fractures, large discs out, vascular blockages (there are some atherosclerotic buildup but none of significant stenosis), vascular tears or soft tissue masses. Obviously her neck is still hurting and 1 would presume some arthritic flareup or more likely muscle strain and spasms. Use some heat to the area periodically. Tylenol 500 to 1000 mg 3-4 times daily, not to exceed 3000 mg a day. Add Robaxin muscle relaxant to 3 times daily for the next several days and as needed for spasms. Add oxycodone pain medicine every 6 hours if needed for worse pain. I sent prescriptions to the [facility] pharmacy here in [place]. Your INR was elevated at 4.7. Hold your Coumadin tonight and tomorrow. Resume it on Wednesday and have INR checked again on Wednesday/Wednesday. Recheck if not improving well over the next several days and resolved by several days to a week. Be attentive for any new symptoms develop such as numbness or weakness in the arms, fevers, any rash in the area or worsening pain. My narcotic instructions I am prescribing a short course of narcotic pain medication for you. These are potentially dangerous and addictive medications that should be used carefully. These medications may constipate you. Take an [id number] stool softener such as docusate twice daily with plenty of water while taking these medications. If you go 24 hours without a bowel movement, take [id number] MiraLAX, per package instructions. Do not drink or drive while taking these medications. If you received narcotic or sedating medications while in the emergency department do not drive for 24 hours. Store this medication in a safe, secure place and out of reach of children. It is a violation of federal law to give or sell this medication to another person or to use in a manner other than prescribed. The ED will not refill narcotic prescriptions, including prescriptions lost or stolen. You can dispose of unwanted medications at the [facility]'s office or at several pharmacies such as [facility]. Discharge Date/Time: 12/02/22 15:23
[2022-12-02] MEDS ORDERED: KETOROLAC 15 MG/ML VIAL IVP STA (11:33)
[2022-12-02] MEDS ORDERED: HYDROmorphone 1 MG/ML CARPUJECT IVP STA (11:33)
[2022-12-02 11:49] LABS: BASOPHILS # (AUTO) 0.1 10^3/uL (0.0-0.1); BASOPHILS % (AUTO) 0.6 %; EOSINOPHILS # (AUTO) 0.1 10^3/uL (0.0-0.7); EOSINOPHILS % (AUTO) 1.5 %; HCT - HEMATOCRIT 42.3 % (42.0-52.0); HGB - HEMOGLOBIN 14.7 g/dL (14.0-18.0); LYMPHOCYTES # (AUTO) 1.3 10^3/uL (1.5-3.5); LYMPHOCYTES % (AUTO) 16.3 %; MEAN CORPUSCULAR HEMOGLOBIN 32.4 pg (27.0-31.0); MEAN CORPUSCULAR HGB CONC 34.8 g/dL (32.0-36.0); MEAN CORPUSCULAR VOLUME 93.2 fL (80.0-94.0); MEAN PLATELET VOLUME 9.7 fL (7.4-11.4); MONOCYTES # (AUTO) 0.8 10^3/uL (0.0-1.0); MONOCYTES % (AUTO) 10.6 %; NEUTROPHILS # (AUTO) 5.5 10^3/uL (1.5-6.6); NEUTROPHILS % (AUTO) 70.7 %; PLT - PLATELET COUNT 169 10^3/uL (130-450); RED BLOOD COUNT 4.54 10^6/uL (4.70-6.10); RED CELL DISTRIBUTION WIDTH 13.9 % (12.0-15.0); WHITE BLOOD COUNT 7.8 x10^3/uL (4.8-10.8)
[2022-12-02 12:01] LABS: ALBUMIN 4.1 g/dL (3.2-5.5); ALBUMIN/GLOBULIN RATIO 1.2 (1.0-2.2); BILIRUBIN,TOTAL 1.3 mg/dL (0.2-1.0); CALCIUM 9.5 mg/dL (8.5-10.3); CREATININE 1.5 mg/dL (0.6-1.2); POTASSIUM 4.2 mmol/L (3.5-5.0); TOTAL PROTEIN 7.4 g/dL (6.7-8.2)
[2022-12-02 12:05] LABS: PT - PROTHROMBIN TIME 47.6 secs (9.9-12.6)
[2022-12-02 12:06] LABS: INR 4.7 (0.8-1.2)
[2022-12-02] MEDS ORDERED: iohexoL-300 100 ML VIAL ONE (12:42)
--- NOTE | 2022-12-02 13:47 | CT Report ---
PROCEDURE: ANGIO NECK W INDICATIONS: abrupt right neck pain today without injury CONTRAST: 80ml omni 300 TECHNIQUE: After the administration of intravenous contrast, 1.5 mm axial sections acquired from the aortic arch to the [place] of [place]. Coronal 3-D maximum intensity projection (MIP) and/or volume rendering ref ormats were then performed. For radiation dose reduction, the following was used: automated exposur e control, adjustment of mA and/or kV according to patient size. COMPARISON: 05/06/2022. FINDINGS: Image quality: Excellent. Carotid system: The great vessels demonstrate a conventional anatomy as they arise from the aortic a rc. Moderate atherosclerotic calcifications are noted involving aortic arch. The origins of the comm on carotid arteries appear patent. The common carotid arteries demonstrate normal calibers and cours es. Moderate amount of atherosclerotic calcifications are seen in right carotid bulb with up to 60% s tenosis involving proximal right internal carotid artery. Mild atherosclerotic calcifications are see n involving left carotid bulb and origin of left internal carotid artery with less than 50% stenosis. More distal bilateral internal carotid arteries demonstrate normal caliber and course. Posterior circulation: Approximately 50% stenosis involving origin of right vertebral artery is seen. Less than 50% stenosis is seen involving origin of left vertebral artery. The more superior portions of the vertebral arteries demonstrate normal course and caliber. They join to form a normal appeari ng basilar artery. Soft tissues: Visualized neck soft tissues demonstrate no suspicious abnormalities. The thyroid is normal in size and there are no incidental findings. Bones: No suspicious bony lesions. Moderate to severe degenerative disc disease throughout cervical spine is seen. Grade 1, 4 mm anterolisthesis of C4 on C5 is noted. There is dorsal disc osteophyte co mplex formation and bilateral facet hypertrophic changes at C3-4 through C6-7 levels causing moderate to severe central canal stenosis and bilateral neural foraminal narrowing more notably at C5-6 and C 6-7 levels. IMPRESSION: 1. Mild to moderate amount of atherosclerotic disease in the aortic arch, origins of bilateral verteb ral arteries and bilateral carotid bulb as described above. Up to 60% stenosis involving proximal rig ht internal carotid artery unchanged from prior study. Approximately 50% stenosis involving origin of right vertebral artery. Less than 50% stenosis in left internal carotid artery and origin of left ve rtebral artery. 2. Moderate to severe degenerative disc disease in cervical spine as described above. No acute fractu re or dislocation. The estimate of stenosis included in the report of the imaging study was calculated using the NASCET method CLINICAL RECOMMENDATION STATEMENTS: In patients <35 years with an ITN detected on CT, MRI, or extrathyroidal ultrasound, the Committee re commends further evaluation with dedicated thyroid ultrasound if the nodule is "e1 cm and has no susp icious imaging features, and if the patient has normal life expectancy. In patients "e35 years with an ITN detected on CT, MRI, or extrathyroidal ultrasound, the Committee r ecommends further evaluation with dedicated thyroid ultrasound if the nodule is "e1.5 cm and has no s uspicious imaging features, and if the patient has normal life expectancy. (ACR, 2014) Reviewed by: Neno Mckeon MD on 12/02/2022 1:46 PM PDT Approved by: Neno Mckeon MD on 12/02/2022 1:46 PM PDT Station ID: [id number]
[2022-12-02] MEDS ORDERED: iohexoL-300 100 ML VIAL IV ONE (13:49)
[2022-12-02 15:24] VITALS: BP 133/75
== END 2022-12-02 15:23 | disposition home or self-care (01) ==
LOC: EDUNIT# → ED 10:45
DX: M54.2 Cervicalgia (principal); M62.838 Other muscle spasm; I10 Essential (primary) hypertension; E78.00 Pure hypercholesterolemia, unspecified; I48.91 Unspecified atrial fibrillation; Z79.899 Other long term (current) drug therapy; Z79.01 Long term (current) use of anticoagulants; Z87.891 Personal history of nicotine dependence
CPT/HCPCS: 36415; 70498; 80053; 83605; 83690; 85025; 85610; 85651; 96374; 99284; J1170; Q9967

== ENCOUNTER 2023-01-01 08:00 | Outpatient (CLI) | payer MEDICARE, OTHER | END 2023-01-01 23:59 | disposition home or self-care (01) | LOC: LAB.N 08:00 | PROVIDERS: ATTEND Internal Medicine | DX: Z79.01 Long term (current) use of anticoagulants (principal); I48.91 Unspecified atrial fibrillation ==

== ENCOUNTER 2023-01-08 08:00 | Outpatient (CLI) | payer MEDICARE, OTHER | END 2023-01-08 23:59 | disposition home or self-care (01) | LOC: LAB.WCP 08:00 | PROVIDERS: ATTEND Family Medicine | DX: Z79.01 Long term (current) use of anticoagulants (principal); I48.91 Unspecified atrial fibrillation ==

== ENCOUNTER 2023-01-15 08:00 | Outpatient (CLI) | payer MEDICARE, OTHER | END 2023-01-15 23:59 | disposition home or self-care (01) | LOC: LAB.WCP 08:00 | PROVIDERS: ATTEND Family Medicine | DX: I48.91 Unspecified atrial fibrillation (principal); Z79.01 Long term (current) use of anticoagulants ==

== ENCOUNTER 2023-03-12 08:00 | Outpatient (CLI) | payer MEDICARE, OTHER | END 2023-03-12 23:59 | disposition home or self-care (01) | LOC: LAB.WCP 08:00 | PROVIDERS: ATTEND Family Medicine | DX: Z79.01 Long term (current) use of anticoagulants (principal); I48.91 Unspecified atrial fibrillation ==

== ENCOUNTER 2023-04-10 21:44 | Outpatient (CLI) | payer MEDICARE, OTHER | END 2023-04-10 21:45 | disposition critical access hospital (66) | LOC: EMS 21:44 | DX: R07.89 Other chest pain (principal); R06.02 Shortness of breath; Z79.01 Long term (current) use of anticoagulants; R23.0 Cyanosis | CPT/HCPCS: A0425; A0429 ==

== ENCOUNTER 2023-04-10 21:55 | Emergency (ER) | payer MEDICARE, OTHER ==
[2023-04-10 22:43] LABS: BASOPHILS # (AUTO) 0.1 10^3/uL (0.0-0.1); BASOPHILS % (AUTO) 0.6 %; EOSINOPHILS # (AUTO) 0.1 10^3/uL (0.0-0.7); EOSINOPHILS % (AUTO) 1.5 %; HCT - HEMATOCRIT 42.4 % (42.0-52.0); HGB - HEMOGLOBIN 14.2 g/dL (14.0-18.0); LYMPHOCYTES # (AUTO) 1.5 10^3/uL (1.5-3.5); LYMPHOCYTES % (AUTO) 17.8 %; MEAN CORPUSCULAR HEMOGLOBIN 32.5 pg (27.0-31.0); MEAN CORPUSCULAR HGB CONC 33.5 g/dL (32.0-36.0); MEAN PLATELET VOLUME 9.4 fL (7.4-11.4); MONOCYTES % (AUTO) 12.7 %; NEUTROPHILS # (AUTO) 5.5 10^3/uL (1.5-6.6); NEUTROPHILS % (AUTO) 67.2 %; PLT - PLATELET COUNT 219 10^3/uL (130-450); RED BLOOD COUNT 4.37 10^6/uL (4.70-6.10); RED CELL DISTRIBUTION WIDTH 13.2 % (12.0-15.0); WHITE BLOOD COUNT 8.2 x10^3/uL (4.8-10.8)
[2023-04-10 22:49] LABS: INR 1.4 (0.8-1.2); PT - PROTHROMBIN TIME 15.2 secs (9.9-12.6)
[2023-04-10 22:55] LABS: ALBUMIN/GLOBULIN RATIO 1.7 (1.0-2.2); BILIRUBIN,TOTAL 0.7 mg/dL (0.2-1.0); CALCIUM 9.6 mg/dL (8.5-10.3); MAGNESIUM 1.7 mg/dL (1.7-2.3); POTASSIUM 4.4 mmol/L (3.5-4.5); TOTAL PROTEIN 6.3 g/dL (6.4-8.9)
[2023-04-10] MEDS ORDERED: SODIUM CHLORIDE 0.9% 1,000 ML IV STA (23:01)
--- NOTE | 2023-04-10 23:17 | XRAY Report ---
PROCEDURE: Chest 1 View X-Ray INDICATIONS: dyspnea TECHNIQUE: One view of the chest was acquired. COMPARISON: Two-view chest 01/24/2019. FINDINGS: Surgical changes and devices: Pacemaker/defibrillator with leads in normal position. This was previo usly present.. Lungs and pleura: No pleural effusions or pneumothorax. Lungs are moderately edematous. Mediastinum: Mediastinal contours appear normal. Heart size is moderately enlarged, chronically. Bones and chest wall: No suspicious bony lesions. Overlying soft tissues appear unremarkable. IMPRESSION: Chronic cardiomegaly with likelihood of chronic CHF, with acute exacerbation. Pacemaker and leads rem ain in normal position.. Reviewed by: Merrill Avina MD on 04/10/2023 11:15 PM PST Approved by: Merrill Avina MD on 04/10/2023 11:15 PM PST Station ID: [id number]
[2023-04-10 23:55] VITALS: O2SAT 97
[2023-04-11] MEDS ORDERED: iohexoL-300 100 ML VIAL IVP ONE (00:01)
[2023-04-11 00:08] LABS: B. PARAPERTUSSIS- RESP PCR PAN NOT DETECTED; B. PERTUSSIS- RESP PCR PANEL NOT DETECTED; C. PNEUMONIAE- RESP PCR PANEL NOT DETECTED; CORONAVIRUS 229E-RESP PCR NOT DETECTED; CORONAVIRUS HKU1-RESP PCR NOT DETECTED; CORONAVIRUS NL63-RESP PCR NOT DETECTED; CORONAVIRUS OC43-RESP PCR NOT DETECTED; HUMAN METAPNEUMOVIRUS NOT DETECTED; INFLUENZA A- RESP PCR PANEL NOT DETECTED; INFLUENZA B - RESP PCR PANEL NOT DETECTED; M. PNEUMONIAE- RESP PCR PANEL NOT DETECTED; PARAINFLUENZA VIRUS 1 NOT DETECTED; PARAINFLUENZA VIRUS 2 NOT DETECTED; PARAINFLUENZA VIRUS 3 NOT DETECTED; PARAINFLUENZA VIRUS 4 NOT DETECTED; RHINOVIRUS/ENTEROVIRUS DETECTED; RSV- RESP PCR PANEL NOT DETECTED; SARS-CoV-2 -RESP PCR PANEL NOT DETECTED
--- NOTE | 2023-04-11 00:12 | ED Physician Documentation ---
PD HPI CHEST PAIN - Stated complaint Stated Complaint: SOA/CHEST PX - Chief complaint Chief Complaint: Cardiac - History obtained from History obtained from: Patient, EMS - Additional information Additional information: 88-year-old male with history of atrial fibrillation on Eliquis, pacemaker in place presents by EMS from home for approximately 12 hours of central chest pain and shortness of breath that have gradually worsened throughout the day. EMS reports that patient was in bed with his CPAP machine on when they arrived, however he was breathing quickly and still endorsing shortness of breath. EKG showed right bundle branch block, no obvious ischemic findings. Review of Systems Constitutional: denies: Fever, Chills Cardiac: reports: Chest pain / pressure. denies: Palpitations, Calf pain Respiratory: reports: Dyspnea, Cough. denies: Wheezing Musculoskeletal: denies: Neck pain, Back pain, Extremity pain Neurologic: denies: Generalized weakness, Focal weakness, Numbness PD PAST MEDICAL HISTORY - Past Medical History Past Medical History: Yes Cardiovascular: Hypertension, High cholesterol, Atrial fibrillation Respiratory: Sleep apnea, CPAP use Neuro: None Endocrine/Autoimmune: None GI: None : None HEENT: Chronic hearing loss Psych: None Musculoskeletal: Osteoarthritis Derm: None - Past Surgical History Past Surgical History: Yes Ortho: Spine surgery Cardiovascular: Pacemaker - Present Medications Home Medications: Ambulatory Orders Medication Instructions Recorded Confirmed Atorvastatin [Lipitor] 20 mg PO DAILY PM 10/12/18 04/10/23 Finasteride 5 mg PO DAILY PM 10/12/18 04/10/23 Ipratropium [Atrovent] 2 puffs INH TID 10/12/18 04/10/23 Metoprolol Succinate [Kapspargo 25 mg PO DAILY 10/12/18 04/10/23 Sprinkle] Tamsulosin [Flomax] 0.4 mg PO DAILY PM 10/12/18 04/10/23 traMADol [Ultram] 50 mg PO PRN PRN 10/12/18 04/10/23 Acetaminophen [Acetaminophen ER] 650 mg PO PRN PRN 01/24/19 04/10/23 Metoprolol Succinate [Toprol Xl] 50 mg PO DAILY PM 01/24/19 04/10/23 Amiodarone [Pacerone] 200 mg PO BID 10/10/21 04/10/23 methocarbamoL [Robaxin] 500 mg PO Q6H PRN #20 tablet 12/02/22 04/10/23 oxyCODONE [Roxicodone] 5 mg PO Q6H PRN #15 tablet 12/02/22 04/10/23 Chlorthalidone 25 mg PO DAILY 04/10/23 04/10/23 Dabigatran Etexilate Mesylate 150 mg PO BID 04/10/23 04/10/23 [Dabigatran Etexilate] - Allergies Allergies/Adverse Reactions: Allergies Allergy/AdvReac Type Severity Reaction Status Date / Time No Known Drug Allergies Allergy Verified 04/10/23 22:04 - Social History Does the pt smoke?: No Smoking Status: Never smoker Does the pt drink ETOH?: Yes Does the pt have substance abuse?: No - POLST Patient has POLST: No PD ED PE NORMAL - Vitals Vital signs reviewed: Yes - General General: Alert and oriented X 3, Well developed/nourished - HEENT HEENT: Atraumatic - Neck Neck: Supple, no meningeal sign - Cardiac Cardiac: Strong equal pulses, Other (irregularly irregular rhythm) - Respiratory Respiratory: Clear bilaterally, Other (tachypnea) - Abdomen Abdomen: Soft, Non tender, Non distended - Derm Derm: Normal color, Warm and dry - Extremities Extremities: No deformity, No tenderness to palpate, Normal ROM s pain, No edema - Neuro Neuro: Alert and oriented X 3, 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, No motor deficit, Normal speech Results - Vitals Vitals: Vital Signs - 24 hr 04/10/23 04/10/23 04/10/23 21:55 22:00 22:30 Temperature 36.9 C Heart Rate 70 73 78 Respiratory 21 17 18 Rate Blood Pressure 135/80 H 150/102 H 139/85 H O2 Saturation 98 95 98 If not protocol 2 : Oxygen Flow, liters/minute 04/10/23 04/11/23 04/11/23 23:54 00:00 01:04 Temperature Heart Rate 70 70 70 Respiratory 16 17 20 Rate Blood Pressure 178/91 H 131/81 H 131/80 H O2 Saturation 97 97 97 If not protocol : Oxygen Flow, liters/minute Oxygen O2 Source Room air - Labs Labs: Laboratory Tests 04/10/23 04/10/23 04/10/23 22:09 22:09 22:09 WBC 8.2 RBC 4.37 L Hgb 14.2 Hct 42.4 MCV 97.0 H MCH 32.5 H MCHC 33.5 RDW 13.2 Plt Count 219 MPV 9.4 Neut # (Auto) 5.5 Lymph # (Auto) 1.5 Maury # (Auto) 1.0 Eos # (Auto) 0.1 Baso # (Auto) 0.1 Absolute Nucleated RBC 0.00 Nucleated RBC % 0.0 PT 15.2 H INR 1.4 H Sodium 133 L Potassium 4.4 Chloride 98 L Carbon Dioxide 23 Anion Gap 12.0 BUN 34 H Creatinine 2.0 H Estimated GFR (MDRD) 32 L Glucose 101 Calcium 9.6 Magnesium 1.7 Total Bilirubin 0.7 AST 23 ALT 19 Alkaline Phosphatase 81 Troponin I High Sens B-Natriuretic Peptide Cancelled Total Protein 6.3 L Albumin 4.0 Globulin 2.3 Albumin/Globulin Ratio 1.7 Nasal Adenovirus (PCR) Nasal B. parapertussis DNA (PCR) Nasal Coronavir 229E PCR Nasal Coronavir HKU1 PCR Nasal Coronavir NL63 PCR Nasal Coronavir OC43 PCR Nasal Enterovir/Rhinovir PCR Nasal Influenza B PCR Nasal Influenza A PCR Nasal Parainfluen 1 PCR Nasal Parainfluen 2 PCR Nasal Parainfluen 3 PCR Nasal Parainfluen 4 PCR Nasal RSV (PCR) Nasal B.pertussis DNA PCR Nasal C.pneumoniae (PCR) Tenzin Human Metapneumo PCR Nasal M.pneumoniae (PCR) Nasal SARS-CoV-2 (PCR) 04/10/23 04/10/23 04/10/23 22:09 22:09 23:00 WBC RBC Hgb Hct MCV MCH MCHC RDW Plt Count MPV Neut # (Auto) Lymph # (Auto) Maury # (Auto) Eos # (Auto) Baso # (Auto) Absolute Nucleated RBC Nucleated RBC % PT INR Sodium Potassium Chloride Carbon Dioxide Anion Gap BUN Creatinine Estimated GFR (MDRD) Glucose Calcium Magnesium Total Bilirubin AST ALT Alkaline Phosphatase Troponin I High Sens 22.2 H* B-Natriuretic Peptide 210 H Total Protein Albumin Globulin Albumin/Globulin Ratio Nasal Adenovirus (PCR) NOT DETECTED Nasal B. parapertussis DNA (PCR) NOT DETECTED Nasal Coronavir 229E PCR NOT DETECTED Nasal Coronavir HKU1 PCR NOT DETECTED Nasal Coronavir NL63 PCR NOT DETECTED Nasal Coronavir OC43 PCR NOT DETECTED Nasal Enterovir/Rhinovir PCR DETECTED A Nasal Influenza B PCR NOT DETECTED Nasal Influenza A PCR NOT DETECTED Nasal Parainfluen 1 PCR NOT DETECTED Nasal Parainfluen 2 PCR NOT DETECTED Nasal Parainfluen 3 PCR NOT DETECTED Nasal Parainfluen 4 PCR NOT DETECTED Nasal RSV (PCR) NOT DETECTED Nasal B.pertussis DNA PCR NOT DETECTED Nasal C.pneumoniae (PCR) NOT DETECTED Tenzin Human Metapneumo PCR NOT DETECTED Nasal M.pneumoniae (PCR) NOT DETECTED Nasal SARS-CoV-2 (PCR) NOT DETECTED PD Medical Decision Making - ED course Complexity details: reviewed old records, reviewed results, re-evaluated patient, considered differential, d/w patient, d/w family ED course: Shortness of breath and chest pain. Patient does appear to be hyperventilating on exam, however he is saturating 100% on room air and lungs are clear to auscultation bilaterally. Laboratory work, CXR, ABG ordered. Due to patient's respiratory status will also order CTA. Laboratory work is reviewed. Unable to obtain ABG due to difficult access. Minor elevation in high-sensitivity troponins, however expected given patient's age and much lower than expected especially considering that patient has had chest pain for multiple hours. Other laboratory work is unremarkable -patient has chronic kidney disease, this is approximately the patient's baseline. CT angio pending. IV fluids ordered due to CT contrast given with chronic kidney disease. CT angio shows findings concerning for viral pneumonia. Patient did test positive for rhinovirus. He is currently sleeping comfortably in bed, no hyperventilation has been observed for several hours. Patient counseled on all lab and imaging findings. Patient's oxygen saturations stable on room air. They do dip briefly into the low 90s when sleeping, however patient has ANISH and wears a nightly CPAP machine. Patient expressed understanding and is eager to go home. He requested that we call his to drive him from the ER. Departure - Departure Disposition: 01 Home, Self Care Clinical Impression: Rhinovirus Dyspnea Qualifiers: Dyspnea type: unspecified Qualified Code(s): R06.00 - Dyspnea, unspecified Condition: Stable Instructions: ED Viral Syndrome Forms: PCP List Discharge Date/Time: 04/11/23 01:04
--- NOTE | 2023-04-11 00:41 | CT Report ---
PROCEDURE: ANGIO CHEST W/WO INDICATIONS: severe dyspnea, CP CONTRAST: 100 MO OMNI 300 TECHNIQUE: After the administration of intravenous contrast, 2 mm axial images were acquired from the pulmonary apices to the posterior costophrenic angles during the arterial phase. In addition, 1 mm lung kernel and 5 mm soft tissue kernel reconstructions were performed. 3-dimensional coronal oblique maximum int ensity projection (MIP) reformats, 8 mm axial MIP, and 5 mm coronal and sagittal MPR reformats were t hen performed through the thorax. For radiation dose reduction, the following was used: automated exp osure control, adjustment of mA and/or kV according to patient size. COMPARISON: FINDINGS: Image quality: Significantly diminished by arms down positioning.. Large vessels: No filling defects within the opacified pulmonary arteries, accounting for motion and contrast timing. No evidence of acute aortic syndrome or aortic aneurysm. Lungs and pleura: There is patchy alveolar airspace infiltration which by appearance is potentially a manifestation of atypical/viral pneumonia. However, cardiogenic pulmonary edema also could produce t his appearance. No pleural effusions. No pneumothorax. No suspicious pulmonary nodules which require follow up. Mediastinum: Heart size is normal. No pericardial effusion. No large vessel abnormality. No mediastin al adenopathy by size criteria. Chest wall and lower neck: Thyroid is unremarkable. No axillary or supraclavicular adenopathy by size . Bones: No aggressive osseous abnormality. Upper Abdomen: Unremarkable. IMPRESSION: No pulmonary embolus. Mild to moderate patchy alveolar edema pattern, potentially a manifestation of atypical/viral pneumon ia. Reviewed by: Merrill Avina MD on 04/11/2023 12:40 AM [facility] Approved by: Merrill Avina MD on 04/11/2023 12:40 AM PST Station ID: [id number]
[2023-04-11 01:07] VITALS: BP 131/80
== END 2023-04-11 01:04 | disposition home or self-care (01) ==
LOC: EDUNIT# → ED 21:55
DX: B34.8 Other viral infections of unspecified site (principal); R06.00 Dyspnea, unspecified; I10 Essential (primary) hypertension; E78.00 Pure hypercholesterolemia, unspecified; I48.91 Unspecified atrial fibrillation; Z11.52 Encounter for screening for COVID-19; Z79.01 Long term (current) use of anticoagulants; Z79.899 Other long term (current) drug therapy
CPT/HCPCS: 36415; 36600; 71045; 71275; 80053; 83735; 83880; 84484; 85025; 85610; 87633; 93005; 99283; 99284; Q9967; 82803

== ENCOUNTER 2023-05-05 07:08 | Outpatient (CLI) | payer MEDICARE, OTHER ==
[2023-05-05 07:42] LABS: CALCIUM 10.1 mg/dL (8.5-10.3); CREATININE 1.7 mg/dL (0.6-1.3); POTASSIUM 4.7 mmol/L (3.5-4.5)
[2023-05-05 11:21] LABS: ESTIMATED AVERAGE GLUCOSE 134 mg/dL (70-100); HEMOGLOBIN A1c% 6.3 % (4.27-6.07)
== END 2023-05-05 07:09 | disposition home or self-care (01) ==
LOC: LAB 07:08
PROVIDERS: ATTEND Family Medicine
DX: E11.22 Type 2 diabetes mellitus with diabetic chronic kidney disease (principal); N18.32 Chronic kidney disease, stage 3b
CPT/HCPCS: 36415; 80048; 83036

== ENCOUNTER 2023-08-06 07:28 | Outpatient (CLI) | payer MEDICARE, OTHER ==
[2023-08-06 08:44] LABS: CALCIUM 9.9 mg/dL (8.5-10.3); CREATININE 1.7 mg/dL (0.6-1.3); POTASSIUM 4.7 mmol/L (3.5-4.5)
[2023-08-06 14:00] LABS: ESTIMATED AVERAGE GLUCOSE 131 mg/dL (70-100); HEMOGLOBIN A1c% 6.2 % (4.27-6.07)
== END 2023-08-06 07:29 | disposition home or self-care (01) ==
LOC: LAB 07:28
PROVIDERS: ATTEND Family Medicine
DX: I12.9 Hypertensive chronic kidney disease with stage 1 through stage 4 chronic kidney disease, or unspecified chronic kidney disease (principal); E11.22 Type 2 diabetes mellitus with diabetic chronic kidney disease; N18.31 Chronic kidney disease, stage 3a
CPT/HCPCS: 36415; 80048; 83036

== ENCOUNTER 2023-08-11 15:15 | Outpatient (CLI) | payer MEDICARE, OTHER ==
--- NOTE | 2023-08-11 15:40 | Sleep Patient Instructions ---
Sleep Center Visit Summary - Patient Visit Information Reason for Visit: Annual follow-up - Patient Instructions Additional Instructions: You will continue with CPAP therapy with pressure changed to 11/7 cmH2O. A supply prescription will be updated with your DME. We encourage you to continue to try to lose weight. Please follow up with the sleep care office in 1 year. - Clinic Information Contact: [facility] [address] [place] [address] [email or web address] T: [phone]
--- NOTE | 2023-08-11 15:44 | SLEEP CARE CONSULTATION ---
Information from patient questionnaire entered by Jairo Glover. I have reviewed and concur with the information entered by Jairo Glover. This document represents the service I personally performed and the decisions made by me, Lalita Trammell ARNP. 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 (in 2012) Reason for follow up: annual (LAST SEEN 07/2022) Equipment type: BiPAP (RESMED Aircurve 10 V/Auto s/u 03/2021; SD CARD NEEDED FOR DOWNLOAD AND PRESSURE CHANGES) Equipment obtained from: Other ([facility] : getting supplies as needed) Mask style: Nasal pillows (Pilaro) Backup mask available: Yes Last cushion change: 2 weeks Prior sleep studies: Yes Year and Where: 2012 [facility] Type of Sleep Study: Polysomnography HPI additional information: LANE LONG was diagnosed to have severe, AHI 46.7, central sleep apnea-hypopnea syndrome and returned today for BIPAP therapy annual follow-up. Sleep Study - Results Type of Sleep Study: Polysomnography Prior sleep studies: Yes Year and Where: 2012 [facility] CPAP Compliance Data - Data Reviewed with Patient Average duration of nightly device use: 8 HRS 52 MINS Compliance rate %: 100 (08/09/22-08/08/23; 365/365 days used) Current pressure setting (cmH2O): 12/7 Average residual AHI: 8.0 Central apnea: 5.1 Obstructive apnea: 1 Hypopnea: 1 Average large leak: 3.8 L/min Subjective Patient concerns: reports: dry mouth, nose, throat (dry mouth, very occasional), other (bloating throughout the day). denies: aerophagia, mask discomfort, air blowing in eyes, mask leak noise, condensation in mask/hose, nasal congestion, epistaxis Observed to snore while using device: Yes (sometimes) Current pressure setting perceived as: comfortable On therapy, patient: reports: sleeping better, awakening more refreshed, being more awake and alert during the day, more rested overall. denies: drowsiness while driving Initial [place] Sleepiness Scale score: 11 (in 2012) Current [place] Sleepiness Scale score: 12 (08/11/23) Allergies and Home Medications Known drug allergies: No Drug allergies reviewed: Yes Home medication list reviewed: Yes (no changes) Allergy and home medication list: Allergies No Known Drug Allergies Allergy (Verified 08/09/23 11:21) Review of Systems Review of systems same as previous: Yes (NO CHANGE) Physical Exam Vital signs obtained and entered by: JAIRO Mccabe MA Blood Pressure: 117/67 (LEFT ARM) Cuff size: regular Heart Rate: 70 O2 Saturation: 92 Height: 6 ft Weight: 191 lb 9.6 oz Body Mass Index: 25.9 BMI Classification: Overweight Impression and Plan 1. Central Sleep Apnea-Hypopnea Syndrome, severe, with good treatment compliance and fair apnea control with mildly elevated residual AHI. On BiPAP therapy, the patient has better sleep quality and is more rested overall. The patients pressure will be changed to autoCPAP 11/7 cmH20 for elevation of residual AHI. Patient advised to contact me if pressure change is uncomfortable so that it can be adjusted. Goals for apnea control discussed. Patient has significant improvement of their sleep apnea although it is slightly ineffective and is satisfied with current CPAP therapy. Patient denies problems with oral dryness, nasal congestion, epistaxis, skin irritation or aerophagia. Patient's apnea severity and rationale for treatment to reduce apnea, improve sleep quality and reduce cardiovascular and cerebrovascular events was reviewed. I also reviewed the benefit of consistent device use of BiPAP for hypertension and arrhythmia. 2. Overweight, unspecified. Currently patients BMI is 25.9. Obesity increases the risk of apnea, BIPAP pressure requirements and overall health risks especially cardiovascular and diabetes. Thus patient is advised to maintain he althy weight. * Change BiPAP pressure to 11/7 cmH2O * Update supply prescription * Notify me if snoring with mask or feeling that the pressure is too much or too little * Attempt to lose weight * Call this office if any problems using BiPAP * Return for follow up in 12 months, or sooner if concerns arise Adjust device pressure to (cmH2O): 11/7 Counseling Topics: Spare mask, Weight control Prescriptions: Device supplies Follow up with Sleep Care in: 1 year Visit Type: In Office Time Spent with Patient (minutes): 21 Provider Statement: I spent 100% of the Face to Face Visit with the patient with greater than 50% spent counseling the patient and coordination of care.
[2023-08-11 15:46] VITALS: BP 117/67; O2SAT 92
== END 2023-08-11 15:16 | disposition home or self-care (01) ==
LOC: SC 15:15
PROVIDERS: ATTEND Nurse Practitioner Family
DX: G47.31 Primary central sleep apnea (principal); E66.3 Overweight; Z68.25 Body mass index [BMI] 25.0-25.9, adult
CPT/HCPCS: 99213; G0463; 99212

== ENCOUNTER 2023-09-15 10:36 | Outpatient (CLI) | payer MEDICARE, OTHER ==
[2023-09-15 11:20] LABS: BASOPHILS % (AUTO) 0.8 %; EOSINOPHILS # (AUTO) 0.2 10^3/uL (0.0-0.7); HCT - HEMATOCRIT 40.9 % (42.0-52.0); HGB - HEMOGLOBIN 13.3 g/dL (14.0-18.0); LYMPHOCYTES # (AUTO) 1.4 10^3/uL (1.5-3.5); LYMPHOCYTES % (AUTO) 27.9 %; MEAN CORPUSCULAR HEMOGLOBIN 32.7 pg (27.0-31.0); MEAN CORPUSCULAR HGB CONC 32.5 g/dL (32.0-36.0); MEAN CORPUSCULAR VOLUME 100.5 fL (80.0-94.0); MEAN PLATELET VOLUME 9.9 fL (7.4-11.4); MONOCYTES # (AUTO) 0.8 10^3/uL (0.0-1.0); MONOCYTES % (AUTO) 15.6 %; NEUTROPHILS # (AUTO) 2.6 10^3/uL (1.5-6.6); NEUTROPHILS % (AUTO) 52.3 %; PLT - PLATELET COUNT 173 10^3/uL (130-450); RED BLOOD COUNT 4.07 10^6/uL (4.70-6.10); RED CELL DISTRIBUTION WIDTH 14.6 % (12.0-15.0)
== END 2023-09-15 10:37 | disposition home or self-care (01) ==
LOC: LAB 10:36
PROVIDERS: ATTEND Internal Medicine Cardiovascular Disease
DX: I36.1 Nonrheumatic tricuspid (valve) insufficiency (principal); G93.32 Myalgic encephalomyelitis/chronic fatigue syndrome
CPT/HCPCS: 36415; 84443; 85025

== ENCOUNTER 2023-09-28 15:52 | Outpatient (CLI) | payer MEDICARE, OTHER | END 2023-09-28 15:53 | disposition home or self-care (01) | LOC: LAB 15:52 | PROVIDERS: ATTEND Family Medicine | DX: I48.91 Unspecified atrial fibrillation (principal) | CPT/HCPCS: 36416; 85610 ==

== ENCOUNTER 2023-10-05 10:03 | Outpatient (CLI) | payer MEDICARE, OTHER | END 2023-10-05 10:04 | disposition critical access hospital (66) | LOC: EMS 10:03 | DX: R29.810 Facial weakness (principal); G81.91 Hemiplegia, unspecified affecting right dominant side; R47.81 Slurred speech; I48.91 Unspecified atrial fibrillation; Z79.01 Long term (current) use of anticoagulants; Z95.0 Presence of cardiac pacemaker | CPT/HCPCS: A0425; A0429 ==

== ENCOUNTER 2023-10-05 10:10 | Emergency (ER) | payer MEDICARE, OTHER ==
[2023-10-05] MEDS ORDERED: iohexoL-300 100 ML VIAL ONE (10:32)
[2023-10-05] MEDS: iohexoL-300 100 ML VIAL IVP ONE (10:36)
[2023-10-05 10:39] LABS: BASOPHILS % (AUTO) 0.6 %; EOSINOPHILS # (AUTO) 0.1 10^3/uL (0.0-0.7); EOSINOPHILS % (AUTO) 1.3 %; HCT - HEMATOCRIT 34.3 % (42.0-52.0); HGB - HEMOGLOBIN 11.1 g/dL (14.0-18.0); LYMPHOCYTES # (AUTO) 0.8 10^3/uL (1.5-3.5); LYMPHOCYTES % (AUTO) 13.2 %; MEAN CORPUSCULAR HEMOGLOBIN 32.7 pg (27.0-31.0); MEAN CORPUSCULAR HGB CONC 32.4 g/dL (32.0-36.0); MEAN CORPUSCULAR VOLUME 101.2 fL (80.0-94.0); MEAN PLATELET VOLUME 9.7 fL (7.4-11.4); MONOCYTES # (AUTO) 0.7 10^3/uL (0.0-1.0); MONOCYTES % (AUTO) 11.8 %; NEUTROPHILS # (AUTO) 4.6 10^3/uL (1.5-6.6); NEUTROPHILS % (AUTO) 72.8 %; PLT - PLATELET COUNT 137 10^3/uL (130-450); RED BLOOD COUNT 3.39 10^6/uL (4.70-6.10); RED CELL DISTRIBUTION WIDTH 14.5 % (12.0-15.0); WHITE BLOOD COUNT 6.3 x10^3/uL (4.8-10.8)
--- NOTE | 2023-10-05 10:51 | CT Report ---
PROCEDURE: Angio Head/Neck INDICATIONS: R sided deficits/eliquis/onset 0935 TECHNIQUE: After the administration of intravenous contrast, 1 mm thick sections acquired from the aortic arch t hrough the [place] of [place]. 3-dimensional quhmrrv-prsamauxz-zkjfrsvwcv (MIP) and/or volume renderin g reformats were acquired of the central intracranial vasculature and neck separately. For radiation dose reduction, the following was used: automated exposure control, adjustment of mA and/or kV acco rding to patient size. CONTRAST: Omni 300 80ml COMPARISON: CT angiogram of the neck dated 12/02/2022. FINDINGS: Image quality: Diagnostic. HEAD CT: CSF Spaces: Basal cisterns are patent. No extra-axial fluid collections. Ventricles are normal in size and shape. Brain: No significant abnormality is seen for scanning technique. Skull and face: Calvarium and visualized facial bones appear intact, without suspicious lesions. Sinuses: Visualized sinuses and mastoids are clear. HEAD CT ANGIOGRAPHY: Anterior circulation: Dense atheromatous calcifications are present near the origin of the right inte rnal carotid artery with near occlusive stenosis. The more superior regions of the right internal car otid artery are patent. Dense calcifications are present within the cavernous portion of the right in ternal carotid artery with approximately 50% luminal narrowing. There may be trace flow within the le ft internal carotid artery; however this appears markedly less radiodense than the contralateral inte rnal carotid artery. The right anterior cerebral and middle cerebral arteries demonstrate normal cour se and caliber. The left anterior cerebral artery demonstrates normal opacification, course and calib er. There is likely reconstitution of the distal left middle cerebral artery via collateral flow. Posterior circulation: Visualized portions of the vertebral arteries demonstrate normal caliber, and join to form a normal appearing basilar artery. Flow within the posterior cerebral arteries is norm al and symmetric. No aneurysms are seen. NECK CT ANGIOGRAPHY: Carotid system: The great vessels demonstrate a conventional anatomy as they arise from the aortic a rch. The origins of the common carotid arteries appear patent. The right common carotid artery demon strates normal caliber with mild atheromatous calcification. The left common carotid artery is occlud ed at the level of C7. This is a new finding when compared with the prior CT angiogram of the neck da nikhil 12/02/2022. Dense atheromatous calcifications are present at the right carotid bulb with approxima tely 50% luminal narrowing. The left carotid bulb is occluded. Posterior circulation: Dense calcifications are present near the origin of the right vertebral artery with approximately 50% luminal narrowing. Dense atheromatous calcifications are present near the agatha gin of the left vertebral artery with greater than 50% luminal stenosis. The more superior extracrani al portions of both vertebral arteries also demonstrate normal courses and calibers. They join to fo rm a normal appearing basilar artery. Soft tissues: Visualized neck soft tissues demonstrate no suspicious abnormalities. Bones: No suspicious bony lesions. Marked facet sclerosis, intervertebral disc space narrowing and o steophytosis. IMPRESSION: 1. 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 2. Likely occlusion of the left internal carotid artery versus markedly diminished flow. These findings were discussed with Dr. Mathews at 10:43 AM on 10/05/2023. 3. Near occlusive stenosis of the proximal right internal carotid artery secondary to dense atheromat ous calcifications. 4. 50% stenosis of the cavernous portion of the right internal carotid artery. 5. Moderate to high-grade stenoses at the origins of the bilateral vertebral arteries. The estimate of stenosis included in the report of the imaging study was calculated using the NASCET method Reviewed by: Donna Petty MD on 10/05/2023 10:50 AM PDT Approved by: Donna Petty MD on 10/05/2023 10:50 AM PDT Station ID: [id number]
--- NOTE | 2023-10-05 10:54 | CT Report ---
PROCEDURE: Head WO INDICATIONS: R sided deficits/eliquis/onset 0935 TECHNIQUE: Noncontrast 4.5 mm thick angled axial sections acquired from the foramen magnum to the vertex. For r adiation dose reduction, the following was used: automated exposure control, adjustment of mA and/or kV according to patient size. COMPARISON: None. FINDINGS: Image quality: Excellent. CSF spaces: Basal cisterns are patent. No extra-axial fluid collections. Ventricles are mildly enl arged, likely associated with global volume loss. Brain: No midline shift. No intracranial masses or hemorrhage. There are diffuse periventricular an d deep white matter hypodensities. Skull and face: Calvarium and visualized facial bones are intact, without suspicious lesions. Sinuses: Visualized sinuses and mastoids are clear. IMPRESSION: No acute intracranial pathology. Extensive findings likely associated with chronic microvascular ischemic changes. Reviewed by: Donna Petty MD on 10/05/2023 10:52 AM PDT Approved by: Donna Petty MD on 10/05/2023 10:52 AM PDT Station ID: [id number]
[2023-10-05 10:55] LABS: ALBUMIN 3.6 g/dL (3.2-5.5); ALBUMIN/GLOBULIN RATIO 1.6 (1.0-2.2); CALCIUM 9.1 mg/dL (8.5-10.3); CREATININE 1.4 mg/dL (0.6-1.3); POTASSIUM 4.1 mmol/L (3.5-4.5); TOTAL PROTEIN 5.8 g/dL (6.4-8.9)
--- NOTE | 2023-10-05 11:24 | ED Physician Documentation ---
PD HPI FOCAL NEURO - Stated complaint Stated Complaint: CODE STROKE - Chief complaint Chief Complaint: Neuro - History obtained from History obtained from: Patient, Family, EMS - Additional information Additional information: Patient is an 88-year-old male with a history of A-fib on Eliquis, pacemaker, presenting for evaluation of sudden onset of right-sided weakness starting at 935 this morning. Per , patient was seen normally prior to that and all of a sudden he was unable to move the right side of his body and had changes to his speech. When EMS arrived he had no movement of the right arm or leg and had right-sided facial droop. Per patient he is currently on Eliquis. However he was on Pradaxa for a week or so as he was unable to get Eliquis filled. Review of Systems Neurologic: reports: Focal weakness, Headache PD PAST MEDICAL HISTORY - Past Medical History Cardiovascular: Hypertension, High cholesterol, Atrial fibrillation Respiratory: Sleep apnea, CPAP use Neuro: None Endocrine/Autoimmune: None GI: None : None HEENT: Chronic hearing loss Psych: None Musculoskeletal: Osteoarthritis Derm: None - Past Surgical History Past Surgical History: Yes Ortho: Spine surgery Cardiovascular: Pacemaker - Present Medications Home Medications: Ambulatory Orders Medication Instructions Recorded Confirmed Atorvastatin [Lipitor] 20 mg PO DAILY PM 10/12/18 10/05/23 Finasteride 5 mg PO DAILY PM 10/12/18 10/05/23 Ipratropium [Atrovent] 2 puffs INH TID 10/12/18 10/05/23 Tamsulosin [Flomax] 0.4 mg PO DAILY PM 10/12/18 10/05/23 Acetaminophen [Acetaminophen ER] 650 mg PO PRN PRN 01/24/19 10/05/23 Metoprolol Succinate [Toprol Xl] 50 mg PO DAILY PM 01/24/19 10/05/23 Dabigatran Etexilate Mesylate 150 mg PO BID 04/10/23 10/05/23 [Dabigatran Etexilate] Magnesium 500 mg ORAL DAILY 08/11/23 10/05/23 predniSONE [Deltasone] See Rx Instructions .ROUTE .COMPLEX 08/11/23 10/05/23 Dabigatran Etexilate Mesylate 150 mg PO BID 10/05/23 10/05/23 [Dabigatran Etexilate] - Allergies Allergies/Adverse Reactions: Allergies Allergy/AdvReac Type Severity Reaction Status Date / Time No Known Drug Allergies Allergy Verified 10/05/23 10:28 - Social History Does the pt smoke?: No Smoking Status: Never smoker Does the pt drink ETOH?: Yes Does the pt have substance abuse?: No - POLST Patient has POLST: No PD ED PE NORMAL - General General: Alert and oriented X 3, No acute distress, Well developed/nourished - HEENT HEENT: Atraumatic, PERRL, EOMI, Moist mucous membranes, Pharynx benign - Neck Neck: Supple, no meningeal sign - Cardiac Cardiac: Other (Irregularly irregular, normal rate) - Respiratory Respiratory: No respiratory distress, Clear bilaterally - Abdomen Abdomen: Normal bowel sounds, Soft, Non tender, Non distended - Derm Derm: Warm and dry - Neuro Neuro: Alert and oriented X 3. No: stock controller 2-12 intact (Right-sided facial droop), No motor deficit (Right arm and leg weakness), Normal speech (Slurred speech) NIHSS - Time Time: 10:15 - Level of Consciousness Level of consciousness: (0) Alert, Keenly responsive LOC Questions: (0) Answers both Q's correct LOC Commands: (0) Performs both correctly - Gaze Best Gaze: (0) Normal - Visual Visual: (0) No loss - Facial Palsy Facial Palsy: (2) Partial paralysis - Motor Arms (both separate) Motor Arm (right): (4) No movement Motor Arm (left): (0) No drift - Motor Legs (both separate) Motor Leg (right): (4) No movement Motor Leg (left): (0) No drift - Limb Ataxia Limb Ataxia: (1) Present in 1 limb - Sensory Sensory: (1) Krny-wt-vzwqysoo loss - Best Language Best Language: (0) No aphasia - Dysarthria Dysarthria: (1) Zcji-[id number] dysarthria - Extinction and Inattention (formally neg Extinction and inattention: (0) No abnormality - Total Score/Results Total Score/Result: 13 Results - Vitals Vitals: Vital Signs - 24 hr 10/05/23 10/05/23 10/05/23 10:28 11:07 11:54 Temperature 36.6 C 36.1 C L Heart Rate 70 70 70 Respiratory 22 15 18 Rate Blood Pressure 132/78 H 156/89 H 150/89 H O2 Saturation 96 94 98 10/05/23 10/05/23 10/05/23 12:00 12:30 13:00 Temperature 36.8 C Heart Rate 76 76 72 Respiratory 21 22 18 Rate Blood Pressure 162/105 H 160/100 H 175/108 H O2 Saturation 95 96 97 10/05/23 10/05/23 10/05/23 13:30 14:00 15:00 Temperature Heart Rate 70 70 70 Respiratory 16 15 24 Rate Blood Pressure 167/96 H 176/90 H 167/100 H O2 Saturation 100 98 99 10/05/23 10/05/23 10/05/23 15:30 16:00 16:30 Temperature 36.8 C Heart Rate 70 70 70 Respiratory 22 15 16 Rate Blood Pressure 164/94 H 166/93 H 161/92 H O2 Saturation 99 98 97 Oxygen O2 Source Room air - Labs Labs: Laboratory Tests 10/05/23 10/05/23 10/05/23 10:29 10:34 10:34 WBC 6.3 RBC 3.39 L Hgb 11.1 L Hct 34.3 L MCV 101.2 H MCH 32.7 H MCHC 32.4 RDW 14.5 Plt Count 137 MPV 9.7 Neut # (Auto) 4.6 Lymph # (Auto) 0.8 L Stokes # (Auto) 0.7 Eos # (Auto) 0.1 Baso # (Auto) 0.0 Absolute Nucleated RBC 0.00 Nucleated RBC % 0.0 INR (Fingerstick) 1.7 H Sodium 133 L Potassium 4.1 Chloride 101 Carbon Dioxide 27 Anion Gap 5.0 L BUN 18 Creatinine 1.4 H Estimated GFR (MDRD) 48 L Glucose 153 H POC Whole Bld Glucose Calcium 9.1 Total Bilirubin 1.0 AST 41 ALT 18 Alkaline Phosphatase 72 Total Protein 5.8 L Albumin 3.6 Globulin 2.2 Albumin/Globulin Ratio 1.6 Lipase 22 10/05/23 10:50 WBC RBC Hgb Hct MCV MCH MCHC RDW Plt Count MPV Neut # (Auto) Lymph # (Auto) Stokes # (Auto) Eos # (Auto) Baso # (Auto) Absolute Nucleated RBC Nucleated RBC % INR (Fingerstick) Sodium Potassium Chloride Carbon Dioxide Anion Gap BUN Creatinine Estimated GFR (MDRD) Glucose POC Whole Bld Glucose 143 H Calcium Total Bilirubin AST ALT Alkaline Phosphatase Total Protein Albumin Globulin Albumin/Globulin Ratio Lipase PD Medical Decision Making - ED course Complexity details: reviewed results, re-evaluated patient, d/w patient, d/w family, d/w communication consultant ED course: Patient is an 88-year-old male with a history of A-fib who is currently on Eliquis presenting for evaluation of right-sided weakness starting suddenly at 935 this morning. Still with significant deficits on arrival. CT head and CT head and angio were obtained. CT head is negative for bleed but angios are concerning for occlusion of the left common carotid and left internal carotid. Patient was seen by telestroke. He is not a TNK candidate given his history of being on Eliquis. His symptoms did suddenly improve here and he was an NIH of 0. However given CT findings and the fact that we are not able to perform an MRI in a patient who has a pacemaker, telestroke recommended transfer. Reviewed the case with Bill Thomas and spoke with both her surtass analyst as well as her hospitalist and patient will be transferred there via [facility]. 1035 - Telestroke Dr. Lobo - Patient is not a TNKase candidate because he is on Eliquis. It is also reassuring that his deficits have resolved.She will evaluate the CT head as well as CT head and neck angios. She recommends holding the Eliquis for now. We are not able to obtain an MRI and there is nothing acute on his initial CT scan she would recommend repeating the CT in 24 hours. 1100 - Discussed again with telestroke that there are findings of occlusions in the left common carotid as well as the internal carotid. She will review the images with specialist at [facility] and call us back. 1303 - Discussed with ICU at [facility]. They do accept patient but will decide whether he needs ICU level of care or not. Subsequently spoke to hospitalist, Dr. Garcia who accepts patient for transfer. Departure - Departure Disposition: 02 Transfer Acute Care Hosp Clinical Impression: CVA (cerebral vascular accident), Atrial fibrillation Condition: Good Forms: PCP List Discharge Date/Time: 10/05/23 17:00
[2023-10-05] MEDS ORDERED: ASPIRIN EC 325 MG TABLET PO STA (11:36)
[2023-10-05] MEDS: ATORVASTATIN 40 MG TABLET PO STA ×2 (13:01→13:04)
[2023-10-05] MEDS: ASPIRIN CHEW 81 MG TABLET PO STA ×2 (13:01→13:04)
[2023-10-05] MEDS: CLOPIDOGREL 75 MG TABLET PO STA ×2 (13:01→13:03)
[2023-10-05 16:48] VITALS: BP 161/92; O2SAT 97
== END 2023-10-05 17:00 | disposition short-term general hospital (02) ==
LOC: EDUNIT# → EDSEX → ED 10:10
DX: I63.232 Cerebral infarction due to unspecified occlusion or stenosis of left carotid arteries (principal); R29.810 Facial weakness; G81.91 Hemiplegia, unspecified affecting right dominant side; R47.02 Dysphasia; I10 Essential (primary) hypertension; R29.700 NIHSS score 0; I48.91 Unspecified atrial fibrillation; Z79.01 Long term (current) use of anticoagulants; Z95.0 Presence of cardiac pacemaker
CPT/HCPCS: 36415; 70450; 70496; 70498; 80053; 83690; 85025; 85610; 93005; 99284; 99285; A9270; Q9967

== ENCOUNTER 2023-11-03 18:22 | Outpatient (CLI) | payer MEDICARE, OTHER ==
--- NOTE | 2023-11-04 14:06 | Ultrasound Report ---
PROCEDURE: Carotid Doppler Complete INDICATIONS: HISTORY OF CAROTID ENDARTERECTOMY 10/11/23 TECHNIQUE: Color and pulse Doppler interrogation was performed of both carotid systems, with image documentation and velocity measurements. COMPARISON: CTA head/neck 10/05/2023 FINDINGS: Right side: Brachial blood pressure: 177/89 mm Hg. Common carotid artery peak systolic velocity: 35.0 cm/sec. Internal carotid artery peak systolic velocity: 74.9 cm/sec. Internal carotid artery end diastolic velocity: 14.6 cm/sec. External carotid artery peak systolic velocity: 56.0 cm/sec. ICA/CCA peak systolic ratio: 2.1 . Chicas scale imaging description: Extensive calcified atherosclerotic plaque with associated shadowing . Percent internal carotid artery stenosis: Less than 50 percent stenosis. Vertebral artery: Flow direction is antegrade. Left side: Brachial blood pressure: 188/94 mm Hg. Common carotid artery peak systolic velocity: 54.4 cm/sec. Internal carotid artery peak systolic velocity: 117 cm/sec. Internal carotid artery end diastolic velocity: 39.0 cm/sec. External carotid artery peak systolic velocity: 46.2 cm/sec. ICA/CCA peak systolic ratio: 2.2 . Chicas scale imaging description: Postsurgical changes from recent endarterectomy, which obscures bobby cent structures. Percent internal carotid artery stenosis: Less than 50 percent stenosis. Vertebral artery: Flow direction is antegrade. IMPRESSION: Technically difficult exam with suboptimal visualization due to postsurgical changes and extensive ca lcified plaque. 1. In the right internal carotid artery, there is less than 50 percent stenosis based on peak systoli c velocity criteria. 2. Postsurgical changes from left carotid endarterectomy. In the left internal carotid artery, there is less than 50 percent stenosis based on peak systolic velocity criteria. 3. Antegrade blood flow within the right vertebral artery. 4. Antegrade blood flow within the left vertebral artery. 5. Low peak systolic velocities within the common carotid arteries bilaterally, correlate for possibl e reduced cardiac output. The estimate of stenosis included in the report of the imaging study was calculated using the [facility]-end orsed standards of carotid artery stenosis. Reviewed by: German Hoffman MD on 11/04/2023 2:05 PM PDT Approved by: German Hoffman MD on 11/04/2023 2:05 PM PDT Station ID: [id number]
== END 2023-11-03 18:23 | disposition home or self-care (01) ==
LOC: DI 18:22
PROVIDERS: ATTEND Family Medicine
DX: I65.21 Occlusion and stenosis of right carotid artery (principal)
CPT/HCPCS: 93880

== ENCOUNTER 2023-11-26 11:33 | Outpatient (CLI) | payer MEDICARE, OTHER | END 2023-11-26 11:34 | disposition home or self-care (01) | LOC: LAB 11:33 | PROVIDERS: ATTEND Physician Assistant | DX: J02.9 Acute pharyngitis, unspecified (principal) | CPT/HCPCS: 87070 ==

== ENCOUNTER 2024-01-05 14:13 | Outpatient (CLI) | payer MEDICARE, OTHER ==
[2024-01-07 08:11] LABS: HSV-1 DNA Negative (Negative); HSV-2 DNA Negative (Negative)
== END 2024-01-05 14:14 | disposition home or self-care (01) ==
LOC: LAB.R 14:13
PROVIDERS: ATTEND Nurse Practitioner
DX: R21 Rash and other nonspecific skin eruption (principal)
CPT/HCPCS: 87070; 87205; 87529

== ENCOUNTER 2024-01-14 10:03 | Outpatient (CLI) | payer MEDICARE, OTHER ==
[2024-01-14 10:14] LABS: HCT - HEMATOCRIT 38.9 % (42.0-52.0); HGB - HEMOGLOBIN 12.6 g/dL (14.0-18.0); MEAN CORPUSCULAR HEMOGLOBIN 30.1 pg (27.0-31.0); MEAN CORPUSCULAR HGB CONC 32.4 g/dL (32.0-36.0); MEAN CORPUSCULAR VOLUME 93.1 fL (80.0-94.0); MEAN PLATELET VOLUME 10.7 fL (7.4-11.4); RED BLOOD COUNT 4.18 10^6/uL (4.70-6.10); RED CELL DISTRIBUTION WIDTH 14.7 % (12.0-15.0); WHITE BLOOD COUNT 4.1 x10^3/uL (4.8-10.8)
[2024-01-14 10:38] LABS: CREATININE 1.1 mg/dL (0.6-1.3); POTASSIUM 4.9 mmol/L (3.5-4.5)
== END 2024-01-14 10:04 | disposition home or self-care (01) ==
LOC: LAB 10:03
PROVIDERS: ATTEND Internal Medicine Cardiovascular Disease
DX: I50.32 Chronic diastolic (congestive) heart failure (principal)
CPT/HCPCS: 36415; 80048; 85027

== ENCOUNTER 2025-03-26 18:17 | Inpatient (IN) ==
--- NOTE | 2025-03-26 18:23 | ED Physician Documentation ---
History of Present Illness Stated complaint Stated Complaint: AMS, WEAK Chief complaint Chief Complaint: Resp History obtained from History obtained from: Patient and EMS Additonal information Additional information: This is an 89-year-old gentleman who presents by ambulance from home. He has a history of of chronic atrial fibrillation on anticoagulation, hypertension, hyperlipidemia, BiV pacemaker, coronary disease, left carotid stenosis status post carotid endarterectomy, COPD, anemia, ANISH on CPAP. He became acutely ill late this morning around 10 AM with shaking chills, cough and shortness of breath. EMS found him to be hypoxic to 85% on room air, he does not wear oxygen at home. With those numbers he was confused which has improved en route with the administration of supplemental oxygen and a nebulizer treatment. He was also found to be febrile at home with abnormal lung sounds. Meds/Allgy Home Medications Ambulatory Orders Medication Instructions Recorded Confirmed aspirin 81 mg tablet,delayed 81 mg PO QDAY 04/18/24 release (Adult Aspirin Regimen) mupirocin 2 % topical ointment 1 applic topical DAILY #22 grams 10/05/24 10/27/24 (Centany) finasteride 5 mg tablet 5 mg PO QAM 10/27/24 5 tamsulosin 0.4 mg capsule 0.4 mg PO QAM 10/27/2410/27 dabigatran etexilate 150 mg 150 mg PO BID 11/09/2412/15 capsule (Pradaxa) diphenhydramine 25 1 tab PO QPM 11/09/24 mg-acetaminophen 500 mg tablet (Tylenol PM Extra Strength) atorvastatin 20 mg tablet 20 mg PO QPM #90 tabs 02/27/25 ipratropium bromide 42 mcg (0.06 2 spray intranasal BI D #15 mL 02/13/25 02/27/25 %) nasal spray cholecalciferol (vitamin D3) 50 50 mcg PO QDAY 5 02/27/25 mcg (2,000 unit) tablet (Vitamin D3) metoprolol succinate 25 mg 12.5 mg PO BID 02/27/2512/15 tablet,extended release 24 hr Allergies Allergies Allergy/AdvReac Type Severity Reaction Status Date / Time No Known Drug Allergies Allergy Verified 03/26/25 18:28 PFS Active Problems All Active Problems (Updated 03/26/25 @ 19:09 by Leonides Fernandez MD) Acute hypoxemic respiratory failure (Acute) Pneumonia (Acute) Hypervitaminosis (Acute) Numbness (Acute) COPD (chronic obstructive pulmonary disease) (Chronic) GERD (gastroesophageal reflux disease) (Acute) Anemia (Acute) Fall from slip, trip, or stumble (Acute) Acute lumbar myofascial strain (Acute) Alteration in skin integrity (Acute) Left ankle pain (Acute) Lower urinary tract symptoms (LUTS) (Acute) Hypertension, essential, benign (Acute) A-fib (Acute) Kyphosis of cervical region (Acute) Pressure ulcer of unspecified site, unstageable (Acute) Right hand weakness (Acute) Muscle right arm weakness (Acute) History of recent stroke (Acute) Seasonal allergies (Acute) Pressure ulcer (Acute) Vitamin D deficiency (Acute) Fatigue (Acute) 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) Hyperlipidemia (Acute) ANISH on CPAP (Acute) Acute respiratory failure with hypoxia (Acute) BPH (benign prostatic hyperplasia) (Acute) Atrial fibrillation (Acute) Medical History Medical History (Updated 03/26/25 @ 19:09 by Leonides Fernandez MD) Scalp pruritus Mood changes Balance disorder Memory change Tremor Shuffling gait Spinal stenosis, lumbar region with neurogenic claudication Abnormal stool test Hyponatremia Bronchitis Adequate anticoagulation on anticoagulant therapy Gout attack Supratherapeutic INR Acute exacerbation of chronic low back pain Sepsis due to pneumonia Pneumonia Family History Family History Other Arthritis Asthma Cancer Congenital heart disease Depressed Diabetes Heart attack High blood pressure Social History Social History (Updated 02/27/25 @ 15:18 by Estefany Gunn MA) Smoking Status: Former smoker If you are a former smoker, when did you quit? (Date/Year): 1971 Number of Years Smoked: 20 How many cigarettes a day do you smoke? (20 cigarettes=1 Pk): 20 Second hand tobacco smoke exposure: No Do you dip or chew tobacco?: No Do you vape?: No Patient requests smoking cessation consult: No Initiate information on smoking cessation: No Living arrangement: At home Marital Status: Living Condition: With spouse/s.o. Support Person: Yes Physical Activity: Walking Do you feel safe in your home environment?: Yes History of physical, verbal, emotional, or financial abuse?: No ETOH Use: Wine Frequency: Daily Are you sexually active?: No Retired: Yes Service: Yes Dates of Service: [id number] Are you following a diet prescribed by a doctor: No Are you following a special diet: No POLST Patient has POLST: No Exam Exam Vital Signs: Vital Signs x48h Temp Pulse Resp BP Pulse Ox O2 Flow Rate 03/26/25 19:00 2 03/26/25 18:43 70 28 H 116/59 L 97 2 03/26/25 18:22 36.8 C 70 20 153/74 H 98 Constitutional normal general appearance and no apparent distress Respiratory Severe rhonchi on the left Cardiovascular Irregularly irregular without murmur Gastrointestinal abdomen soft to palpation and nontender to palpation Neurology GCS 15 Results Vitals Vitals: Vital Signs - 24 hr 03/26/25 18:22 03/26/25 18:43 03/26/25 19:00 Temperature 36.8 C Temperature Source Oral Pulse Rate 70 70 Respiratory Rate 20 28 H Blood Pressure 153/74 H 116/59 L O2 Saturation 98 97 Oxygen Delivery Method Nasal Cannula O2 Source currently receiving neb Nasal cannula If not protocol: Oxygen Flow, liters/minute 2 2 Pain Intensity 0 Oxygen O2 Source Nasal cannula Labs Labs: Laboratory Tests 03/26/25 18:35 WBC 11.0 H RBC 3.69 L Hgb 12.2 L Hct 35.4 L MCV 95.9 H MCH 33.1 H MCHC 34.5 RDW 14.5 Plt Count 129 L MPV 10.4 Neut # (Auto) 9.1 H Lymph # (Auto) 0.9 L [place] # (Auto) 0.9 Eos # (Auto) 0.0 Baso # (Auto) 0.0 Absolute Nucleated RBC 0.00 Nucleated RBC % 0.0 Sodium 134 L Potassium 4.0 Chloride 100 L Carbon Dioxide 24 Anion Gap 10.0 BUN 23 H Creatinine 1.3 Estimated GFR (MDRD) 52 L Glucose 144 H Lactic Acid 1.1 Calcium 8.9 Total Bilirubin 1.9 H AST 22 ALT 14 Alkaline Phosphatase 83 Total Protein 6.1 L Albumin 3.8 Globulin 2.3 Albumin/Globulin Ratio 1.7 PD Medical Decision Making ED course ED course: 89-year-old gentleman presents with clinical pneumonia, a very acute illness with respiratory failure with hypoxemia. Workup demonstrates pneumonia on x- ray, white count of 11 on CBC with stable anemia otherwise, CMP showing new mild hyponatremia and CKD without SHREYAS. He does require 2 L of oxygen to maintain his sats. PSI score calculated at 108 points. Spoke with PATRICIA Johnson for admission at 7:11 PM. He was administered Rocephin and Zithromax IV after blood cultures. The patient and family are counseled as to the diagnosis and need for admission. This document was made in part using voice recognition software, while efforts are made to proofread this document, sound alike an grammatical errors may occur. Discharge Plan Discharge Patient Disposition: 66 [facility] DC/Xfer Condition: Serious Clinical Impression: Acute hypoxemic respiratory failure Pneumonia Qualifiers: Pneumonia type: due to unspecified organism Laterality: right Lung location: lower lobe of lung Qualified Code(s): J18.9 - Pneumonia, unspecified organism Prescriptions: No Action atorvastatin 20 mg tablet 20 mg PO QPM Qty: 90 0RF ipratropium bromide 42 mcg (0.06 %) spray,non-aerosol 2 spray intranasal BID Qty: 15 3RF Rx Instructions: administer into each nostril finasteride 5 mg tablet 5 mg PO QAM tamsulosin 0.4 mg capsule 0.4 mg PO QAM mupirocin [Centany] 2 % ointment 1 applic topical DAILY Qty: 22 3RF Rx Instructions: Apply to Telfa pad and place over skin tear site. Utilize drsg instructions for remainder of drsg change. dabigatran etexilate [Pradaxa] 150 mg capsule 150 mg PO BID diphenhydramine-acetaminophen [Tylenol PM Extra Strength] 25-500 mg tablet 1 tab PO QPM metoprolol succinate 25 mg tablet extended release 24 hr 12.5 mg PO BID cholecalciferol (vitamin D3) [Vitamin D3] 50 mcg (2,000 unit) tablet 50 mcg PO QDAY aspirin [Adult Aspirin Regimen] 81 mg tablet,delayed release (DR/EC) 81 mg PO QDAY Print Language: Fijian
[2025-03-26 18:47] LABS: HCT - HEMATOCRIT 35.4 % (42.0-52.0); HGB - HEMOGLOBIN 12.2 g/dL (14.0-18.0); MEAN PLATELET VOLUME 10.4 fL (7.4-11.4); NRBC ABSOLUTE COUNT (AUTO) 0.00 x10^3/uL; NUCLEATED RED BLOOD CELLS AUTO 0.0 /100WBC; PLT - PLATELET COUNT 129 10^3/uL (130-450); RED CELL DISTRIBUTION WIDTH 14.5 % (12.0-15.0)
[2025-03-26] MEDS: cefTRIAXone 1 GM VIAL IVP STA (18:49)
[2025-03-26] MEDS: SODIUM CHLORIDE 0.9% 1,000 ML IV STA (18:49)
--- OUTSIDE RECORDS SUMMARY | 2025-03-26 18:52 | EXTERNAL MEDICAL SUMMARY RPT | Continuity of Care Document ---
Author Organization [facility] Address [address] [place] [id number] Phone Care Team Providers Care Sales Agent Pest Control Service Name Role Phone Payam Bates Unavailable Unavailable Allergies and Intolerances date description facility reaction severity 2025-02-07 10:16:29 [facility] (no reactio n) (no severity) Problems date description facility 2025-01-05 00:04 Vitamin D deficiency, unspecifi ed [facility] 2025-01-05 00:04 Encounter for screen ing for diseases of the blood and blood-forming organs and certain disorders involving the immune mechanism [facility] 2025-01-08 15:41 Vitamin D deficiency, unspecifi ed [facility] 2025-01-08 15:41 Encounter for screen ing for diseases of the blood and blood-forming organs and certain disorders involving the immune mechanism [facility] 2025-01-09 09:47 Vitamin D deficiency, unspecifi ed [facility] 2025-01-09 09:47 Cardiomyopathy, unspecified [facility] 2025-01-19 13:45 Vitamin D deficiency, unspecifi ed [facility] 2025-01-19 13:45 Cardiomyopathy, unspecified [facility] 2025-02-07 00:00 Osteoarthritis of right ankle [facility] 2025-02-07 11:45 Primary osteoarthritis, right [facility] 2025-02-07 12:21 Primary osteoarthritis, [facility] 2025-02-09 08:39 Primary osteoarthritis, [facility] 2025-02-19 12:41 Primary osteoarthritis, [facility] 2025-02-22 00:04 Hypervitaminosis D [facility] 2025-03-01 13:51 Anesthesia of skin [facility] 2025-03-01 13:51 Facial weakness [facility] 2025-03-05 09:01 Anesthesia of skin [facility] Procedures date description facility 2025-02-07 00:00 X-ray of right ankle, three or more [facility] Results/Labs test date facility value unit notes Result panel 1 BILIRUBIN,TOTAL 2025-01-04 07:41 [facility] 1.1 mg/dl As of November 2022 testing method has changed, this may include reference ranges. CREATININE 2025-01-04 07:41 [facility] 1.3 mg/dl As of November 2022 testing method has changed, this may include reference ranges. ALBUMIN/GLOBULIN RATIO 2025-01-04 07:41 [facility] 1.8 (missing) (missing) CHLORIDE 2025-01-04 07:41 [facility] 101 mmol/l As of November 2022 testing method has changed, this may include reference ranges. SODIUM 2025-01-04 07:41 [facility] 137 mmol/l Yes ALT ALANINE AMINOTRANSFERASE 2025-01-04 07:41 [facility] 14 iu/l As of November 2022 testing method has changed, this may include reference ranges. VITAMIN D 25-HYDROXY 2025-01-04 07:41 [facility] 146.0 ng/ml Vitamin D deficiency has been defined by the [place] of [employer] and an Endocrine Society practice guideline as a level of serum 25-OH vitamin D less than 20 ng/mL (1,2). The Endocrine Society went on to further define vitamin D insufficiency as a level between 21 and 29 ng/mL (2). 1. IOM ([place] [employer]). 2010. Dietary reference intakes for calcium and D. [place]: The National Academies Press. 2. David MF, Ana NC, Aislinn ALVARADO, et al. Evaluation, treatment, and prevention of vitamin D deficiency: an Endocrine Society clinical practice guideline. JCEM. 2010; 96(7):1911-30. Performed at: [facility] [id number] Surgical Assist: Rui Todd MD, Phone: [phone] GLOBULIN 2025-01-04 07:41 [facility] 2.3 g/dl (missing) BUN - BLOOD UREA NITROGEN 2025-01-04 07:41 [facility] 20 mg/dl As of November 2022 testing method has changed, this may include reference ranges. TRANSFERRIN 2025-01-04 07:41 [facility] 207 mg/dl As of November 2022 testing method has changed, this may include reference ranges. AST ASPARTATE AMINOTRANSFERASE 2025-01-04 07:41 [facility] 24 iu/l As of November 2022 testing method has changed, this may include reference ranges. CARBON DIOXIDE - CO2 2025-01-04 07:41 [facility] 32 mmol/l As of November 2022 testing method has changed, this may include reference ranges. ANION GAP 2025-01-04 07:41 [facility] 4.0 (missing) (missing) ALBUMIN 2025-01-04 07:41 [facility] 4.1 g/dl As of November 2022 testing method has changed, this may include reference ranges. POTASSIUM 2025-01-04 07:41 [facility] 4.6 mmol/l As of November 2022 testing method has changed, this may include reference ranges. GFR - MDRD 2025-01-04 07:41 [facility] 52 (missing) The IDMS-traceable MDRD Study Equation has been validated extensively in and populations between the ages of 18 and 70 with impaired kidney function (eGFR < 60 mL/min/1.73m2) and has shown good performance for patients with all common causes of kidney disease. Although this equation has not been validated for patients older than 70, an MDRD-derived eGFR may still be a useful tool for providers caring for patients older than 70. References: http://www.nkdep.n ih.gov/lab-evaluat ion/gfr/creatinine -stand ardization, last updated July 2011. TOTAL PROTEIN 2025-01-04 07:41 [facility] 6.4 g/dl As of November 2022 testing method has changed, this may include reference ranges. IRON 2025-01-04 07:41 [facility] 70 ug/dl Yes As of November 2022 testing method has changed, this may include reference ranges. ALKALINE PHOSPHATASE 2025-01-04 07:41 [facility] 84 iu/l As of November 2022 testing method has changed, this may include reference ranges. CALCIUM 2025-01-04 07:41 [facility] 9.5 mg/dl As of November 2022 testing method has changed, this may include reference ranges. GLUCOSE 2025-01-04 07:41 [facility] 94 mg/dl As of November 2022 testing method has changed, this may include reference ranges. Result panel 2 VITAMIN D 25-HYDROXY 2025-02-21 07:57 [facility] 135.0 ng/ml Vitamin D deficiency has been defined by the [place] [employer] and an Endocrine Society practice guideline as a level of serum 25-OH vitamin D less than 20 ng/mL (1,2). The Endocrine Society went on to further define vitamin D insufficiency as a level between 21 and 29 ng/mL (2). 1. IOM ([place] [employer]). 2010. Dietary reference intakes for calcium and D. [place]: The National Academies Press. 2. David MF, Ana RODRIGUEZ, Aislinn ALVARADO, et al. Evaluation, treatment, and prevention of vitamin D deficiency: an Endocrine Society clinical practice guideline. JCEM. 2010; 96(7):1911-30. Performed at: [facility] [id number] Surgical Assist: Rui Todd MD, Phone: [phone] Result panel 3 NUCLEATED RED BLOOD CELLS AUTO 2025-02-25 12:15 [facility] 0.0 /100wbc (missing) NRBC ABSOLUTE COUNT (AUTO) 2025-02-25 12:15 [facility] 0.00 x10 3/ul (missing) BASOPHILS # (AUTO) 2025-02-25 12:15 [facility] 0.1 10 3/ul (missing) EOSINOPHILS # (AUTO) 2025-02-25 12:15 [facility] 0.2 10 3/ul (missing) MONOCYTES # (AUTO) 2025-02-25 12:15 [facility] 0.7 10 3/ul (missing) BILIRUBIN,TOTAL 2025-02-25 12:15 [facility] 0.9 mg/dl As of November 2022 testing method has changed, this may include reference ranges. LYMPHOCYTES # (AUTO) 2025-02-25 12:15 [facility] 1.1 10 3/ul (missing) ALBUMIN/GLOBULIN RATIO 2025-02-25 12:15 [facility] 1.5 (missing) (missing) CREATININE 2025-02-25 12:15 [facility] 1.5 mg/dl As of November 2022 testing method has changed, this may include reference ranges. INR 2025-02-25 12:15 [facility] 1.7 (missing) Oral Anticoagulant Indication INR range Venous Thrombosis, P.E. 2.0 - 3.0 Mechanical Valve 2.5 - 3.5 CHLORIDE 2025-02-25 12:15 [facility] 102 mmol/l As of November 2022 testing method has changed, this may include reference ranges. GLUCOSE 2025-02-25 12:15 [facility] 107 mg/dl As of November 2022 testing method has changed, this may include reference ranges. HGB - HEMOGLOBIN 2025-02-25 12:15 [facility] 11.9 g/dl (missing) SODIUM 2025-02-25 12:15 [facility] 138 mmol/l (missing) ALT ALANINE AMINOTRANSFERASE 2025-02-25 12:15 [facility] 14 iu/l As of November 2022 testing method has changed, this may include reference ranges. RED CELL DISTRIBUTION WIDTH 2025-02-25 12:15 [facility] 14.9 % (missing) PLT - PLATELET COUNT 2025-02-25 12:15 [facility] 146 10 3/ul (missing) PT - PROTHROMBIN TIME 2025-02-25 12:15 [facility] 19.4 secs (missing) GLOBULIN 2025-02-25 12:15 [facility] 2.6 g/dl (missing) AST ASPARTATE AMINOTRANSFERASE 2025-02-25 12:15 [facility] 22 iu/l As of November 2022 testing method has changed, this may include reference ranges. BUN - BLOOD UREA NITROGEN 2025-02-25 12:15 [facility] 23 mg/dl As of November 2022 testing method has changed, this may include reference ranges. LIPASE 2025-02-25 12:15 [facility] 26 u/l As of November 2022 testing method has changed, this may include reference ranges. NEUTROPHILS # (AUTO) 2025-02-25 12:15 [facility] 3.1 10 3/ul (missing) RED BLOOD COUNT 2025-02-25 12:15 [facility] 3.77 10 6/ul (missing) ALBUMIN 2025-02-25 12:15 [facility] 3.8 g/dl As of November 2022 testing method has changed, this may include reference ranges. MEAN CORPUSCULAR HEMOGLOBIN 2025-02-25 12:15 [facility] 31.6 pg (missing) CARBON DIOXIDE - CO2 2025-02-25 12:15 [facility] 32 mmol/l As of November 2022 testing method has changed, this may include reference ranges. MEAN CORPUSCULAR HGB CONC 2025-02-25 12:15 [facility] 32.5 g/dl (missing) HCT - HEMATOCRIT 2025-02-25 12:15 [facility] 36.6 % (missing) ANION GAP 2025-02-25 12:15 [facility] 4.0 (missing) (missing) POTASSIUM 2025-02-25 12:15 [facility] 4.6 mmol/l As of November 2022 testing method has changed, this may include reference ranges. GFR - MDRD 2025-02-25 12:15 [facility] 44 (missing) The IDMS-traceable MDRD Study Equation has been validated extensively in and populations between the ages of 18 and 70 with impaired kidney function (eGFR < 60 mL/min/1.73m2) and has shown good performance for patients with all common causes of kidney disease. Although this equation has not been validated for patients older than 70, an MDRD-derived eGFR may still be a useful tool for providers caring for patients older than 70. References: http://www.nkdep.ni h.gov/lab-evaluatio n/gfr/creatinine-st and ardization, last updated July 2011. WHITE BLOOD COUNT 2025-02-25 12:15 [facility] 5.1 x10 3/ul (missing) TOTAL PROTEIN 2025-02-25 12:15 [facility] 6.4 g/dl As of November 2022 testing method has changed, this may include reference ranges. ALKALINE PHOSPHATASE 2025-02-25 12:15 [facility] 76 iu/l As of November 2022 testing method has changed, this may include reference ranges. CALCIUM 2025-02-25 12:15 [facility] 9.5 mg/dl As of November 2022 testing method has changed, this may include reference ranges. MEAN PLATELET VOLUME 2025-02-25 12:15 [facility] 9.7 fl (missing) MEAN CORPUSCULAR VOLUME 2025-02-25 12:15 [facility] 97.1 fl (missing) Social History date description facility 2025-02-07 00:00 Ex-smoker (finding) [facility] Vital Signs date measurement value units 2025-02-07 00:00 BMI 24.3 kg/m2 2025-02-07 00:00 BP_diastolic 78 mmHg 2025-02-07 00:00 BP_systolic 132 mmHg 2025-02-07 00:00 heart_rate 80 /min 2025-02-07 00:00 height_metric 182.88 cm 2025-02-07 00:00 o2_saturation 99 % 2025-02-07 00:00 temperature_standard 98 F 2025-02-07 00:00 weight_metric 81.41 kg
[2025-03-26] MEDS: AZITHROMYCIN INJ 500 MG in SODIUM CHLORIDE 0.9% 250 ML IV STA (18:54)
[2025-03-26 19:01] LABS: ALT ALANINE AMINOTRANSFERASE 14.0 IU/L (10-60); AST ASPARTATE AMINOTRANSFERASE 22.0 IU/L (10-42); BUN - BLOOD UREA NITROGEN 23.0 mg/dL (6-20); CARBON DIOXIDE - CO2 24.0 mmol/L (21-32); CREATININE 1.3 mg/dL (0.6-1.3); GFR - MDRD 52.0 (>89)
--- NOTE | 2025-03-26 19:02 | XRAY Report ---
PROCEDURE: XR Chest 1V INDICATIONS: cough fever TECHNIQUE: One view of the chest was acquired. COMPARISON: 06/08/2024 FINDINGS: Surgical changes and devices: Left chest wall generator with cardiac leads. Lungs and pleura: Right lower lobe airspace opacity. Increased pulmonary markings and peribronchial cuffing. Mediastinum: Cardiomegaly. Normal contour otherwise. Bones and chest wall: No suspicious bony lesions. Overlying soft tissues appear unremarkable. IMPRESSION: Right lower lobe airspace opacity concerning for pneumonia. Mild pulmonary edema. Reviewed by: Selwyn Grant MD on 03/26/2025 6:59 PM PST Approved by: Selwyn Grant MD on 03/26/2025 6:59 PM PST Station ID: [id number]
[2025-03-26 19:43] LABS: B. PARAPERTUSSIS- RESP PCR PAN NOT DETECTED; B. PERTUSSIS- RESP PCR PANEL NOT DETECTED; C. PNEUMONIAE- RESP PCR PANEL NOT DETECTED; CORONAVIRUS 229E-RESP PCR NOT DETECTED; CORONAVIRUS HKU1-RESP PCR NOT DETECTED; CORONAVIRUS NL63-RESP PCR NOT DETECTED; CORONAVIRUS OC43-RESP PCR NOT DETECTED; HUMAN METAPNEUMOVIRUS NOT DETECTED; INFLUENZA A- RESP PCR PANEL NOT DETECTED; INFLUENZA B - RESP PCR PANEL NOT DETECTED; M. PNEUMONIAE- RESP PCR PANEL NOT DETECTED; PARAINFLUENZA VIRUS 1 NOT DETECTED; PARAINFLUENZA VIRUS 2 NOT DETECTED; PARAINFLUENZA VIRUS 4 NOT DETECTED; RHINOVIRUS/ENTEROVIRUS NOT DETECTED; RSV- RESP PCR PANEL NOT DETECTED; SARS-CoV-2 -RESP PCR PANEL NOT DETECTED
--- NOTE | 2025-03-26 19:48 | HISTORY & PHYSICAL EXAMINATION ---
Chief Complaint Chief Complaint Chief Complaint: Shortness of breath History of Present Illness Admitted From Admitted From:: Home History Obtained From Records Reviewed: Most recent cardiology note January 2025, last PCP note February 2025 History obtained from: Patient and at bedside History of Present Illness HPI Comment/Other: 89-year-old male who presents to the emergency department via EMS with acute hypoxia. He was in his usual state of health until this morning when he woke up with increased coughing. His states also he was cold and just could not get warm. She thinks he had a fever. He has a chronic cough with phlegm but it has been much worse for the last few days she is also admitted slight weight increase lower extremity edema over the last several days. He took all of his morning medications today but missed his evening medications. He has past medical history of pulmonary hypertension, carotid stenosis, coronary artery disease without stents obstructive sleep apnea, atrial fibrillation on anticoagulation and COPD. He has a pacemaker/AICD in place. He is followed by Steph Bravo in primary care and also sees cardiology at [facility]; Dr. Mon is his engineering administrator. My time in the emergency department with this patient is somewhat truncated as the fire alarms are actively going off. This patient comes to the emergency department with a copy of his POLST in hand. It is dated March 26, 2015 and states CPR but comfort measures only. I explained to the patient and his that should he get CPR he would indeed have an advanced airway placed and therefore he would get full treatment. He states that his Naheed would be his surrogate medical decision-maker should he need 1. Meds/Allgy Home Medications Ambulatory Orders Medication Instructions Recorded Confirmed aspirin 81 mg tablet,delayed 81 mg PO QDAY 04/18/24 release (Adult Aspirin Regimen) mupirocin 2 % topical ointment 1 applic topical DAILY #22 grams 10/05/24 10/27/24 ([facility]) finasteride 5 mg tablet 5 mg PO QAM 10/27/24 5 tamsulosin 0.4 mg capsule 0.4 mg PO QAM 10/27/2410/27 dabigatran etexilate 150 mg 150 mg PO BID 11/09/2412/15 capsule (Pradaxa) diphenhydramine 25 1 tab PO QPM 11/09/24 mg-acetaminophen 500 mg tablet (Tylenol PM Extra Strength) atorvastatin 20 mg tablet 20 mg PO QPM #90 tabs 02/27/25 ipratropium bromide 42 mcg (0.06 2 spray intranasal BI D #15 mL 02/13/25 02/27/25 %) nasal spray cholecalciferol (vitamin D3) 50 50 mcg PO QDAY 5 02/27/25 mcg (2,000 unit) tablet (Vitamin D3) metoprolol succinate 25 mg 12.5 mg PO BID 02/27/2512/15 tablet,extended release 24 hr Allergies Allergies Allergy/AdvReac Type Severity Reaction Status Date / Time No Known Drug Allergies Allergy Verified 03/26/25 18:28 [facility] Active Problems All Active Problems (Updated 03/26/25 @ 19:36 by PATRICIA Ashraf) COPD exacerbation (Acute) Pulmonary hypertension (Acute) Acute hypoxemic respiratory failure (Acute) Pneumonia (Acute) Hypervitaminosis (Acute) Numbness (Acute) COPD (chronic obstructive pulmonary disease) (Chronic) GERD (gastroesophageal reflux disease) (Acute) Anemia (Acute) Fall from slip, trip, or stumble (Acute) Acute lumbar myofascial strain (Acute) Alteration in skin integrity (Acute) Left ankle pain (Acute) Lower urinary tract symptoms (LUTS) (Acute) Hypertension, essential, benign (Acute) A-fib (Acute) Kyphosis of cervical region (Acute) Pressure ulcer of unspecified site, unstageable (Acute) Right hand weakness (Acute) Muscle right arm weakness (Acute) History of recent stroke (Acute) Seasonal allergies (Acute) Pressure ulcer (Acute) Vitamin D deficiency (Acute) Fatigue (Acute) 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) Hyperlipidemia (Acute) ANISH on CPAP (Acute) Acute respiratory failure with hypoxia (Acute) BPH (benign prostatic hyperplasia) (Acute) Atrial fibrillation (Acute) Medical History Medical History (Updated 03/26/25 @ 19:36 by PATRICIA Ashraf) Scalp pruritus Mood changes Balance disorder Memory change Tremor Shuffling gait Spinal stenosis, lumbar region with neurogenic claudication Abnormal stool test Hyponatremia Bronchitis Adequate anticoagulation on anticoagulant therapy Gout attack Supratherapeutic INR Acute exacerbation of chronic low back pain Sepsis due to pneumonia Pneumonia Family History Family History Other Arthritis Asthma Cancer Congenital heart disease Depressed Diabetes Heart attack High blood pressure Social History Social History (Updated 02/27/25 @ 15:18 by Estefany Gunn MA) Smoking Status: Former smoker If you are a former smoker, when did you quit? (Date/Year): 1971 Number of Years Smoked: 20 How many cigarettes a day do you smoke? (20 cigarettes=1 Pk): 20 Second hand tobacco smoke exposure: No Do you dip or chew tobacco?: No Do you vape?: No Patient requests smoking cessation consult: No Initiate information on smoking cessation: No Living arrangement: At home Marital Status: Living Condition: With spouse/s.o. Support Person: Yes Physical Activity: Walking Do you feel safe in your home environment?: Yes History of physical, verbal, emotional, or financial abuse?: No ETOH Use: Wine Frequency: Daily Are you sexually active?: No Retired: Yes Service: Yes Dates of Service: [phone] Are you following a diet prescribed by a doctor: No Are you following a special diet: No POLST Patient has POLST: Yes POLST on file?: Yes POLST CPR Status: Attempt Resuscitation (CPR) Level of Medical Intervention: Comfort Focused Treatment Review of Systems Status of ROS: 10 or more systems reviewed and unremarkable except as noted in history and below Prior Level of Functionality: Lives at home with Exam Exam Vital Signs: Vital Signs x48h Temp Pulse Resp BP Pulse Ox O2 Flow Rate 03/26/25 19:00 2 03/26/25 18:43 70 28 H 116/59 L 97 2 03/26/25 18:22 36.8 C 70 20 153/74 H 98 Constitutional alert Appears ill, tachypneic HENMT normocephalic, head/scalp atraumatic, nasal mucous membranes normal and external nose normal Hearing aids in place, Xerostomia Eyes conjunctivae normal Neck/C-Spine visual inspection normal and trachea midline Lymph no lymphadenopathy noted Chest inspection of chest normal and palpation of chest normal Pacemaker in the left chest wall Respiratory breath sounds equal bilaterally and no use of accessory muscles Diffuse rhonchi bilaterally Cardiovascular normal heart rate noted, regular rhythm noted and no edema Gastrointestinal abdomen soft to palpation and nontender to palpation Mildly distended Extremities normal to inspection, normal to palpation and no tenderness Neurology business development engineer II-XII intact, no focal motor deficit noted, speech normal and GCS 15 Psychiatry mental status grossly normal, oriented x3, thought process normal and cooperative Skin skin color normal and no rash Sepsis Event Note (H) Evaluation Possible source of Sepsis: positive Pulmonary Sepsis Criteria Sepsis Criteria: Recorded Respiratory Rate greater than 20 and Respiratory: Increasing oxygen requirements Conclusion/Plan Problem List (1) Acute hypoxemic respiratory failure: Plan: He is not on oxygen at home. He does have a history of pulmonary hypertension and COPD. For which he takes no inhalers. He is requiring supplemental oxygen here 2 L via nasal cannula to maintain saturation of 97 to 98%. He is tachypneic to rate of 28. I believe the etiology of his acute hypoxemic respiratory failure is a right sided pneumonia. Mild pulmonary edema is noted on his chest x-ray, there is no pedal edema. He is not on chronic diuretic therapy. Should his hypoxemia fail to improve with treatment of his pneumonia I will consider diuresis. Discussed this patient with Dr. Bonilla in the emergency department decision was made to admit him to inpatient status for treatment of his acute hypoxic respiratory failure. He will receive supplemental oxygen. He will receive antibiotics for treatment of his pneumonia. He will receive monitoring of his vital signs and I will follow his leukocytosis. (2) Sepsis due to pneumonia: Plan: This patient has mild leukocytosis of 11. He is tachypneic and has increasing oxygen requirements. He has an infiltrate on his chest x-ray. His lactic acid is 1.1. I think he has mild sepsis. (3) Pneumonia: Plan: Community-acquired pneumonia. Chest x-ray reveals right lower lobe airspace opacity concerning for pneumonia. Mild pulmonary edema is also noted. Patient was started on Rocephin and azithromycin in the emergency department. I will continue these antibiotics. He will receive supplemental oxygen to maintain an oxygen saturation of 88% or greater. I will follow his leukocytosis with daily CBC. Qualifiers: Laterality: right Lung location: lower lobe of lung Pneumonia type: d ue to unspecified organism Qualified Code(s): J18.9 - Pneumonia, unspecified organism (4) COPD exacerbation: Plan: On lung auscultation he has diffuse rhonchi Bilaterally. There is no wheezing. I think he is having a COPD exacerbation secondary to pneumonia. I started him on Decadron daily. (5) Pulmonary hypertension: Plan: . He does have enlarged cardiac silhouette on his chest x-ray but I do not see any history of CHF. In fact his last echocardiogram shows, moderate pulmonary hypertension with PASP 51 mmHg. Evidence of diastolic dysfunction. The date of the study is June 2024. He is not on any diuretic therapy. He is on metoprolol. (6) A-fib: Plan: He has a history of atrial fibrillation at home he takes Pradaxa for this. He is also on low-dose metoprolol, medication reconciliation is not complete but it appears that he is on metoprolol succinate 12.5 mg twice daily. I will wait for medication reconciliation to restart his medications. We will continue his anticoagulation while he is here in the hospital as well as his beta-zack therapy. Qualifiers: Atrial fibrillation type: unspecified chronic Qualified Code(s): I48.20 - Chronic atrial fibrillation, unspecified (7) ANISH on CPAP: Plan: Presents to the emergency department with a CPAP. He will use his home CPAP while admitted. Plan I have spent 82 minutes in the care of this patient today. This includes time [id number], review and ordering of diagnostic imaging and laboratory studies and consultation with other providers. Monitoring the patient's signs symptoms, evaluation of medication effectiveness and patient's response to treatment. Lab Results Lab results reviewed: Yes 03/26/25 18:35 03/26/25 18:35 Diagnostic Imaging Results Diagnostic Imaging Results: positive Final report reviewed and Read independently Diagnostic Imaging Results Comments: Chest x-ray shows right lower lobe infiltrate, enlarged cardiac shadow and mild pulmonary edema Core Measures Anticipated LOS I expect patient to be DC'd or transferred within 96 hours.: Yes DVT/VTE - Prophylaxis VTE/DVT Device ordered at admit?: Yes VTE/DVT Prophylaxis med ordered at admit?: No Not Ordered - Medical Reason: Not indicated (Will resume home DOAC)
--- OUTSIDE RECORDS SUMMARY | 2025-03-26 19:52 | EXTERNAL MEDICAL SUMMARY RPT | Continuity of Care Document ---
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 Name Role Phone Payam Bates Unavailable Unavailable Allergies and Intolerances date description facility reaction severity 2025-02-07 10:16:29 [facility] (no reactio n) (no severity) Problems date description facility 2025-01-05 00:04 Vitamin D deficiency, unspecifi ed [facility] 2025-01-05 00:04 Encounter for screen ing for diseases of the blood and blood-forming organs and certain disorders involving the immune mechanism [facility] 2025-01-08 15:41 Vitamin D deficiency, unspecifi ed [facility] 2025-01-08 15:41 Encounter for screen ing for diseases of the blood and blood-forming organs and certain disorders involving the immune mechanism [facility] 2025-01-09 09:47 Vitamin D deficiency, unspecifi ed [facility] 2025-01-09 09:47 Cardiomyopathy, unspecified [facility] 2025-01-19 13:45 Vitamin D deficiency, unspecifi ed [facility] 2025-01-19 13:45 Cardiomyopathy, unspecified [facility] 2025-02-07 00:00 Osteoarthritis of right ankle [facility] 2025-02-07 11:45 Primary osteoarthritis, right [facility] 2025-02-07 12:21 Primary osteoarthritis, [facility] 2025-02-09 08:39 Primary osteoarthritis, [facility] 2025-02-19 12:41 Primary osteoarthritis, [facility] 2025-02-22 00:04 Hypervitaminosis D [facility] 2025-03-01 13:51 Anesthesia of skin [facility] 2025-03-01 13:51 Facial weakness [facility] 2025-03-05 09:01 Anesthesia of skin [facility] Procedures date description facility 2025-02-07 00:00 X-ray of right ankle, three or more [facility] Results/Labs test date facility value unit notes Result panel 1 BILIRUBIN,TOTAL 2025-01-04 07:41 [facility] 1.1 mg/dl As of November 2022 testing method has changed, this may include reference ranges. CREATININE 2025-01-04 07:41 [facility] 1.3 mg/dl As of November 2022 testing method has changed, this may include reference ranges. ALBUMIN/GLOBULIN RATIO 2025-01-04 07:41 [facility] 1.8 (missing) (missing) CHLORIDE 2025-01-04 07:41 [facility] 101 mmol/l As of November 2022 testing method has changed, this may include reference ranges. SODIUM 2025-01-04 07:41 [facility] 137 mmol/l Yes ALT ALANINE AMINOTRANSFERASE 2025-01-04 07:41 [facility] 14 iu/l As of November 2022 testing method has changed, this may include reference ranges. VITAMIN D 25-HYDROXY 2025-01-04 07:41 [facility] 146.0 ng/ml Vitamin D deficiency has been defined by the [place] [employer] and an Endocrine Society practice guideline as a level of serum 25-OH vitamin D less than 20 ng/mL (1,2). The Endocrine Society went on to further define vitamin D insufficiency as a level between 21 and 29 ng/mL (2). 1. IOM ([place] [employer]). 2010. Dietary reference intakes for calcium and D. [place]: The National Academies Press. 2. David MF, Ana NC, Aislinn ALVARADO, et al. Evaluation, treatment, and prevention of vitamin D deficiency: an Endocrine Society clinical practice guideline. JCEM. 2010; 96(7):1911-30. Performed at: [facility] [id number] Blender: Rui Todd MD, Phone: [phone] GLOBULIN 2025-01-04 07:41 [facility] 2.3 g/dl (missing) BUN - BLOOD UREA NITROGEN 2025-01-04 07:41 [facility] 20 mg/dl As of November 2022 testing method has changed, this may include reference ranges. TRANSFERRIN 2025-01-04 07:41 [facility] 207 mg/dl As of November 2022 testing method has changed, this may include reference ranges. AST ASPARTATE AMINOTRANSFERASE 2025-01-04 07:41 [facility] 24 iu/l As of November 2022 testing method has changed, this may include reference ranges. CARBON DIOXIDE - CO2 2025-01-04 07:41 [facility] 32 mmol/l As of November 2022 testing method has changed, this may include reference ranges. ANION GAP 2025-01-04 07:41 [facility] 4.0 (missing) (missing) ALBUMIN 2025-01-04 07:41 [facility] 4.1 g/dl As of November 2022 testing method has changed, this may include reference ranges. POTASSIUM 2025-01-04 07:41 [facility] 4.6 mmol/l As of November 2022 testing method has changed, this may include reference ranges. GFR - MDRD 2025-01-04 07:41 [facility] 52 (missing) The IDMS-traceable MDRD Study Equation [...] updated July 2011. TOTAL PROTEIN 2025-01-04 07:41 [facility] 6.4 g/dl As of November 2022 testing method has changed, this may include reference ranges. IRON 2025-01-04 07:41 [facility] 70 ug/dl Yes As of November 2022 testing method has changed, this may include reference ranges. ALKALINE PHOSPHATASE 2025-01-04 07:41 [facility] 84 iu/l As of November 2022 testing [...] D deficiency has been defined by the [place] [employer] and an Endocrine Society practice guideline as a level of serum 25-OH vitamin D less than 20 ng/mL (1,2). The Endocrine Society went on to further define vitamin D insufficiency as a level between 21 and 29 ng/mL (2). 1. IOM ([place] [employer]). 2010. Dietary reference intakes for calcium and D. [place]: The National Academies Press. 2. David MF, Ana RODRIGUEZ, Aislinn ALVARADO, et al. Evaluation, treatment, and prevention of vitamin D deficiency: an Endocrine Society clinical practice guideline. JCEM. 2010; 96(7):1911-30. Performed at: [facility] [id number] Blender: Rui Todd MD, Phone: [phone] Result panel 3 NUCLEATED RED BLOOD CELLS [...] 10 3/ul (missing) ALBUMIN/GLOBULIN RATIO 2025-02-25 12:15 [facility] 1.5 (missing) (missing) CREATININE 2025-02-25 12:15 [facility] 1.5 mg/dl As of November 2022 testing method has changed, this may include reference ranges. INR 2025-02-25 12:15 [facility] 1.7 (missing) Oral Anticoagulant Indication INR range Venous Thrombosis, P.E. 2.0 - 3.0 Mechanical Valve 2.5 - 3.5 CHLORIDE 2025-02-25 12:15 [facility] 102 mmol/l As of November 2022 testing method has changed, this may include reference ranges. GLUCOSE 2025-02-25 12:15 [facility] 107 mg/dl As of November 2022 testing method has changed, this may include reference ranges. HGB - HEMOGLOBIN 2025-02-25 12:15 [facility] 11.9 g/dl (missing) SODIUM 2025-02-25 12:15 [facility] 138 mmol/l (missing) ALT ALANINE AMINOTRANSFERASE 2025-02-25 12:15 [facility] 14 iu/l As of November 2022 testing method has changed, this may include reference ranges. RED CELL DISTRIBUTION WIDTH 2025-02-25 12:15 [facility] 14.9 % (missing) PLT - PLATELET COUNT 2025-02-25 12:15 [facility] 146 10 3/ul (missing) PT - PROTHROMBIN TIME 2025-02-25 12:15 [facility] 19.4 secs (missing) GLOBULIN 2025-02-25 12:15 [facility] 2.6 g/dl (missing) AST ASPARTATE AMINOTRANSFERASE 2025-02-25 12:15 [facility] 22 iu/l As of November 2022 testing method has changed, this may include reference ranges. BUN - BLOOD UREA NITROGEN 2025-02-25 12:15 [facility] 23 mg/dl As of November 2022 testing method has changed, this may include reference ranges. LIPASE 2025-02-25 12:15 [facility] 26 u/l As of November 2022 testing method has changed, this may include reference ranges. NEUTROPHILS # (AUTO) 2025-02-25 12:15 [facility] 3.1 10 3/ul (missing) RED BLOOD COUNT 2025-02-25 12:15 [facility] 3.77 10 6/ul (missing) ALBUMIN 2025-02-25 12:15 [facility] 3.8 g/dl As of November 2022 testing method has changed, this may include reference ranges. MEAN CORPUSCULAR HEMOGLOBIN 2025-02-25 12:15 [facility] 31.6 pg (missing) CARBON DIOXIDE - CO2 2025-02-25 12:15 [facility] 32 mmol/l As of November 2022 testing method has changed, this may include reference ranges. MEAN CORPUSCULAR HGB CONC 2025-02-25 12:15 [facility] 32.5 g/dl (missing) HCT - HEMATOCRIT 2025-02-25 12:15 [facility] 36.6 % (missing) ANION GAP 2025-02-25 12:15 [facility] 4.0 (missing) (missing) POTASSIUM 2025-02-25 12:15 [facility] 4.6 mmol/l As of November 2022 testing method has changed, this may include reference ranges. GFR - MDRD 2025-02-25 12:15 [facility] 44 (missing) The IDMS-traceable MDRD Study Equation [...] July 2011. WHITE BLOOD COUNT 2025-02-25 12:15 [facility] 5.1 x10 3/ul (missing) TOTAL PROTEIN 2025-02-25 12:15 [facility] 6.4 g/dl As of November 2022 testing method has changed, this may include reference ranges. ALKALINE PHOSPHATASE 2025-02-25 12:15 [facility] 76 iu/l As of November 2022 testing method has changed, this may include reference ranges. CALCIUM 2025-02-25 12:15 [facility] 9.5 mg/dl As of November 2022 testing method has changed, this may include reference ranges. MEAN PLATELET VOLUME 2025-02-25 12:15 [facility] 9.7 fl (missing) MEAN CORPUSCULAR VOLUME 2025-02-25 12:15 [facility] 97.1 fl (missing) Result panel 4 NUCLEATED RED BLOOD CELLS AUTO 2025-03-26 18:35 [facility] 0.0 /100wbc (missing) BASOPHILS # (AUTO) 2025-03-26 18:35 [facility] 0.0 10 3/ul (missing) EOSINOPHILS # (AUTO) 2025-03-26 18:35 [facility] 0.0 10 3/ul (missing) NRBC ABSOLUTE COUNT (AUTO) 2025-03-26 18:35 [facility] 0.00 x10 3/ul (missing) MONOCYTES # (AUTO) 2025-03-26 18:35 [facility] 0.9 10 3/ul (missing) LYMPHOCYTES # (AUTO) 2025-03-26 18:35 [facility] 0.9 10 3/ul (missing) LACTIC ACID, VENOUS 2025-03-26 18:35 [facility] 1.1 mmol/l N As of November 2022 testing method has changed, this may include reference ranges. CREATININE 2025-03-26 18:35 [facility] 1.3 mg/dl As of November 2022 testing method has changed, this may include reference ranges. ALBUMIN/GLOBULIN RATIO 2025-03-26 18:35 [facility] 1.7 (missing) (missing) BILIRUBIN,TOTAL 2025-03-26 18:35 [facility] 1.9 mg/dl As of November 2022 testing method has changed, this may include reference ranges. ANION GAP 2025-03-26 18:35 [facility] 10.0 (missing) (missing) MEAN PLATELET VOLUME 2025-03-26 18:35 [facility] 10.4 fl (missing) CHLORIDE 2025-03-26 18:35 [facility] 100 mmol/l As of November 2022 testing method has changed, this may include reference ranges. WHITE BLOOD COUNT 2025-03-26 18:35 [facility] 11.0 x10 3/ul (missing) HGB - HEMOGLOBIN 2025-03-26 18:35 [facility] 12.2 g/dl (missing) PLT - PLATELET COUNT 2025-03-26 18:35 [facility] 129 10 3/ul (missing) SODIUM 2025-03-26 18:35 [facility] 134 mmol/l (missing) ALT ALANINE AMINOTRANSFERASE 2025-03-26 18:35 [facility] 14 iu/l As of November 2022 testing method has changed, this may include reference ranges. RED CELL DISTRIBUTION WIDTH 2025-03-26 18:35 [facility] 14.5 % (missing) GLUCOSE 2025-03-26 18:35 [facility] [facility] 144 mg/dl As of November 2022 testing method has changed, this may include reference ranges. GLOBULIN 2025-03-26 18:35 [facility] 2.3 g/dl (missing) AST ASPARTATE AMINOTRANSFERASE 2025-03-26 18:35 [facility] 22 iu/l As of November 2022 testing method has changed, this may include reference ranges. BUN - BLOOD UREA NITROGEN 2025-03-26 18:35 [facility] 23 mg/dl As of November 2022 testing method has changed, this may include reference ranges. CARBON DIOXIDE - CO2 2025-03-26 18:35 [facility] 24 mmol/l As of November 2022 testing method has changed, this may include reference ranges. RED BLOOD COUNT 2025-03-26 18:35 [facility] 3.69 10 6/ul (missing) ALBUMIN 2025-03-26 18:35 [facility] 3.8 g/dl As of November 2022 testing method has changed, this may include reference ranges. MEAN CORPUSCULAR HEMOGLOBIN 2025-03-26 18:35 [facility] 33.1 pg (missing) MEAN CORPUSCULAR HGB CONC 2025-03-26 18:35 [facility] 34.5 g/dl (missing) HCT - HEMATOCRIT 2025-03-26 18:35 [facility] 35.4 % (missing) POTASSIUM 2025-03-26 18:35 [facility] 4.0 mmol/l As of November 2022 testing method has changed, this may include reference ranges. GFR - MDRD 2025-03-26 18:35 [facility] 52 (missing) The IDMS-traceable MDRD Study Equation [...] caring for patients older than 70. References: http://www.nkdep. nih.gov/lab-evalu ation/gfr/creatin ine-stand ardization, last updated July 2011. TOTAL PROTEIN 2025-03-26 18:35 [facility] 6.1 g/dl As of November 2022 testing method has changed, this may include reference ranges. CALCIUM 2025-03-26 18:35 [facility] 8.9 mg/dl As of November 2022 testing method has changed, this may include reference ranges. ALKALINE PHOSPHATASE 2025-03-26 18:35 [facility] 83 iu/l As of November 2022 testing method has changed, this may include reference ranges. NEUTROPHILS # (AUTO) 2025-03-26 18:35 [facility] 9.1 10 3/ul (missing) MEAN CORPUSCULAR VOLUME 2025-03-26 18:35 [facility] 95.9 fl (missing) Social History date description facility 2025-02-07 00:00 Ex-smoker (finding) [facility] Vital Signs date measurement value units 2025-02-07 00:00 BMI 24.3 kg/m2 2025-02-07 00:00 BP_diastolic 78 mmHg 2025-02-07 00:00 BP_systolic 132 mmHg 2025-02-07 00:00 heart_rate 80 /min 2025-02-07 00:00 height_metric 182.88 cm 2025-02-07 00:00 o2_saturation 99 % 2025-02-07 00:00 temperature_standard 98 F 2025-02-07 00:00 weight_metric 81.41 kg
[2025-03-26] MEDS ORDERED: SODIUM CHLORIDE FLUSH 0.9% 10 ML SYRINGE IVP PRN (19:57)
[2025-03-26] MEDS ORDERED: IPRATROPIUM/ALBUTEROL 3 ML NEB INH PRN (19:57)
[2025-03-26] MEDS ORDERED: oxyCODONE 5 MG TABLET PO PRN (19:57)
[2025-03-26] MEDS ORDERED: ONDANSETRON ODT 4 MG TABLET TL PRN (19:57)
[2025-03-26] MEDS: CHERRY SYRUP 10 ML UDC PO ONE (20:28)
[2025-03-26] MEDS: METOPROLOL SUCCINATE 25 MG TABLET PO SCH (22:17)
[2025-03-26] MEDS: SODIUM CHLORIDE FLUSH 0.9% 10 ML SYRINGE IVP SCH (23:40)
[2025-03-27] MEDS: guaiFENesin 100 MG/5 ML UDC PO PRN (00:02)
[2025-03-27 05:03] LABS: HCT - HEMATOCRIT 36.0 % (42.0-52.0); HGB - HEMOGLOBIN 12.2 g/dL (14.0-18.0); MEAN PLATELET VOLUME 11.7 fL (7.4-11.4); NRBC ABSOLUTE COUNT (AUTO) 0.00 x10^3/uL; NUCLEATED RED BLOOD CELLS AUTO 0.0 /100WBC; PLT - PLATELET COUNT 113 10^3/uL (130-450); RED CELL DISTRIBUTION WIDTH 14.5 % (12.0-15.0)
[2025-03-27 05:23] LABS: BUN - BLOOD UREA NITROGEN 24.0 mg/dL (6-20); CARBON DIOXIDE - CO2 24.0 mmol/L (21-32); CREATININE 1.4 mg/dL (0.6-1.3); GFR - MDRD 48.0 (>89)
[2025-03-27] MEDS: DEXAMETHASONE 10 MG/ML VIAL PO SCH (09:40)
[2025-03-27] MEDS: AZITHROMYCIN INJ 500 MG in SODIUM CHLORIDE 0.9% 250 ML IV SCH (09:40)
[2025-03-27] MEDS: cefTRIAXone 1 GM in SODIUM CHLORIDE 0.9% MINIBAG 100 ML IV SCH (09:42)
[2025-03-27] MEDS: HYDROCORTISONE 1% CREAM 28 GM TUBE TOP SCH (10:40)
--- NOTE | 2025-03-27 12:58 | PROVIDER PROGRESS NOTE ---
Subjective Prog Note Date Prog Note Date: 03/27/25 Subjective Subjective: observed him back and forth to the bathroom with a walker. he is currently on room air with saturations dropping into the high 80's at times. He was able to rest well last night, is eager to go home ,but understands that he is sick. Skin is itchy, but no rash Current Medications Current Medications Current Medications: Current Medications Generic Name Dose Route Start Last Admin Trade Name Freq PRN Reason Stop Dose Admin Acetaminophen 650 mg 03/26/25 19:57 Acetaminophen 325 Mg Tablet PO Q4HR PRN Pain 1 to 4, or Fever Albuterol/Ipratropium 3 ml 03/26/25 19:57 Ipratropium/Albuterol 3 Ml Neb INH Q4HR PRN Wheezing Dexamethasone Sodium Phosphate 6 mg 03/27/25 09:00 03/27/25 09:40 Dexamethasone 10 Mg/Ml Vial PO 03/31/25 09:01 6 mg DAILY RICH Administration Guaifenesin 200 mg 03/26/25 23:49 03/27/25 09:40 Guaifenesin 100 Mg/5 Ml Udc PO 200 mg Q4H PRN Administration Cough Hydrocortisone 1 applic 03/27/25 11:00 03/27/25 10:40 Hydrocortisone 1% Cream 28 Gm Tube TOP 1 applic BID RICH Administration Ceftriaxone Sodium 1 gm/ 100 mls @ 200 mls/hr 03/27/25 09:00 03/27/25 09:42 Sodium Chloride IV 03/30/25 09:29 200 mls/hr DAILY RICH Administration Azithromycin 500 mg/ Sodium 250 mls @ 250 mls/hr 03/27/25 09:00 03/27/25 09:40 Chloride IV 03/28/25 09:59 250 mls/hr DAILY RICH Administration Metoprolol Succinate 12.5 mg 03/26/25 23:00 03/27/25 09:21 Metoprolol Succinate 25 Mg Tablet PO 12.5 mg BID RICH Administration Ondansetron HCl 4 mg 03/26/25 19:57 Ondansetron Odt 4 Mg Tablet TL Q6HR PRN Nausea / Vomiting Oxycodone HCl 5 mg 03/26/25 19:57 Oxycodone 5 Mg Tablet PO Q4HR PRN Pain 5 to 7 Sodium Chloride 10 ml 03/26/25 19:57 Sodium Chloride Flush 0.9% 10 Ml Syringe IVP PRN PRN NEEDED PER PROVIDER ORDERS Sodium Chloride 10 ml 03/27/25 01:00 03/27/25 09:22 Sodium Chloride Flush 0.9% 10 Ml Syringe IVP 10 ml 0100,0900,1700 [facility] Administration Objective Vital Signs/Intake & Output Reviewed Vital Signs: Yes Vital Signs: Vital Signs x48h Resp Pulse Ox 03/27/25 06:35 22 98 Intake & Output: Intake & Output 03/24/25 03/25/25 03/26/25 03/27/25 23:59 22:59 23:59 23:59 Intake Total 1370 / 1370 Output Total 805 / 805 Balance 1370 / 1370 -805 / -805 Weight (kg) 83.91 kg Objective General Appearance: positive No acute distress and Alert ENT: positive ENT inspection nml Neck: positive Nml inspection Respiratory: positive No respiratory distress, Breath sounds nml and Other (slightly diminished at the bases) Cardiovascular: positive Regular rate & rhythm Abdomen: positive Non-tender and Other (mildly distended) Lab Results 03/27/25 04:18 03/27/25 04:18 Other Labs: Lab Results x24hrs 03/27/25 03/26/25 03/26/25 Range/Units 04:18 18:35 18:34 WBC 12.8 H 11.0 H (4.8-10.8) x10^3/uL RBC 3.75 L 3.69 L (4.70-6.10) 10^6/uL Hgb 12.2 L 12.2 L (14.0-18.0) g/dL Hct 36.0 L 35.4 L (42.0-52.0) % MCV 96.0 H 95.9 H (80.0-94.0) fL MCH 32.5 H 33.1 H (27.0-31.0) pg MCHC 33.9 34.5 (32.0-36.0) g/dL RDW 14.5 14.5 (12.0-15.0) % Plt Count 113 L 129 L (130-450) 10^3/uL MPV 11.7 H 10.4 (7.4-11.4) fL Neut # (Auto) 12.1 H 9.1 H (1.5-6.6) 10^3/uL Lymph # (Auto) 0.5 L 0.9 L (1.5-3.5) 10^3/uL Dickenson # (Auto) 0.2 0.9 (0.0-1.0) 10^3/uL Eos # (Auto) 0.0 0.0 (0.0-0.7) 10^3/uL Baso # (Auto) 0.0 0.0 (0.0-0.1) 10^3/uL Absolute Nucleated RBC 0.00 0.00 x10^3/uL Nucleated RBC % 0.0 0.0 /100WBC Sodium 135 134 L (135-145) mmol/L Potassium 4.4 4.0 (3.5-4.5) mmol/L Chloride 103 100 L (101-111) mmol/L Carbon Dioxide 24 24 (21-32) mmol/L Anion Gap 8.0 10.0 (6-13) BUN 24 H 23 H (6-20) mg/dL Creatinine 1.4 H 1.3 (0.6-1.3) mg/dL Estimated GFR (MDRD) 48 L 52 L (>89) Glucose 199 H 144 H (74-104) mg/dL Lactic Acid 1.1 (0.5-2.2) mmol/L Calcium 8.9 8.9 (8.5-10.3) mg/dL Total Bilirubin 1.9 H (0.2-1.0) mg/dL AST 22 (10-42) IU/L ALT 14 (10-60) IU/L Alkaline Phosphatase 83 (42-121) IU/L Total Protein 6.1 L (6.4-8.9) g/dL Albumin 3.8 (3.2-5.5) g/dL Globulin 2.3 (2.1-4.2) g/dL Albumin/Globulin Ratio 1.7 (1.0-2.2) Nasal Adenovirus (PCR) NOT DETECTED Nasal B. parapertussis DNA (PCR) NOT DETECTED Nasal Coronavir 229E PCR NOT DETECTED Nasal Coronavir HKU1 PCR NOT DETECTED Nasal Coronavir NL63 PCR NOT DETECTED Nasal Coronavir OC43 PCR NOT DETECTED Nasal Enterovir/Rhinovir PCR NOT DETECTED Nasal Influenza B PCR NOT DETECTED Nasal Influenza A PCR NOT DETECTED Nasal Parainfluen 1 PCR NOT DETECTED Nasal Parainfluen 2 PCR NOT DETECTED Nasal Parainfluen 3 PCR NOT DETECTED Nasal Parainfluen 4 PCR NOT DETECTED Nasal RSV (PCR) NOT DETECTED Nasal B.pertussis DNA PCR NOT DETECTED Nasal C.pneumoniae (PCR) NOT DETECTED Tenzin Human Metapneumo PCR NOT DETECTED Nasal M.pneumoniae (PCR) NOT DETECTED Nasal SARS-CoV-2 (PCR) NOT DETECTED Sepsis Event Note (H) Evaluation Possible source of Sepsis: positive Pulmonary Sepsis Criteria Sepsis Criteria: Recorded Respiratory Rate greater than 20 and Respiratory: Increasing oxygen requirements Assessment/Plan Problem List (1) Acute hypoxemic respiratory failure: Impression: He is not on oxygen at home. He does have a history of pulmonary hypertension and COPD. For which he takes no inhalers. He is requiring supplemental oxygen here 2 L via nasal cannula to maintain saturation of 97 to 98%. His tachypnea has improved overnight. he states that he feels much more comfortable than at the time of admit, but he is still requiring supplemental oxygen. Attempted removal of oxygen while I was in the room and he was unable to maintain his saturations. I believe the etiology of his acute hypoxemic respiratory failure is a right sided pneumonia. Mild pulmonary edema is noted on his chest x-ray, there is no pedal edema. He is not on chronic diuretic therapy. his renal function is adequate. I will give him one dose of lasix this afternoon, and see if that improves his hypoxia. Discussed his care at bedside today with his and daughter. . (2) Sepsis due to pneumonia: Impression: his WBC is increasing overnight from 11 to 12.8. he has not run any fevers. I think he still has a mild degree of sepsis, he is appropriately antibiosed. (3) Pneumonia: Impression: Community-acquired pneumonia. Chest x-ray reveals right lower lobe airspace opacity concerning for pneumonia. Mild pulmonary edema is also noted. Patient was started on Rocephin and azithromycin in the emergency department. I will continue these antibiotics. He will receive supplemental oxygen to maintain an oxygen saturation of 88% or greater. I will follow his leukocytosis with daily CBC. He is feeling beter and independent out of bed with a walker to the bathroom today. called EMS yesterday because he was unable to get out of bed. Qualifiers: Laterality: right Lung location: lower lobe of lung Pneumonia type: d ue to unspecified organism Qualified Code(s): J18.9 - Pneumonia, unspecified organism (4) Elevated bilirubin: Impression: Bilirubin of 1.9 on admission last night, looking back into his past labs he has had mildly elevated bilirubin but never this high. Likely secondary to liver congestion related to his right heart failure. I am suspicious that this is symptomatic as this patient is having some generalized skin itching today. Will treat the skin itching symptomatically and follow the bilirubin in the morning. I am diuresing him this afternoon which hopefully will relieve some of the symptomatology. (5) COPD exacerbation: Impression: on systemic steroids and bronchdialators via neb I think that his lung exam is improving. I think he is having a COPD exacerbation secondary to pneumonia. I will treat him with a total of 5 days of steroids, he is day 2/5 decadron today (6) Pulmonary hypertension: Impression: He does have enlarged cardiac silhouette on his chest x-ray but I do not see any history of CHF. In fact his last echocardiogram shows, moderate pulmonary hypertension with PASP 51 mmHg. Evidence of diastolic dysfunction. The date of the study is June 2024. He is not on any diuretic therapy. He is on metoprolol. With his inability to wean off oxygen, I will give him 20mg Lasix IV this afternoon, he does have some pulmonary vascular congestion on review of his chest XR (7) A-fib: Impression: He has a history of atrial fibrillation at home he takes Pradaxa for this. Discussed with pharmacist. he is prescribed metoprolol succinate 12.5mg daily. he has been taking it BID, meto and filling his meds early. Appropriate dosing for metoprolol succinate is once daily. I am going to dose it at 12.5 mg once daily and observe his blood pressure and heart rate. Should his blood pressure and heart rate become elevated I will increase his dosing to 25 mg nightly. I will educate the patient regarding the proper use of this medication and inform his primary care provider regarding his potential misuse of the medication so that is correctly prescribed in the outpatient environment. Qualifiers: Atrial fibrillation type: unspecified chronic Qualified Code(s): I48.20 - Chronic atrial fibrillation, unspecified (8) ANISH on CPAP: Impression: Presents to the emergency department with a CPAP. He will use his home CPAP while admitted. This patient's diagnosis and treatment plan was discussed this AM with attending physician as a part of multi disciplinary rounding meeting. I have spent 53 minutes in the care of this patient today. This includes time [id number], review and ordering of diagnostic imaging and laboratory studies.. Monitoring the patient's signs symptoms, evaluation of medication effectiveness and patient's response to treatment.
[2025-03-27] MEDS: FINASTERIDE 5 MG TABLET PO SCH (14:00)
[2025-03-27] MEDS: METOPROLOL SUCCINATE 25 MG TABLET PO SCH ×2 (14:00→20:57)
[2025-03-27] MEDS: ASPIRIN EC 81 MG TABLET PO SCH (14:00)
[2025-03-27] MEDS: TAMSULOSIN 0.4 MG CAPSULE PO SCH (14:00)
--- NOTE | 2025-03-27 14:01 | PHARMACY PROGRESS NOTE ---
Best Possible Medication History Admit Date and Time: 03/26/25 193 Home Medications Medication Instructions Recorded Confirmed Type aspirin 81 mg tablet,delayed 81 mg PO DAILY 04/18/24 1 05/27/24 History release (Adult Aspirin Regimen) finasteride 5 mg tablet 5 mg PO QAM 10/27/24 5 History tamsulosin 0.4 mg capsule 0.4 mg PO DAILY 10/27/2409/15 History dabigatran etexilate 150 mg 150 mg PO BID 11/09/2409/15 History capsule (Pradaxa) diphenhydramine 25 0.5 tab PO QPM 11/09/2409/15 History mg-acetaminophen 500 mg tablet (Tylenol PM Extra Strength) atorvastatin 20 mg tablet 20 mg PO QPM #90 tabs 03/27/25 Rx ipratropium bromide 42 mcg (0.06 2 spray intranasal BI D #15 mL 02/13/25 03/27/25 Rx %) nasal spray cholecalciferol (vitamin D3) 50 50 mcg PO DAILY 03/27/25 History mcg (2,000 unit) tablet (Vitamin D3) metoprolol succinate 25 mg 12.5 mg PO BID 02/27/2509/15 History tablet,extended release 24 hr vitamin b12/folate supplement 1 tab PO HS 03/27/2509/15 History Processed by: Pharmacy Medications reviewed in ED?: No Medication History completed: Yes Patient Interview: Completed Secondary Source(s): Written medication list (patient states no longer on the omeprazole that is on home list) and Insurance records (insurance records and home list indicate metoprolol succinate 12.5mg once daily, but patient states he is still taking it twice daily) [facility] Statement: As the person ultimately responsible for medication therapy, providers are able to order a medication from an existing home medication list in [facility] via the "Reconcile Routine" prior to Confirmation of that medication by ict support and test engineers. Such practice is discouraged except when the physician, in their clinical judgment, deems that a medical need exists for a medication without regard to previous use.
[2025-03-27] MEDS: FUROSEMIDE 20 MG/2 ML VIAL IVP ONE (16:23)
[2025-03-27] MEDS: APIXABAN 5 MG TABLET PO SCH (20:56)
[2025-03-27] MEDS: ATORVASTATIN 10 MG TABLET PO SCH (20:56)
[2025-03-27] MEDS: ACETAMINOPHEN 325 MG TABLET PO PRN (22:58)
[2025-03-28 04:59] LABS: HCT - HEMATOCRIT 35.5 % (42.0-52.0); HGB - HEMOGLOBIN 11.7 g/dL (14.0-18.0); MEAN PLATELET VOLUME 10.4 fL (7.4-11.4); NRBC ABSOLUTE COUNT (AUTO) 0.00 x10^3/uL; NUCLEATED RED BLOOD CELLS AUTO 0.0 /100WBC; PLT - PLATELET COUNT 135 10^3/uL (130-450); RED CELL DISTRIBUTION WIDTH 14.9 % (12.0-15.0)
[2025-03-28 05:15] LABS: ALT ALANINE AMINOTRANSFERASE 18.0 IU/L (10-60); AST ASPARTATE AMINOTRANSFERASE 33.0 IU/L (10-42); BUN - BLOOD UREA NITROGEN 32.0 mg/dL (6-20); CARBON DIOXIDE - CO2 25.0 mmol/L (21-32); CREATININE 1.3 mg/dL (0.6-1.3); GFR - MDRD 52.0 (>89)
--- NOTE | 2025-03-28 13:35 | Discharge Summary ---
Discharge Summary Admit Date: 03/26/25 Discharge Date: 03/28/25 Discharging Provider: Damaso Perez Primary Care Provider: Steph Mariscal Code Status: Attempt Resuscitation DIAGNOSES Discharge Diagnoses with Status of Each Condition: Acute hypoxemic respiratory failure Resolved Sepsis Discharging on Augmentin CAP Completed azithromycin, discharging on Augmentin Elevated bilirubinResolved COPD exacerbation Discharging with Decadron burst Pulmonary hypertension Has history of this, was treated here with diuretics A-fib Chronic, continue home regimen ANISH Chronic HPI History of Present Illness: 89-year-old male who presents to the emergency department via EMS with acute hypoxia. He was in his usual state of health until this morning when he woke up with increased coughing. His states also he was cold and just could not get warm. She thinks he had a fever. He has a chronic cough with phlegm but it has been much worse for the last few days she is also admitted slight weight increase lower extremity edema over the last several days. He took all of his morning medications today but missed his evening medications. He has past medical history of pulmonary hypertension, carotid stenosis, coronary artery disease without stents obstructive sleep apnea, atrial fibrillation on anticoagulation and COPD. He has a pacemaker/AICD in place. He is followed by Steph Bravo in primary care and also sees cardiology at [facility]; Dr. Mon is his target worker. HOSPITAL COURSE Hospital Course: Patient was admitted in the hospital and started on Decadron burst as well as Rocephin and azithromycin IV. He completed his course of azithromycin, and is now back to room air. I am discharging him with a short course of Augmentin and Decadron. He has been instructed to follow-up with PCP ALLERGIES Allergies Allergy/AdvReac Type Severity Reaction Status Date / Time No Known Drug Allergies Allergy Verified 03/26/25 18:28 MEDICATIONS Ambulatory Orders Medication Instructions Recorded Confirmed aspirin 81 mg tablet,delayed 81 mg PO DAILY 04/18/24 1 05/27/24 release (Adult Aspirin Regimen) finasteride 5 mg tablet 5 mg PO QAM 10/27/24 5 tamsulosin 0.4 mg capsule 0.4 mg PO DAILY 10/27/2409/15 dabigatran etexilate 150 mg 150 mg PO BID 11/09/2409/15 capsule (Pradaxa) diphenhydramine 25 0.5 tab PO QPM 11/09/2409/15 mg-acetaminophen 500 mg tablet (Tylenol PM Extra Strength) atorvastatin 20 mg tablet 20 mg PO QPM #90 tabs 03/27/25 ipratropium bromide 42 mcg (0.06 2 spray intranasal BI D #15 mL 02/13/25 03/27/25 %) nasal spray cholecalciferol (vitamin D3) 50 50 mcg PO DAILY 03/27/25 mcg (2,000 unit) tablet (Vitamin D3) metoprolol succinate 25 mg 12.5 mg PO BID 02/27/2509/15 tablet,extended release 24 hr vitamin b12/folate supplement 1 tab PO HS 03/27/2509/15 Augmentin 875 mg-potassium 1 tab PO BID 3 days #6 tabs 03/28/25 clavulanate 125 mg tablet dexamethasone 6 mg tablet 6 mg PO DAILY 3 days #3 tabs 03/28/25 PHYSICAL EXAM AT DISCHARGE Vital Signs: Vital Signs x48h Temp Pulse Pulse Resp BP BP Pulse Ox 03/28/25 14:26 98.1 F 70 16 153/80 H 95 03/28/25 10:25 92 03/28/25 09:15 98.2 F 70 18 154/82 H 93 03/28/25 09:10 03/28/25 09:06 97.7 F 71 20 151/83 H 95 O2 Flow Rate 03/28/25 14:26 03/28/25 10:25 03/28/25 09:15 03/28/25 09:10 1 03/28/25 09:06 Physical Exam Other/Comments: General Appearance: positive No acute distress and Alert ENT: positive ENT inspection nml Neck: positive Nml inspection Respiratory: positive No respiratory distress, Breath sounds nml and Other (slightly diminished at the bases) Cardiovascular: positive Regular rate & rhythm Abdomen: positive Non-tender and Other (mildly distended) LABS 03/28/25 04:50 03/28/25 04:50 SEPSIS Possible source of Sepsis: Pulmonary Sepsis Criteria: Recorded Respiratory Rate greater than 20 and Respiratory: Increasing oxygen requirements FOLLOW UP Follow Up: With PCP TIME SPENT Time Spent in Discharge (Minutes): 38 Discharge Plan Discharge Patient Disposition: Home, Self Care Condition: Serious Prescriptions: New dexamethasone 6 mg tablet 6 mg PO DAILY 3 Days Qty: 3 0RF amoxicillin-pot clavulanate 875-125 mg tablet 1 tab PO BID 3 Days Qty: 6 0RF Continued atorvastatin 20 mg tablet 20 mg PO QPM Qty: 90 0RF ipratropium bromide 42 mcg (0.06 %) spray,non-aerosol 2 spray intranasal BID Qty: 15 3RF Rx Instructions: administer into each nostril finasteride 5 mg tablet 5 mg PO QAM tamsulosin 0.4 mg capsule 0.4 mg PO DAILY vitamin b12/folate supplement 1 tab PO HS dabigatran etexilate [Pradaxa] 150 mg capsule 150 mg PO BID diphenhydramine-acetaminophen [Tylenol PM Extra Strength] 25-500 mg tablet 0.5 tab PO QPM metoprolol succinate 25 mg tablet extended release 24 hr 12.5 mg PO BID cholecalciferol (vitamin D3) [Vitamin D3] 50 mcg (2,000 unit) tablet 50 mcg PO DAILY aspirin [Adult Aspirin Regimen] 81 mg tablet,delayed release (DR/EC) 81 mg PO DAILY Diet: Cardiac Health Concerns: You are being discharged after treatment for pneumonia, COPD exacerbation, and pulmonary hypertension. You received antibiotics and steroids to help your recovery. Please follow these instructions carefully: Medications * Takeamoxicillin-clavulanate (Augmentin)exactly as prescribed. Complete the full course, even if you feel better. Most patients need 5 days of antibiotics for pneumonia and COPD exacerbation, unless otherwise directed.[2-3][6] * Takedexamethasone (Decadron)as prescribed. Do not stop steroids suddenly; finish the course as directed. Short courses (37 days) are effective and reduce side effects.[4-5][7] * Continue your regular medications for COPD unless told otherwise. Symptoms to Watch For * Call your doctor or seek emergency care if you have: * Trouble breathing or shortness of breath that gets worse * Chest pain * High fever (over 101F) that does not improve * Confusion or trouble waking up * Swelling in your legs or sudden weight gain * Coughing up blood Activity * Gradually increase your activity as tolerated. Early mobilization helps recovery. * Avoid strenuous activity until cleared by your doctor. Follow-Up * Schedule a follow-up appointment with PCP * You may need repeat chest imaging or lung function tests. Other Instructions * Use your inhalers as prescribed. * Practice good hand hygiene and avoid sick contacts. * Eat a balanced diet and stay hydrated. When to Call Your Doctor * If you have side effects from your medications (rash, severe diarrhea, mood changes, etc.) * If you miss a dose, do not double up; take the next dose as scheduled. Questions? * Contact your healthcare team with any concerns or questions about your recovery or medications. Print Language: Lebanese Patient Instructions: COPD and Heart Disease Stand Alone Forms: PCP List Follow-up Care: Jose Luis Penaloza FNP [Primary Care Provider, Family Practice] Vitals documented within 30 minutes of discharge?: Yes
[2025-03-28 14:28] VITALS: BP 153/80; TEMP 98.1; O2SAT 95
== END 2025-03-28 14:28 | disposition home or self-care (01) | DRG 871 ==
LOC: ED 18:17 → MS3 19:34
PROVIDERS: ADMIT Physician Assistant Medical; ATTEND Physician Assistant Medical
DX: J18.9 Pneumonia, unspecified organism; J96.01 Acute respiratory failure with hypoxia; I25.10 Atherosclerotic heart disease of native coronary artery without angina pectoris; Z79.82 Long term (current) use of aspirin; A41.9 Sepsis, unspecified organism; G47.33 Obstructive sleep apnea (adult) (pediatric); J44.0 Chronic obstructive pulmonary disease with (acute) lower respiratory infection; R74.8 Abnormal levels of other serum enzymes; N17.9 Acute kidney failure, unspecified; J44.1 Chronic obstructive pulmonary disease with (acute) exacerbation; I50.810 Right heart failure, unspecified; Z95.0 Presence of cardiac pacemaker; I48.20 Chronic atrial fibrillation, unspecified; Z95.810 Presence of automatic (implantable) cardiac defibrillator; N18.9 Chronic kidney disease, unspecified; R65.20 Severe sepsis without septic shock; Z79.01 Long term (current) use of anticoagulants; Z79.899 Other long term (current) drug therapy; E78.5 Hyperlipidemia, unspecified; Z87.891 Personal history of nicotine dependence; I12.9 Hypertensive chronic kidney disease with stage 1 through stage 4 chronic kidney disease, or unspecified chronic kidney disease; E87.1 Hypo-osmolality and hyponatremia; I27.20 Pulmonary hypertension, unspecified; D64.9 Anemia, unspecified